=== PATIENT | male | born 1960 | race Caucasian/White ===

== ENCOUNTER → 2021-11-23 08:07 | Outpatient (CLI) | payer OTHER, SELFPAY ==
--- NOTE | ~2021-11-23 | CT_ITS ---
EXAMINATION: CTA chest DATE: 11/23/2021 08:51 INDICATION: A 70 aorta dilatation TECHNIQUE: Computed tomographic angiography (CTA) of the chest was performed without and with 100 mL Omnipque-350 intravenous contrast. Maximum intensity projection 3D-reconstructions of the aorta and o ther arteries were constructed by the technologist on a separate workstation. The dose-length product (DLP) was 915.96 mGy-cm. Automated exposure control and iterative reconstruction technique were empl oyed. COMPARISON: None FINDINGS: There is a fusiform aneurysm of the ascending aorta which measures 4.5 cm at the level of t he main pulmonary artery. There is no dissection. There are bilateral pulmonary nodules which measure up to 5 mm in the right lower lobe. Subsegmental atelectasis is seen in the lower lobes. The lungs a re free of focal airspace opacities. There is no pleural effusion or pneumothorax. No pathologically enlarged thoracic lymph nodes are identified. The heart size is normal. A dual-lead pacemaker of the left chest wall ends with its leads in expected positions. Cholelithiasis is noted. There is moderate thoracic spondylosis. IMPRESSION: 1. 4.5 cm fusiform aneurysm of the ascending aorta without dissection. Reviewed, dictated and finalized at location B.
[2021-11-23 08:31] LABS: Estimated Glomerular Filt Rate > 60
== END ==
DX: I71.2 Thoracic aortic aneurysm, without rupture (principal); Z95.0 Presence of cardiac pacemaker; R55 Syncope and collapse; R53.83 Other fatigue; G47.33 Obstructive sleep apnea (adult) (pediatric); E11.9 Type 2 diabetes mellitus without complications; E78.5 Hyperlipidemia, unspecified; I10 Essential (primary) hypertension; Z13.9 Encounter for screening, unspecified; M47.814 Spondylosis without myelopathy or radiculopathy, thoracic region
CPT/HCPCS: 71275; Q9967

== ENCOUNTER 2023-06-16 09:54 | Emergency (ER) | payer BC, SELFPAY ==
--- NOTE | ~2023-06-16 | XR_ITS ---
EXAMINATION: XR chest 2V DATE: 06/16/2023 10:25 INDICATION: Cough. Congestion. TECHNIQUE: Frontal and lateral views of the chest were obtained on 3 radiographs. COMPARISON: Chest single view 03/17/2019, chest CT 11/23/2021 FINDINGS: There is mild atelectasis in the lower lung zones. No pleural effusion or pneumothorax. The heart size is normal. There is a left chest wall pacer with leads in the right atrium and right vent ricle. IMPRESSION: 1. Mild atelectasis in the lower lung zones. Reviewed, dictated and finalized at location A.
[2023-06-16 10:05] VITALS: BP 150/69; PULSE 86; RESP 20; TEMP 36.6; O2SAT 98
--- NOTE | 2023-06-16 10:12 | ED.URI ---
HPI - URI/Sore Throat General Chief Complaint: Upper Respiratory Infection Stated Complaint: Chest Congestion/Cough Time Seen by Provider: 06/16/23 10:12 Source: patient Mode of arrival: ambulatory Limitations: no limitations History of Present Illness HPI Narrative: 62-year-old male presents with complaint sinus congestion, nasal congestion, pressure for the past 2-3 weeks. Reports that he has a lot of drainage. Over the past week he has developed a cough, chest congestion. Patient reports some pain with coughing to right lung. Reports some shortness. Patient is concerned he has pneumonia. Patient also reports history of nodules seen on a CT scan and has not follow-up imaging since. Patient requesting chest x-ray. Afebrile. Alert and well appearing. All Systems reviewed and negative except as noted above. Related Data Home Medications Medication Instructions Recorded Confirmed amlodipine 10 mg tablet mg 06/16/23 atorvastatin 80 mg tablet mg 06/16/23 empagliflozin 25 mg tablet mg 06/16/23 (Jardiance) fluticasone propionate 50 intranasal 06/16/23 mcg/actuation nasal spray,suspension hydrochlorothiazide 25 mg tablet mg 06/16/23 insulin NPH isoph U-100 human 100 unit subcut 06/16/23 unit/mL subcutaneous suspension (Novolin N NPH U-100 Insulin isophane) insulin regular human 100 unit/mL 06/16/23 injection solution (Novolin R Regular U-100 Insulin) losartan 100 mg tablet mg 06/16/23 metoprolol tartrate 50 mg tablet mg 06/16/23 omeprazole 20 mg capsule,delayed mg 06/16/23 release sertraline 50 mg tablet mg 06/16/23 tamsulosin 0.4 mg capsule mg PO 06/16/23 Allergies Allergy/AdvReac Type Severity Reaction Status Date / Time niacin AdvReac Unknown Other Verified 06/16/23 10:14 Review of Systems Review of Systems: CONSTITUTIONAL: Denies fever, chills, or sweats. EYES: Denies visual changes, redness, or discharge. ENT: reports rhinorrhea, congestion, sinus pressure. Denies sore throat, or otalgia. CARDIOVASCULAR: Denies chest pain, palpitations, or edema. RESPIRATORY: report cough and dyspnea with exertion. GASTROINTESTINAL: Denies abdominal pain, nausea, vomiting, or diarrhea. GENITOURINARY: Denies dysuria or hematuria. SKIN: Denies rash or itching. MUSCULOSKELETAL: Denies back pain, joint pain, or myalgia. NEUROLOGIC: Denies headache, numbness, or weakness. PSYCHIATRIC: Denies anxiety or depression. All other systems reviewed are negative, except as documented in HPI. PMFSH Comments At time of signature, agree with nursing past medical, surgical, social and family history. There is no relevant family history pertinent to the presenting complaint. Exam Narrative: GENERAL: This is a well-nourished, well-developed patient, in no apparent distress. HEAD: normocephalic, atraumatic. EYES: PERRL. Sclera clear/white. Vision is grossly intact. EARS: External ears normal, auditory canals clear and without drainage, Fluid bilateral TMs, slightly bulging without perforation or erythema. Hearing grossly intact. NOSE: External nose normal with Nasal drainage, erythema and swelling to bilateral nares. Frontal sinus tenderness bilaterally. THROAT: Mucous membranes moist, Postnasal drainage. NECK: Neck supple, non-tender without lymphadenopathy, masses or thyromegaly. CARDIOVASCULAR: Regular rate and rhythm without murmurs, gallops, or rubs. RESPIRATORY: decreased lung sounds to lower lung salvador bilaterally, otherwise normal. No wheezes, rales, or rhonchi. SKIN: warm, Dry, intact with no suspicious lesions or rash, good texture and turgor. NEURO: awake, alert, and oriented to person, place and time. There were no obvious focal neurologic abnormalities. EXTREMITIES: No joint tenderness, effusion, or edema noted. Course Course Level of Care: Express Care Visit Vital Signs Vital signs: Vital Signs Temperature 36.6 C 06/16/23 10:05 Pulse Rate 86 1
== END 2023-06-16 10:50 | disposition home or self-care (01) ==
PROVIDERS: Emergency Provider Nurse Practitioner Family
DX: J01.90 Acute sinusitis, unspecified (principal)
CPT/HCPCS: 71046; 99213; G0463

== ENCOUNTER 2023-11-21 10:35 | Emergency (ER) | payer BC, SELFPAY ==
[2023-11-21 10:41] VITALS: BP 145/73; PULSE 63; RESP 16; TEMP 36.8; O2SAT 97
--- NOTE | 2023-11-21 11:16 | ED.URI ---
HPI - URI/Sore Throat General Chief Complaint: Upper Respiratory Infection Stated Complaint: Congestion/Headache Time Seen by Provider: 11/21/23 11:20 Source: patient and RN notes reviewed Mode of arrival: ambulatory Limitations: no limitations History of Present Illness HPI Narrative: 63-year-old male presents concern for 4 day history of nasal congestion, drainage. Reports cough is starting. Reports he always gets this and ?settles an up my chest?. He reports sweats at night. Denies fever. Denies known sick contacts MD elicited complaint: cough and nasal congestion Related Data Home Medications Medication Instructions Recorded Confirmed amlodipine 10 mg tablet 10 mg PO DAILY 06/16/23 11/21/23 atorvastatin 80 mg tablet 80 mg PO DAILY 06/16/23 11/21/23 empagliflozin 25 mg tablet 25 mg PO DAILY 06/16/23 11/21/23 (Jardiance) hydrochlorothiazide 25 mg tablet 25 mg PO DAILY 06/16/23 11/21/23 losartan 100 mg tablet 100 mg PO DAILY 06/16/23 11/21/23 omeprazole 20 mg capsule,delayed 20 mg PO DAILY 06/16/23 11/21/23 release sertraline 50 mg tablet 50 mg PO DAILY 06/16/23 11/21/23 tamsulosin 0.4 mg capsule 0.4 mg PO DAILY 06/16/23 11/21/23 fenofibrate 160 mg tablet 160 mg PO DAILY 11/21/23 11/21/23 metformin 1,000 mg tablet 1,000 mg PO BID 11/21/23 11/21/23 rosuvastatin 20 mg tablet 20 mg PO DAILY 11/21/23 11/21/23 temazepam 30 mg capsule 30 mg PO DAILY 11/21/23 11/21/23 Allergies Allergy/AdvReac Type Severity Reaction Status Date / Time niacin AdvReac Unknown Rash Verified 11/21/23 11:04 Review of Systems Review of Systems: CONSTITUTIONAL: Denies malaise, chills, or fever. Reports sweats EYES: Denies visual changes, redness, or discharge. ENT: Reports rhinorrhea, congestion. Denies sinus pain, otalgia and sore throat. CARDIOVASCULAR: Denies chest pain, palpitations, or edema. RESPIRATORY: Reports cough. Denies dyspnea. GASTROINTESTINAL: Denies abdominal pain, nausea, vomiting, diarrhea SKIN: Denies rash or itching. MUSCULOSKELETAL: Denies myalgia. NEUROLOGIC: Denies headache. All systems reviewed & are unremarkable except as noted in HPI and below PMFSH Comments At time of signature, agree with nursing past medical, surgical, social and family history. There is no relevant family history pertinent to the presenting complaint Exam Narrative: GENERAL: Well-appearing, well-nourished, and in no acute distress. HEAD: Normocephalic EYES: PERRLA, conjunctivae clear ENT: Nares clear, turbinates edematous and erythematous, clear discharge. Mucous membranes moist. TM pearly cotton with dull light reflex bilaterally; no tragal tenderness. Oropharynx not erythematous without lesions. Tonsils not enlarged and without exudate, no drooling, no hoarseness, no trismus, uvula midline. NECK: Supple. No lymphadenopathy CHEST: Clear to auscultation, breath sounds equal. No wheezing, rhonchi, rales, or stridor. No respiratory distress, speaks in full sentences. HEART: Regular rate and rhythm. No murmur heard. SKIN: Warm, dry, no rash. NEURO: Alert and oriented x3. PSYCH: Normal mood and affect Course Course Emergency Course: Patient is aware of diagnosis, understands and agrees to treatment plan. Anticipatory guidance given. Patient agrees to follow-up as directed and is aware of reasons to seek care at the emergency department. Portions of this record may have been created with voice recognition software Level of Care: Express Care Visit Vital Signs Vital signs: Vital Signs Temperature 98.2 F 11/21/23 10:41 Pulse Rate 63 11/21/23 10:41 Respiratory Rate 16 11/21/23 10:41 Blood Pressure 145/73 H 11/21/23 10:41 Pulse Oximetry 97 11/21/23 10:41 Oxygen Delivery Room Air 11/21/23 10:41 Temperature 98.2 F 11/21/23 10:41 Pulse Rate 63 11/21/23 10:41 Respiratory Rate 16 11/21/23 10:41 Blood Pressure 145/73 H 11/21/23 10:41 Pulse Oximetry 97 11/21/23 10:41 Oxygen Delivery Room Air 03
== END 2023-11-21 11:32 | disposition home or self-care (01) ==
PROVIDERS: Emergency Provider Nurse Practitioner
DX: J06.9 Acute upper respiratory infection, unspecified (principal); E78.00 Pure hypercholesterolemia, unspecified; I10 Essential (primary) hypertension; E11.9 Type 2 diabetes mellitus without complications; Z95.0 Presence of cardiac pacemaker
CPT/HCPCS: 87426; 87804; 99213; G0463

== ENCOUNTER 2024-07-03 10:36 | Emergency (ER) | payer OTHER, SELFPAY ==
[2024-07-03 10:57] VITALS: BP 107/56; PULSE 64; RESP 16; TEMP 36.8; O2SAT 98
--- NOTE | 2024-07-03 10:59 | ED_ITS ---
HPI - General Adult General Chief complaint: Wound/Laceration Stated complaint: Left Hand Finger Pain Time Seen by Provider: 07/03/24 10:59 Source: patient, RN notes reviewed and old records reviewed Mode of arrival: ambulatory Limitations: no limitations History of Present Illness HPI narrative: 63-year-old male presents to the [facility] with laceration to the left middle finger dorsal aspect at the PIP joint. With bending the finger the wound gapes. wound approximately 1.5 cm Patient with full range of motion. Sensation intact. Bleeding is controlled Occurred 1-1/2 hours prior to arrival Patient reports tetanus 5-6 years ago Per medical record last Tdap 02/2018 Related Data Home Medications Medication Instructions Recorded Confirmed amlodipine 10 mg tablet 10 mg PO DAILY 06/16/23 11/21/23 atorvastatin 80 mg tablet 80 mg PO DAILY 06/16/23 11/21/23 empagliflozin 25 mg tablet 25 mg PO DAILY 06/16/23 11/21/23 (Jardiance) hydrochlorothiazide 25 mg tablet 25 mg PO DAILY 06/16/23 11/21/23 losartan 100 mg tablet 100 mg PO DAILY 06/16/23 11/21/23 omeprazole 20 mg capsule,delayed 20 mg PO DAILY 06/16/23 11/21/23 release sertraline 50 mg tablet 50 mg PO DAILY 06/16/23 11/21/23 tamsulosin 0.4 mg capsule 0.4 mg PO DAILY 06/16/23 11/21/23 fenofibrate 160 mg tablet 160 mg PO DAILY 11/21/23 11/21/23 metformin 1,000 mg tablet 1,000 mg PO BID 11/21/23 11/21/23 rosuvastatin 20 mg tablet 20 mg PO DAILY 11/21/23 11/21/23 temazepam 30 mg capsule 30 mg PO DAILY 11/21/23 11/21/23 Allergies Allergy/AdvReac Type Severity Reaction Status Date / Time niacin AdvReac Unknown Rash Verified 07/03/24 10:55 Review of Systems Review of Systems: All systems reviewed & are unremarkable except as noted in HPI and below Constitutional: Constitutional: Reports no additional constitutional complaints ENT: Reports system reviewed and no additional complaints, except as documented Cardiovascular: Cardiovascular: Reports no additional cardiovascular complaints, Denies chest pain and Denies dyspnea Respiratory: Respiratory: Reports no additional respiratory complaints, Denies chest congestion, Denies cough and Denies dyspnea Gastrointestinal: Gastrointestinal: Reports no additional gastrointestinal complaints, Denies abdominal pain, Denies nausea and Denies vomiting Musculoskeletal: Musculoskeletal: Reports no additional musculoskeletal complaints Integumentary/Breasts: Skin/Breast: Reports as per HPI and Reports wounds PMFSH Past Medical History Medical History (Updated 07/03/24 @ 19:02 by Mavis Selby APRN) H/O gastroesophageal reflux (GERD) History of high blood pressure History of high cholesterol Comments At the time of my signature, I reviewed and agree with the nursing past medical, surgical, social, and family history. There is no relevant family history pertinent to the patient complaint. Exam Const: General: cooperative, healthy appearing, comfortable, no acute distress, well developed, alert and well nourished Nutritional Appearance: well nourished Orientation/consciousness: patient oriented x3 Limitations: no limitations HENMT: Head: normal to inspection Ears: hearing grossly normal bilaterally and external ears normal Face/Nose/Sinus: Normal external nose present, normal facial exam and face symmetric Face and sinus: normal facial exam and face symmetric Eyes: General: appearance normal, both eyes and all related structures Alignment and Position: alignment normal Periorbital: periorbital findings normal Neck: Neck: normal visual inspection, full ROM, no lymphadenopathy and no meningeal signs Chest: Chest palpation & inspection: normal inspection of the chest Resp: Effort & Inspection: normal respiratory effort and able to speak in complete sentences Cardio: Rate: regular rate Skin: General skin exam: normal color and no rashes or lesions noted Lesions: no lesions Rashes: no rashes Other: 1.5 cm left 3rg FInger PIP dorsal Neuro: General: patient oriented x3, gait normal, tone normal, moves all extremities and no meningeal signs Cognition (Neuro): normal cognition S peech: normal speech Gait exam (Neuro): Normal gait present Extrem: General: normal to inspection, full ROM, capillary refill normal and normal gait Psych: Appearance: grossly normal and well kempt Mental Status: mental status grossly normal Speech and movement: Normal speech and movement present and Clear speech present Affect: normal affect Attitude: cooperative Course Course Level of Care: Express Care Visit Vital Signs Vital signs: Vital Signs Temperature 98.2 F 07/03/24 10:57 Pulse Rate 64 07/03/24 10:57 Respiratory Rate 16 07/03/24 10:57 Blood Pressure 107/56 L 07/03/24 10:57 Pulse Oximetry 98 07/03/24 10:57 Oxygen Delivery Room Air 07/03/24 10:57 Temperature 98.2 F 07/03/24 10:57 Pulse Rate 64 07/03/24 10:57 Respiratory Rate 16 07/03/24 10:57 Blood Pressure 107/56 L 07/03/24 10:57 Pulse Oximetry 98 07/03/24 10:57 Oxygen Delivery Room Air 07/03/24 10:57 Reviewed Procedures Laceration Laceration 1: Date: 07/03/24 Time: 11:20 Site: hand (3rd finger) Side (If applicable): left Size (cm): 1.5 Description: linear Depth: simple, single layer Local Anesthetic: lidocaine 1% Amount of anesthesia used (mL): 3.5 (Digital block) Pre-repair: wound explored and irrigated (200) ====== Skin Level ====== Skin layer closed with: nylon Size (cm): 5-0 Number of sutures: 2 Technique: simple, interrupted ====== Subcutaneous Layer ====== ====== Muscle Layer ====== ====== Tendon Layer ====== Medical Decision Making MDM Narrative Medical decision making narrative: Patient sitting comfortably in exam room. Nontoxic, vitals stable. Patient in no acute distress Patient presents for a laceration to the finger. No neuro deficits Two sutures placed. Patient tolerated well Updated tetanus Patient appropriate for outpatient treatment and follow-up Discharge instructions reviewed with patient, as well as provided in writing per nursing staff. The instructions also include specific and strict return/GO TO THE ER as well as f/u information. All questions have been answered, and the patient deny any further questions with discharge and discharge plan. Some parts of this dictation were generated by voice recognition software and may contain typographical and/or grammatical inaccuracies. Differential Diagnosis Differential Diagnosis: Finger laceration Medical Records Medical records reviewed: Yes I reviewed the external patient's medical records. Vital Signs Vital Signs: Vital Signs Temperature 98.2 F 07/03/24 10:57 Pulse Rate 64 07/03/24 10:57 Respiratory Rate 16 07/03/24 10:57 Blood Pressure 107/56 L 07/03/24 10:57 Pulse Oximetry 98 07/03/24 10:57 Oxygen Delivery Room Air 07/03/24 10:57 Temperature 98.2 F 07/03/24 10:57 Pulse Rate 64 07/03/24 10:57 Respiratory Rate 16 07/03/24 10:57 Blood Pressure 107/56 L 07/03/24 10:57 Pulse Oximetry 98 07/03/24 10:57 Oxygen Delivery Room Air 07/03/24 10:57 Reviewed Lab Data Lab results reviewed: Yes I reviewed the patient's lab results. Labs: Reviewed Critical Care Time Critical Care Time Critical Care Time: No Discharge Plan Discharge Clinical Impression: Finger laceration, Vaccine for [id number], combined Patient Disposition: Home, Self-Care Condition: Stable Instructions: Antibiotic Form, Finger Laceration (ED) Additional Instructions: Wash area twice a day with warm soapy water, pat dry Wear the finger splint for minimum of 3 days to reduce the chances of bending the area. Follow-up with your primary care provider in 10 days to have your stitches removed New or worsening symptoms go directly to the emergency room Patient Language: Croatian Prescriptions: No Action atorvastatin 80 mg tablet 80 mg PO DAILY tamsulosin 0.4 mg capsule 0.4 mg PO DAILY amlodipine 10 mg tablet 10 mg PO DAILY omeprazole 20 mg capsule,delayed release(DR/EC) 20 mg PO DAILY hydrochlorothiazide 25 mg tablet 25 mg PO DAILY losartan 100 mg tablet 100 mg PO DAILY sertraline 50 mg tablet 50 mg PO DAILY Jardiance 25 mg tablet 25 mg PO DAILY metformin 1,000 mg tablet 1,000 mg PO BID temazepam 30 mg capsule 30 mg PO DAILY rosuvastatin 20 mg tablet 20 mg PO DAILY fenofibrate 160 mg tablet 160 mg PO DAILY methylprednisolone [Medrol (Pablo)] 4 mg tablets,dose pack See Rx Instructions .ROUTE .COMPLEX Qty: 21 0RF Rx Instructions: orally per package directions Follow-up/Referrals: PHYSICIAN,BODY LINER [Primary Care Provider] - Stand Alone Forms: Work/School Release IP Time of Disposition: 11:32
[2024-07-03] MEDS: LIDOCAINE HCL 1% LOCAL INJ 2 ML AMPUL 4 ML INFILTRATE (11:16)
[2024-07-03] MEDS: TETANUS,DIPHTHERIA,AC PERTUSSIS ADULT (0.5 ML) BOOSTRIX IM (11:16)
== END 2024-07-03 11:45 | disposition home or self-care (01) ==
PROVIDERS: Emergency Provider Nurse Practitioner
DX: S61.213A Laceration without foreign body of left middle finger without damage to nail, initial encounter (principal); X58.XXXA Exposure to other specified factors, initial encounter; Z23 Encounter for immunization; K21.9 Gastro-esophageal reflux disease without esophagitis; I10 Essential (primary) hypertension; E78.00 Pure hypercholesterolemia, unspecified
CPT/HCPCS: 12001; 90471; 90715; 99212; G0463; J2003

== ENCOUNTER 2024-07-14 10:30 | Emergency (ER) | payer OTHER, SELFPAY ==
[2024-07-14 10:42] VITALS: BP 121/85; PULSE 68; RESP 18; TEMP 37; O2SAT 97
--- NOTE | 2024-07-14 11:00 | ED.SKABFB ---
HPI - Skin/Abscess/Foreign Bdy General Chief complaint: Skin/Abscess/Foreign Body Stated complaint: suture removal Time Seen by Provider: 07/14/24 10:53 Source: patient and RN notes reviewed Mode of arrival: ambulatory Limitations: no limitations History of Present Illness HPI narrative: Patient presents today for suture removal from his left 3rd finger. He had 2 sutures placed on 07/03/2024. Denies any issues with them. Related Data Home Medications Medication Instructions Recorded Confirmed amlodipine 10 mg tablet 10 mg PO DAILY 06/16/23 11/21/23 atorvastatin 80 mg tablet 80 mg PO DAILY 06/16/23 11/21/23 empagliflozin 25 mg tablet 25 mg PO DAILY 06/16/23 11/21/23 (Jardiance) hydrochlorothiazide 25 mg tablet 25 mg PO DAILY 06/16/23 11/21/23 losartan 100 mg tablet 100 mg PO DAILY 06/16/23 11/21/23 omeprazole 20 mg capsule,delayed 20 mg PO DAILY 06/16/23 11/21/23 release sertraline 50 mg tablet 50 mg PO DAILY 06/16/23 11/21/23 tamsulosin 0.4 mg capsule 0.4 mg PO DAILY 06/16/23 11/21/23 fenofibrate 160 mg tablet 160 mg PO DAILY 11/21/23 11/21/23 metformin 1,000 mg tablet 1,000 mg PO BID 11/21/23 11/21/23 rosuvastatin 20 mg tablet 20 mg PO DAILY 11/21/23 11/21/23 temazepam 30 mg capsule 30 mg PO DAILY 11/21/23 11/21/23 Allergies Allergy/AdvReac Type Severity Reaction Status Date / Time niacin AdvReac Unknown Rash Verified 07/14/24 11:00 Review of Systems Review of Systems: CONSTITUTIONAL: Denies body aches, fever, chills, or sweats. EYES: Denies visual changes, redness, or discharge. ENT: Denies rhinorrhea, congestion, sore throat, or otalgia. CARDIOVASCULAR: Denies chest pain, palpitations, or edema. RESPIRATORY: Denies cough or dyspnea. GASTROINTESTINAL: Denies abdominal pain, nausea, vomiting, or diarrhea. GENITOURINARY: Denies dysuria or hematuria. SKIN: + sutures MUSCULOSKELETAL: Denies back pain, joint pain, or myalgia. NEUROLOGIC: Denies headache, numbness, tingling, or weakness. PSYCH: Denies depression or anxiety. [facility] Past Medical History Medical History H/O gastroesophageal reflux (GERD) History of high blood pressure History of high cholesterol Comments At time of signature, I have reviewed and agree with nursing past medical, surgical, social and family history unless otherwise noted. Please see nursing chart for further information. There is no relevant family history pertinent to the presenting complaint Exam Narrative: GENERAL: Well-appearing, well-nourished, and in no acute distress. HEAD: Normocephalic, atraumatic. EYES: EOMI. No redness or drainage. Conjunctivae normal. ENT: Mucous membranes pink and moist. NECK: Normal AROM. CHEST: No respiratory distress. EXTREMITIES: Normal range of motion. No edema. SKIN: Warm, dry, no rash. Capillary refill normal. Normal skin turgor. 2 intact sutures to the left 3rd finger. No erythema, edema, drainage. NEURO: No focal deficits. Alert and oriented x3. Gait steady. PSYCH: Normal affect. No signs of depression or anxiety. Course Course Emergency Course: 6 2 sutures are removed. Patient tolerated procedure well. Dressed with Band-Aid. Level of Care: Express Care Visit Vital Signs Vital signs: Vital Signs Temperature 98.6 F 07/14/24 10:42 Pulse Rate 68 07/14/24 10:42 Respiratory Rate 18 07/14/24 10:42 Blood Pressure 121/85 07/14/24 10:42 Pulse Oximetry 97 07/14/24 10:42 Oxygen Delivery Room Air 07/14/24 10:42 Temperature 98.6 F 07/14/24 10:42 Pulse Rate 68 07/14/24 10:42 Respiratory Rate 18 07/14/24 10:42 Blood Pressure 121/85 07/14/24 10:42 Pulse Oximetry 97 07/14/24 10:42 Oxygen Delivery Room Air 07/14/24 10:42 Reviewed MDM - Skin/Abscess/Foreign Bdy MDM Narrative Medical decision making narrative: Wound healing appropriately. Sutures removed without difficulty. Anticipatory guidance given. Differential Diagnosis Differential diagnosis: Likely abscess of skin or subcutaneous tissue, cellulitis and other (Suture removal) Critical Care Time Critical Care Time Critical Care Time: No Discharge Plan Discharge Clinical Impression: Visit for suture removal Patient Disposition: Home, Self-Care Condition: Stable Instructions: Stitches Removal (ED) Additional Instructions: Both of your sutures have been removed without issue. Follow-up with your PCP with any additional concerns. Your blood pressure was elevated above 120/80 today at Urgent Care. This puts you above the threshold for follow up. Please schedule a followup visit with your personal physician as soon as possible, for further evaluation and treatment. Even blood pressure exceeding 120/80 may indicate pre-hypertension. Prescriptions: No Action atorvastatin 80 mg tablet 80 mg PO DAILY tamsulosin 0.4 mg capsule 0.4 mg PO DAILY amlodipine 10 mg tablet 10 mg PO DAILY omeprazole 20 mg capsule,delayed release(DR/EC) 20 mg PO DAILY hydrochlorothiazide 25 mg tablet 25 mg PO DAILY losartan 100 mg tablet 100 mg PO DAILY sertraline 50 mg tablet 50 mg PO DAILY Jardiance 25 mg tablet 25 mg PO DAILY metformin 1,000 mg tablet 1,000 mg PO BID temazepam 30 mg capsule 30 mg PO DAILY rosuvastatin 20 mg tablet 20 mg PO DAILY fenofibrate 160 mg tablet 160 mg PO DAILY methylprednisolone [Medrol (Pablo)] 4 mg tablets,dose pack See Rx Instructions .ROUTE .COMPLEX Qty: 21 0RF Rx Instructions: orally per package directions Follow-up/Referrals: PHYSICIAN,IN TUBE CONVERSION TECHNICIAN [Primary Care Provider] - Time of Disposition: 11:03
== END 2024-07-14 11:05 | disposition home or self-care (01) ==
PROVIDERS: Emergency Provider Nurse Practitioner
DX: S61.213D Laceration without foreign body of left middle finger without damage to nail, subsequent encounter (principal); X58.XXXD Exposure to other specified factors, subsequent encounter; K21.9 Gastro-esophageal reflux disease without esophagitis; I10 Essential (primary) hypertension; E78.00 Pure hypercholesterolemia, unspecified
CPT/HCPCS: 99211; G0463

== ENCOUNTER 2025-07-24 06:51 | Emergency (ER) | payer OTHER, SELFPAY ==
[2025-07-24 06:57] VITALS: BP 160/83; PULSE 74; RESP 14; TEMP 36.8; O2SAT 96
[2025-07-24 07:04] VITALS: BP 160/83; PULSE 74; RESP 14; TEMP 36.8
--- OUTSIDE RECORDS SUMMARY | 2025-07-24 07:33 | XMS_ITS | Encounter Summary ---
Author Organization [facility] Address [address] [place] [address] Phone Care Team Providers Care Flute Grinder Name Role Phone Troy Batres MD Unavailable Kourtney Resendez APRN, CARDIOVASCULAR OPERATING ROOM NURSE Primary Care P rovider Royal Salinas MD Unavailable [phone] Nicholas Mishra MD Unavailable Jany De La Torre APRN, [facility] Unavailable + [phone] Tayler Garrett APRN, CARDIOVASCULAR OPERATING ROOM NURSE Unavailable Reason for Visit * Reason Comments Medication Refill Encounter Details Date Type Department Care Team (Late st Contact Info) Description 04/20/2021 [facility] [place] [address] [place] [address] Kourtney Resendez APRN, CARDIOVASCULAR OPERATING ROOM NURSE [address] [place] [address] Medication Refill Social History Tobacco Use Types Packs/Day Years Used Date Smoking Tobacco: Never Smokeless Tobacco: Never Alcohol Use Standard Drinks/Week Comments Yes 2 (1 standard drink = 0.6 oz pur e alcohol) PHQ-2 Answer Date Recorded PHQ-2 Score 1 10/02/2019 Sexually Active Control Partners Comments Yes None Female Sex and Gender Information Value Date Recorded Sex Assigned at Male 04/16/2023 5:20 PM CDT Legal Sex Male 10:26 PM CDT Gender Identity Male 04/16/2023 5:20 PM CDT Sexual Orientation Not on file documented as of this encounter Miscellaneous Notes * Telephone Encounter - Dona Comer RN - 04/20/2021 2:42 PM CDT temazepam (RESTORIL) 30 MG Capsule 90 Capsule 0 03/23/2021 Refill too soon documented in this encounter Plan of Treatment Upcoming Encounters Date Type Department Care Team (Late st Contact Info) Description 08/05/2025 11:00 AM SENIOR MATERIALS ANALYST Office Visit [facility] #2 [place] [address] Nicholas Mishra MD #[address] [address] 10/20/2025 3:30 PM SENIOR MATERIALS ANALYST Office Visit [facility] - Primary Care - [place] [address] [place] [address] Kourtney Resendez APRN, CARDIOVASCULAR OPERATING ROOM NURSE [address] [place] [address] documented as of this encounter Visit Diagnoses Diagnosis Insomnia, unspecified type documented in this encounter Additional Health Concerns Infection Onset Date Last Indicated Resolved Time COVID - 19 09/05/2022 09/05/2022 09/15/2022 12:1 6 AM SENIOR MATERIALS ANALYST Respiratory Rule-Out 09/05/2022 09/05/2022 023 12:00 PM SENIOR MATERIALS ANALYST COVID - 19 Confirmed 09/30/2022 09/30/2022 023 12:17 AM SENIOR MATERIALS ANALYST COVID - 19 09/30/2022 09/30/2022 10/10/2022 12:1 6 AM SENIOR MATERIALS ANALYST COVID - 19 04/19/2023 04/19/2023 04/29/2023 12:1 8 AM CDT Assessment Noted Time PHQ-9 Depression Total Score: 1 10/02/19 20 3:00 PM SENIOR MATERIALS ANALYST documented as of this encounter Care Teams Flute Grinder Relationship Specialty Start Date End Date Kourtney Resendez APRN, CARDIOVASCULAR OPERATING ROOM NURSE [address] [place] [address] PCP - General Advanced Practice Nurse 10/19/17 Troy Batres MD [address] [place] [phone] Consulting Physician Pulmonary Disease 04/03/17 Royal Salinas MD #[address] [phone] Consulting Physician General Surgery 02/06/23 Nicholas Mishra MD #[address] [phone] Consulting Physician Urological Surgery 02/14/23 Jany De La Torre APRN, FLEET DISPATCH MANAGER #[address] [place] [address] Nurse Practitioner Advanced Practice Nurse 05/23/22 Tayler Garrett APRN, CARDIOVASCULAR OPERATING ROOM NURSE [address] [place] [address] Nurse Practitioner Advanced Practice Nurse 12/13/22 documented as of this encounter
--- OUTSIDE RECORDS SUMMARY | 2025-07-24 07:33 | XMS_ITS | Encounter Summary ---
Author Organization [facility] Address [address] [place] [address] Phone Care Team Providers Care Public Affairs Manager Name Role Phone Troy Batres MD Unavailable Kourtney Resendez APRN, SECOND OPERATOR Primary Care P rovider Royal Salinas MD Unavailable [phone] Nicholas Mishra MD Unavailable Jany De La Torre APRN, [facility] Unavailable [phone] Tayler Garrett APRN, SECOND OPERATOR Unavailable Encounter Details Date Type Department Care Team (Late st Contact Info) Description 11/09/2021 Transcribe Orders [facility] Central Scheduling [address] [place] [address] John Salazar [address] [place] [id number] Social History Tobacco Use Types Packs/Day Years Used Date Smoking Tobacco: Never Smokeless Tobacco: Never Alcohol Use Standard Drinks/Week Comments Yes 2 (1 standard drink = 0.6 oz pur e alcohol) PHQ-2 Answer Date Recorded Total Score - Questions 1-9 0 08/2 11/2020 Sexually Active Control Partners Comments Yes None Female Sex and Gender Information Value Date Recorded Sex Assigned at Male 04/16/2023 5:20 PM CDT Legal Sex Male 10:26 PM CDT Gender Identity Male 04/16/2023 5:20 PM CDT Sexual Orientation Not on file COVID-19 Exposure Response Date Recorded In the last month, have you been in contact with someone who was confirmed or suspected to have Coronavirus / COVID-19? No / Unsure 11/09/2021 7:32 AM MEDICAL DETAILIST documented as of this encounter Functional Status documented as of this encounter Mental Status * Question Answer Entry Date Author BP 122/60 11/09/2021 7:57 AM MEDICAL DETAILIST Mary Jorgensen, CHEMICAL MIXER Temp 97.8 11/09/2021 7:57 AM MEDICAL DETAILIST Mary Jorgensen, CHEMICAL MIXER Pulse 66 11/09/2021 7:57 AM MEDICAL DETAILIST Mary Jorgensen, CHEMICAL MIXER SpO2 95 11/09/2021 7:57 AM MEDICAL DETAILIST Mary Jorgensen, CHEMICAL MIXER Weight 3968 11/09/2021 7:57 AM MEDICAL DETAILIST Mary Jorgensen, CHEMICAL MIXER documented in this encounter Plan of Treatment Upcoming Encounters Date Type Department Care Team (Late st Contact Info) Description 08/05/2025 11:00 AM MEDICAL DETAILIST Office Visit [facility] #[address] [place] [phone] Nicholas Mishra MD #[address] [phone] 10/20/2025 3:30 PM MEDICAL DETAILIST Office Visit [facility] - Primary Care - [place] [address] [place] [address] Kourtney Resendez APRN, SECOND OPERATOR [address] [place] [address] documented as of this encounter Visit Diagnoses Not on filedocumented in this encounter Additional Health Concerns Infection Onset Date Last Indicated Resolved Time COVID - 19 09/05/2022 09/05/2022 09/15/2022 12:1 6 AM MEDICAL DETAILIST Respiratory Rule-Out 09/05/2022 09/05/2022 023 12:00 PM MEDICAL DETAILIST COVID - 19 Confirmed 09/30/2022 09/30/2022 023 12:17 AM MEDICAL DETAILIST COVID - 19 09/30/2022 09/30/2022 10/10/2022 12:1 6 AM MEDICAL DETAILIST COVID - 19 04/19/2023 04/19/2023 04/29/2023 12:1 8 AM CDT Assessment Noted Time PHQ-9 Depression Total Score: 0 04/25/20 21 3:00 PM CDT documented as of this encounter Care Teams Public Affairs Manager Relationship Specialty Start Date End Date Kourtney Resendez APRN, SECOND OPERATOR [address] [place] [address] PCP - General Advanced Practice Nurse 10/19/17 Troy Batres MD [address] [place] [address] Consulting Physician Pulmonary Disease 04/03/17 Royal Salinas MD #2 [facility] [address] [place] [address] Consulting Physician General Surgery 02/06/23 Nicholas Mishra MD #2 [facility] [address] [place] [address] Consulting Physician Urological Surgery 02/14/23 Jany De La Torre APRN, FIRE INSPECTOR [address] [place] [address] Nurse Practitioner Advanced Practice Nurse 05/23/22 Tayler Garrett APRN, SECOND OPERATOR [address] [place] [address] Nurse Practitioner Advanced Practice Nurse 12/13/22 documented as of this encounter
--- OUTSIDE RECORDS SUMMARY | 2025-07-24 07:33 | XMS_ITS | Encounter Summary ---
Author Organization [facility] Address [address] [place] [address] Care Team Providers Care Registered Medical Assistant Name Role Phone Donell Maza MD Primary Care Provider [phone] Encounter Details Date Type Department Care Team (Late st Contact Info) Description 03/19/2020 Lab Requisition [facility] [address] [place] [address] Shelton Wiley MD Social History Tobacco Use Types Packs/Day Years Used Date Smoking Tobacco: Never Smokeless Tobacco: Never Alcohol Use Standard Drinks/Week Comments Yes 1.7 (1 standard drink = 0.6 oz p ure alcohol) Sex and Gender Information Value Date Recorded Sex Assigned at Not on file Legal Sex Male 7:09 PM WALL CLEANER Gender Identity Not on file Sexual Orientation Not on file documented as of this encounter Plan of Treatment Not on file documented as of this encounter Procedures Procedure Name Priority Date/Time Associated Diagnosis Comments SARS-COV-2 (COVID-19) IN HOUSE Routine 03/18/2020 4:05 AM CDT documented in this encounter Results * (ABNORMAL) SARS-COV-2 (COVID-19) IN HOUSE (03/18/2020 4:05 AM CDT) COVID-19 PCR Detected( AA) Not detected, Invalid 03/20/2020 12:41 AM CDT [facility] Microbiology SPECIMEN FROM NASOPHARYNGEAL STRUCTURE / Unknown Collection / Unknown 03/18/2020 4:05 AM CDT 03/19/2020 10:25 AM CDT Narrative [facility] - 03/20/2020 12:41 AM CDT This Real Time RT-PCR assay was developed and its performance characteristics determined by [facility]. This test has been authorized by the Food and Drug administration (FDA)under an Emergency Use Authorization (EUA). This test has been validated in accordance with the FDA's guidance document Policy for Diagnostic Testing in Laboratories Certified to perform High Complexity Testing under CLIA prior to Emergency Use Authorization for Coronavirus Disease-2019 during the Public Health Emergency issued on November 01, 2019. FDA independent review of this validation is pending. This test is only authorized for the duration of time the declaration that circumstances exist justifying the authorization of emergency use of in vitro diagnostic tests for detection of SARS-CoV-2 virus and/or diagnosis of COVID-19 infection under section 564(b)(1) of the Act, 21 U.S.C 360bbb-3 (b)(1), unless the authorization is terminated or revoked sooner. Shelton Wiley MD LAB - MICROBIOLOGY ORDERABL ES Final Result [facility] [address] [place], [place] [address], [facility] [phone] documented in this encounter Visit Diagnoses Not on filedocumented in this encounter Additional Health Concerns Infection Onset Date Last Indicated Resolved Time COVID-19 Confirmed 03/18/2020 03/18/2020 0 4:34 AM CDT COVID-19 Under Investigation 03/19/2020 03/18/2020 03/20/2020 12:41 AM CDT documented as of this encounter Care Teams Registered Medical Assistant Relationship Specialty Start Date End Date Donell Maza MD PCP - General 05/22/11 documented as of this encounter
--- OUTSIDE RECORDS SUMMARY | 2025-07-24 07:33 | XMS_ITS | Encounter Summary ---
Author Organization [facility] Address [address] [place] [address] Phone Care Team Providers Care Farm Reporter Name Role Phone Troy Batres MD Unavailable Kourtney Resendez APRN, INTERNET SALES ASSOCIATE Primary Care P rovider Royal Salinas MD Unavailable [phone] Nicholas Mishra MD Unavailable Jany De La Torre APRN, [facility] Unavailable + [phone] Tayler Garrett APRN, INTERNET SALES ASSOCIATE Unavailable Reason for Visit * Reason Comments Medication Refill Encounter Details Date Type Department Care Team (Late st Contact Info) Description 01/15/2022 Refill [facility] - Primary Care - [place] [address] [place] [address] Kourtney Resendez APRN, INTERNET SALES ASSOCIATE [address] [place] [address] Medication Refill Social History Tobacco Use Types Packs/Day Years Used Date Smoking Tobacco: Never Smokeless Tobacco: Never Alcohol Use Standard Drinks/Week Comments Yes 2 (1 standard drink = 0.6 oz pur e alcohol) PHQ-2 Answer Date Recorded Total Score - Questions 1-9 0 04/04 Sexually Active Control Partners Comments Yes None Female Sex and Gender Information Value Date Recorded Sex Assigned at Male 04/16/2023 5:20 PM CDT Legal Sex Male 10:26 PM CDT Gender Identity Male 04/16/2023 5:20 PM CDT Sexual Orientation Not on file COVID-19 Exposure Response Date Recorded In the last 10 days, have yo u been in contact with someone who was confirmed or suspected to have Coronavirus/COVID-19? No / Unsure 01/18/2022 8:44 AM CDT documented as of this encounter Functional Status documented as of this encounter Mental Status * Question Answer Entry Date Author BP 120/70 01/18/2022 8:56 AM CDT Mamadou Wheat, RMA Temp 97.5 01/18/2022 8:56 AM CDT Mamadou Wheat, RMA Pulse 81 01/18/2022 8:56 AM CDT Mamadou Wheat, RMA SpO2 96 01/18/2022 8:56 AM CDT Mamadou Wheat, RMA Weight 3968 01/18/2022 8:56 AM CDT Mamadou Wheat, RMA documented in this encounter Plan of Treatment Upcoming Encounters Date Type Department Care Team (Late st Contact Info) Description 08/05/2025 11:00 AM PARALEGAL INSTRUCTOR Office Visit [facility] [address] [place] [phone] Nicholas Mishra MD #2 [facility], [address] [address] 10/20/2025 3:30 PM PARALEGAL INSTRUCTOR Office Visit [facility] - Primary Care - [place] [address] [place] [phone] Kourtney Resendez APRN, INTERNET SALES ASSOCIATE [address] [place] [address] documented as of this encounter Visit Diagnoses Diagnosis Mixed hyperlipidemia documented in this encounter Additional Health Concerns Infection Onset Date Last Indicated Resolved Time COVID - 19 09/05/2022 09/05/2022 09/15/2022 12:1 6 AM PARALEGAL INSTRUCTOR Respiratory Rule-Out 09/05/2022 09/05/2022 023 12:00 PM PARALEGAL INSTRUCTOR COVID - 19 Confirmed 09/30/2022 09/30/2022 023 12:17 AM PARALEGAL INSTRUCTOR COVID - 19 09/30/2022 09/30/2022 10/10/2022 12:1 6 AM PARALEGAL INSTRUCTOR COVID - 19 04/19/2023 04/19/2023 04/29/2023 12:1 8 AM CDT Assessment Noted Time PHQ-9 Depression Total Score: 0 04/25/20 21 3:00 PM CDT documented as of this encounter Care Teams Farm Reporter Relationship Specialty Start Date End Date Kourtney Resendez APRN, INTERNET SALES ASSOCIATE [address] [place] [address] PCP - General Advanced Practice Nurse 10/19/17 Troy Batres MD [address] [place] [address] Consulting Physician Pulmonary Disease 04/03/17 Royal Salinas MD #2 [facility] [address] [place] [address] Consulting Physician General Surgery 02/06/23 Nicholas Mishra MD #2 [facility] [address] [place] [address] Consulting Physician Urological Surgery 02/14/23 Jany De La Torre APRN, SALES AND MARKETING DIRECTOR #[address] [place] [address] Nurse Practitioner Advanced Practice Nurse 05/23/22 Tayler Garrett APRN, INTERNET SALES ASSOCIATE #[address] [place] [address] Nurse Practitioner Advanced Practice Nurse 12/13/22 documented as of this encounter
--- OUTSIDE RECORDS SUMMARY | 2025-07-24 07:33 | XMS_ITS | Clinical Summary ---
Author Organization [facility] Address [address] [place] [address] Care Team Providers Care Hog Room Supervisor Name Role Phone Donell Maza MD Primary Care Provider [phone] Source Comments [facility],non-owned Affiliates and Associated Physician Practices is amultiple site organization consisting of ambulatory clinics and hospital sitesin [place], [place], [place] and [place]. This disclosure is being madepursuant to the Care Everywhere program and may not contain all information available regarding this patient. Last updated 18.[facility], [place] Family History Medical History Relation Name Comments Cancer Father Tuberculosis Father Cancer Maternal Grandmother Lung Disease Maternal Grandmother Cancer Mother Diabetes Mother Lung Disease Mother Cancer Sister Relation Name Status Comments Father Maternal Grandmother Mother Sister Social History Tobacco Use Types Packs/Day Years Used Date Smoking Tobacco: Never Smokeless Tobacco: Never Alcohol Use Standard Drinks/Week Comments Yes 1.7 (1 standard drink = 0.6 oz p ure alcohol) Sex and Gender Information Value Date Recorded Sex Assigned at Not on file Legal Sex Male 7:09 PM LEAD GENERATION REPRESENTATIVE Gender Identity Not on file Sexual Orientation Not on file Plan of Treatment Health Maintenance Due Date Last Done Comments COLOGUARD (AGES 45-75) - COLON CA SCREENING 1960 COLON MONITORING 1960 COLONOSCOPY - COLON CA SCREENING 1960 CT COLONOGRAPHY - COLON CA SCREENING 1960 Colorectal Cancer Screening 1960 FIT - COLON CA SCREENING 1960 FLEX SIG - COLON CA SCREENING 1960 LIPID TESTING 1960 HIV SCREENING 1975 HEPATITIS C SCREENING 07/24/1978 DTAP/TDAP/TD VACCINES (1 - Tdap) 1979 PNEUMOCOCCAL VACCINE 50+ (1 of 1 - PCV) 2010 ZOSTER VACCINE (1 of 2) 2010 DEPRESSION SCREENING 09/03/2024 COVID-19 VACCINE (4 - 2024- season) 2025 03/19/2022, 11/23/2020, 11/02/2020 INFLUENZA VACCINE (#1) 2025 , 11/09/2021, 06/28/2020, Additional history exists Respiratory Syncytial Virus (RSV) Vaccine Pt: or over 60 yrs (1 - 1-dose 75+ series) 2035 HEPATITIS B VACCINE Aged Out No longe r eligible based on patient's age to complete this topic HIB VACCINE Aged Out No longer eligi ble based on patient's age to complete this topic HPV VACCINE Aged Out No longer eligi ble based on patient's age to complete this topic MENINGOCOCCAL (Group B) VACCINE SHARED DECISION-MAKING Aged Out No longer eligible based on patient's age to complete this topic MENINGOCOCCAL GROUPS A/C/Y/W VACCINE Aged Out No longer eligible based on patient's age to complete this topic Insurance [facility] Care Teams Hog Room Supervisor Relationship Specialty Start Date End Date Donell Maza MD PCP - General 05/22/11
--- OUTSIDE RECORDS SUMMARY | 2025-07-24 07:33 | XMS_ITS | Encounter Summary ---
Author Organization [facility] Address [address] [place] [address] Phone Care Team Providers Care Software Design Manager Name Role Phone Troy Batres MD Unavailable Kourtney Resendez APRN, ASSISTANT PRESS OPERATOR OFFSET Primary Care P rovider Royal Salinas MD Unavailable Nicholas Mishra MD Unavailable Jany De La Torre APRN, [facility] Unavailable [phone] Tayler Garrett APRN, ASSISTANT PRESS OPERATOR OFFSET Unavailable Encounter Details Date Type Department Care Team (Late st Contact Info) Description 11/09/2021 Transcribe Orders [facility] Central Scheduling [address] [place] [address] John Salazar [address] [place] [id number] Social History Tobacco Use Types Packs/Day Years [...] COVID-19? No / Unsure 11/09/2021 7:32 AM TURNING SANDER TENDER documented as of this encounter Functional Status documented as of this encounter Mental Status * Question Answer Entry Date Author BP 122/60 11/09/2021 7:57 AM TURNING SANDER TENDER Mary Jorgensen, MOVEMENT THERAPIST Temp 97.8 11/09/2021 7:57 AM TURNING SANDER TENDER Mary Jorgnesen, MOVEMENT THERAPIST Pulse 66 11/09/2021 7:57 AM TURNING SANDER TENDER Mary Jorgensen, MOVEMENT THERAPIST SpO2 95 11/09/2021 7:57 AM TURNING SANDER TENDER Mary Jorgensen, MOVEMENT THERAPIST Weight 3968 11/09/2021 7:57 AM TURNING SANDER TENDER Mary Jorgensen, MOVEMENT THERAPIST documented in this encounter Plan of Treatment Upcoming Encounters Date Type Department Care Team (Late st Contact Info) Description 08/05/2025 11:00 AM TURNING SANDER TENDER Office Visit [facility] #2 [place] [address] Nicholas Mishra MD #[address] [phone] 10/20/2025 3:30 PM TURNING SANDER TENDER Office Visit [facility] - Primary Care - [place] [address] [place] [address] Kourtney Resendez APRN, ASSISTANT PRESS OPERATOR OFFSET [address] [place] [address] documented as of this encounter Visit Diagnoses Not on filedocumented in this encounter Additional Health Concerns Infection Onset Date Last Indicated Resolved Time COVID - 19 09/05/2022 09/05/2022 09/15/2022 12:1 6 AM TURNING SANDER TENDER Respiratory Rule-Out 09/05/2022 09/05/2022 023 12:00 PM TURNING SANDER TENDER COVID - 19 Confirmed 09/30/2022 09/30/2022 023 12:17 AM TURNING SANDER TENDER COVID - 19 09/30/2022 09/30/2022 10/10/2022 12:1 6 AM TURNING SANDER TENDER COVID - 19 04/19/2023 04/19/2023 04/29/2023 12:1 8 AM CDT Assessment Noted Time PHQ-9 Depression Total Score: 0 04/25/20 21 3:00 PM CDT documented as of this encounter Care Teams Software Design Manager Relationship Specialty Start Date End Date Kourtney Resendez APRN, ASSISTANT PRESS OPERATOR OFFSET [address] [place] [address] PCP - General Advanced Practice Nurse 10/19/17 Troy Batres MD #2 [place] [address] Consulting Physician Pulmonary Disease 04/03/17 Royal Salinas MD #2 [facility] [address] [place] [address] Consulting Physician General Surgery 02/06/23 Nicholas Mishra MD #2 [facility] [address] [place] [address] Consulting Physician Urological Surgery 02/14/23 Jany De La Torre APRN, ICT DEVELOPER #[address] [place] [address] Nurse Practitioner Advanced Practice Nurse 05/23/22 Tayler Garrett APRN, ASSISTANT PRESS OPERATOR OFFSET #[address] [place] [address] Nurse Practitioner Advanced Practice Nurse 12/13/22 documented as of this encounter
--- OUTSIDE RECORDS SUMMARY | 2025-07-24 07:34 | XMS_ITS | Encounter Summary ---
Author Organization [facility] Address [address] [place] [address] Phone Care Team Providers Care Bill Sorter Name Role Phone Kourtney Resendez APRN, [employer] Primary Care P rovider Royal Salinas MD Unavailable [phone] Nicholas Mishra MD Unavailable Jany De La Torre APRN, [facility] Unavailable [phone] Tayler Garrett APRN, [employer] Unavailable Encounter Details Date Type Department Care Team (Late st Contact Info) Description 12/11/2024 Transcribe Orders [facility] Central Scheduling [address] [place] [address] John Salazar [address] [place] [address] Social History Tobacco Use Types Packs/Day Years Used Date Smoking Tobacco: Never Smokeless Tobacco: Never Alcohol Use Standard Drinks/Week Comments Yes 0 (1 standard drink = 0.6 oz pur e alcohol) Occasionally 2 drinks [facility] Utilities Answer Date Recorded In the past 12 months has [employer], oil, or water [employer] threatened to shut off services in your home? Patient declined 11/20/2024 Social Connection and Isolation Panel Answer Date Recorded In a typical week, how many times do you talk on the phone with family, friends, or neighbors? Patient declined 11/20/2024 How often do you get togethe r with friends or relatives? Patient declined 11/20/2024 How often do you attend roman catholic or moravian serv ices? Patient declined 11/20/2024 Do you belong to any clubs o r organizations such as roman catholic groups, unions, fraternal or athletic groups, or school groups? Patient declined 11/20/2024 How often do you attend meet ings of the clubs or organizations you belong to? Patient declined 11/20/2024 Are you , , di vorced, , never , or living with a partner? Patient declined 11/20/2024 AUDIT-C Answer Date Recorded Q1: How often do you have a drink containing alc ohol? Patient declined 11/20/2024 Q2: How many drinks containi ng alcohol do you have on a typical day when you are drinking? Patient declined 11/20/2024 Q3: How often do you have si x or more drinks on one occasion? Patient declined 11/20/2024 Overall Financial Resource Strain (CARDIA) Answe r Date Recorded How hard is it for you to pa y for the very basics like food, housing, medical care, and heating? Patient declined 11/20/2024 PHQ-2 Answer Date Recorded Total Score - Questions 1-9 0 11/02 [facility] - Occupational Stress Questionnaire Answer Date Recorded Do you feel stress - tense, restless, nervous, or anxious, or unable to sleep at night because your mind is troubled all the time - these days? Patient declined 11/20/2024 Exercise Vital Sign Answer Date Recorde d On average, how many days pe r week do you engage in moderate to strenuous exercise (like a brisk walk)? Patient declined On average, how many minutes do you engage in exercise at this level? Patient declined 11/20/2024 Hunger Vital Sign Answer Date Recorded Within the past 12 months, y ou worried that your food would run out before you got the money to buy more. Patient declined Within the past 12 months, t he food you bought just didn't last and you didn't have money to get more. Patient declined PRAPARE - Transportation Answer Date Re corded In the past 12 months, has l ack of transportation kept you from medical appointments or from getting medications? Patient declined 11/20/2024 In the past 12 months, has l ack of transportation kept you from meetings, work, or from getting things needed for daily living? Patient declined 11/20/2024 Housing Stability Vital Sign Answer Meliton e Recorded In the last 12 months, was t here a time when you were not able to pay the mortgage or rent on time? Patient declined 11/21/19 25 Number of Times Moved in the Last Year Not on fi le 11/20/2024 At any time in the past 12 m onths, were you homeless or living in a [facility] (including now)? Patient declined 11/20/2024 Education Answer Date Recorded What is the highest level of school you have completed or the highest degree you have received? 12th grade 05/31/2022 Sexually Active Control Partners Comments Yes None Female Sex and Gender Information Value Date Recorded Sex Assigned at Male 04/16/2023 5:20 PM CDT Legal Sex Male 10:26 PM CDT Gender Identity Male 04/16/2023 5:20 PM CDT Sexual Orientation Not on file documented as of this encounter Plan of Treatment Upcoming Encounters Date Type Department Care Team (Late st Contact Info) Description 08/05/2025 11:00 AM BUSINESS PRACTICES SUPERVISOR Office Visit [facility] [address] [place] [phone] Nicholas Mishra MD [address], [facility] [[email or web address] [address] [place] [address] 10/20/2025 3:30 PM BUSINESS PRACTICES SUPERVISOR Office Visit [facility] - Primary Care - [place] [address] [place] [phone] Kourtney Resendez, GUT SNATCHER, [employer]CH[employer] ENG[employer] [address] [place] [address] documented as of this encounter Goals Goal Patient Goal Type Associated Problems Recent Progress Patient-Stated? Author Help patient manage hypertension Care Plan [facility] HYPERTENSION CONCERN (PATIENT ON HIGH BLOOD PRESSURE MEDICATIONS) No Kourtney Pineda APRN, MAGAN Help patient manage nicotine dependency Care Plan [facility] NICOTINE DEPENDENCY CONCERN No Kourtney Pineda APRN, CNP documented as of this encounter Visit Diagnoses Not on filedocumented in this encounter Additional Health Concerns Active Problems Noted Date Diagnosed Date [facility] HYPERTENSION CONCERN (P ATIENT ON HIGH BLOOD PRESSURE MEDICATIONS) 12/15/2022 [facility] NICOTINE DEPENDENCY CONCERN 12/15/2022 Assessment Noted Time PHQ-9 Depression Total Score: 0 11/21/19 25 11:28 AM CDT documented as of this encounter Care Teams Bill Sorter Relationship Specialty Start Date End Date Kourtney Resendez APRN, MAGAN [address] [place] [address] PCP - General Advanced Practice Nurse 10/19/17 Royal Salinas MD [address] [phone] Consulting Physician General Surgery 02/06/23 Nicholas Mishra MD [address] [phone] Consulting Physician Urological Surgery 02/14/23 Jany De La Torre APRN, FARROWING WORKER [address] [place] [address] Nurse Practitioner Advanced Practice Nurse 05/23/22 Tayler Garrett APRN, [employer]CH[employer]ICAL ENGINEER [address] [place] [address] Nurse Practitioner Advanced Practice Nurse 12/13/22 documented as of this encounter
--- OUTSIDE RECORDS SUMMARY | 2025-07-24 07:34 | XMS_ITS | Clinical Summary ---
Author Organization [address] Address [address] [place] [id number] Care Team Providers Care Transmission Specialist Name Role Phone Kourtney Resendez NP Primary Care Provide r Allergies Active Allergy Reactions Criticality Noted Date Comments Atorvastatin Other (See comments),Unknown Low 06/11/2023 Niacin Hives,Itching Medium 07/31/2011 Other reaction(s): itchiness, flushing Djhinjz-Oqj-Ggq Reductase Inhibitors Muscle pain Medium 12/24/2024 Medications fluticasone propionate (FLONASE) 50 mcg/actuation nasal spray USE 2 SPRAYS IN EACH NOSTRIL DAILY DIRECTED. 017 Active temazepam (RESTORIL) 30 mg capsule TAKE 1 CAPSULE BY MOUTH NIGHTLY NEEDED FOR INSOMNIA 018 Active hydroCHLOROthiazi de (HYDRODIURIL) 25 mg tablet TK 1 T PO D Active losartan (COZAAR) 100 mg tablet TK 1 T PO D Active sertraline (ZOLOFT) 50 mg tablet Active hydrALAZINE (APRESOLINE) 50 mg tabletIndications :hypertension Take 1 tablet (50 mg total) by mouth 3 (three) times a day Active ascorbic acid (VITAMIN C) 500 mg tablet,chewable Take 1 tablet/chew tab (500 mg total) by mouth early childhood assistant before breakfast Active aspirin-calcium carbonate 81 mg-300 mg calcium(777 mg) tablet Take 81 mg by mouth early childhood assistant before breakfast Active cholecalciferol (VITAMIN D-3) 400 unit capsule Take 1 tablet/capsule (400 Units total) by mouth early childhood assistant before breakfast Active tadalafiL (CIALIS) 20 mg tabletIndications :Type 2 diabetes mellitus with hypoglycemia without coma, with long-term current use of insulin ([facility]) Take 0.5 tablets (10 mg total) by mouth as needed 016 Active metoprolol tartrate (LOPRESSOR) 50 mg immediate release tablet 022 Active amLODIPine (NORVASC) 10 mg tablet Take 1 tablet (10 mg total) by mouth daily 022 Active tamsulosin (FLOMAX) 0.4 mg extended release capsule Take 1 capsule (0.4 mg total) by mouth daily 022 Active fenofibrate (TRIGLIDE) 160 mg tablet Take 1 tablet (160 mg total) by mouth daily 023 Active ondansetron ODT (ZOFRAN-ODT) 4 mg disintegrating tablet DISSOLVE ONE TABLET BY MOUTH EVERY 8 HOURS NEEDED FOR NAUSEA 023 Active rosuvastatin (CRESTOR) 20 mg tablet Take 1 tablet (20 mg total) by mouth daily 023 Active dicyclomine (BENTYL) 20 mg tablet Take 1 tablet (20 mg total) by mouth every 6 (six) hours as needed 023 Active blood glucose diagnostic (OneTouch Verio test strips) stripIndications: Type 2 diabetes mellitus with hyperglycemia, with long-term current use of insulin ([facility]) USE TO TEST BLOOD SUGAR 3 TIMES DAILY 300 strip 3 024 Active Kerendia 10 mg tablet Take 1 tablet by mouth daily Active omeprazole (PriLOSEC) 20 mg capsule 024 Active insulin NPH (HumuLIN N, NovoLIN N) 100 unit/mL vial for injectionIndicati ons:Type 2 diabetes mellitus without complication, with long-term current use of insulin ([facility]) Inject 45 Units under the skin 2 (two) times a day after breakfast and dinner Use novolin insulin as per insurance formulary. E11.65 90 mL 4 025 Active HYDROcodone-aceta minophen (NORCO) 5-325 mg per tablet TAKE 1 TABLET BY MOUTH EVERY 8 HOURS NEEDED FOR SEVERE PAIN. Active empagliflozin (Jardiance) 25 mg tabletIndications :Type 2 diabetes mellitus with hyperglycemia, with long-term current use of insulin ([facility]) TAKE 1 TABLET EARLY IN THE MORNING BEFORE BREAKFAST 90 tablet 3 Active insulin syringe-needle U-100 (CareTouch Insulin Syringe) 1 mL 31 gauge x 5/16 syringeIndication s:Type 2 diabetes mellitus without complication, with long-term current use of insulin ([facility]) Use 1ml insulin syringe to deliver insulin 4x daily. e11.65 400 each 3 Active metFORMIN (GLUCOPHAGE) 1,000 mg tabletIndications :Type 2 diabetes mellitus with hyperglycemia, with long-term current use of insulin ([facility]) Take 1 tablet (1,000 mg total) by mouth 2 (two) times a day with meals E11.65 180 tablet 3 Active tirzepatide (Mounjaro) 10 mg/0.5 mL pen injector injectionIndicati ons:type 2 diabetes mellitus Inject 0.5 mL (10 mg total) under the skin every 7 days E11.65 6 mL 4 Active blood-glucose sensor (Pieceablecom G7 Sensor) deviceIndications :Type 2 diabetes mellitus with hyperglycemia, with long-term current use of insulin ([facility]) Use to continuously monitor glucose, change every 10 days. E11.65 3 each Active cyclobenzaprine (FLEXERIL) 10 mg tablet Active furosemide (LASIX) 20 mg tablet Active valACYclovir (VALTREX) 1 gram tablet Active meloxicam (MOBIC) 7.5 mg tablet Active insulin regular (HumuLIN R, NovoLIN R) 100 unit/mL vial for injectionIndicati ons:Type 2 diabetes mellitus with hyperglycemia, with long-term current use of insulin ([facility]) Inject 45 Units under the skin 2 (two) times a day before breakfast and lunch . . 1:50 Correctional Scale 0-150=0uts, 151-199=1uts, 200-249=2uts, 250-299=3uts, 300-349=4uts 350- 399=5uts, 400-449=6uts, 450-499 =7uts, >500= take 8 units TDD: 115 units 90 mL 4 025 Active meloxicam (MOBIC) 15 mg tablet Take 1 tablet (15 mg total) by mouth daily 017 2024 Discontinued(A lternate therapy) empagliflozin (Jardiance) 25 mg tabletIndications :Type 2 diabetes mellitus with hyperglycemia, with long-term current use of insulin ([facility]) TAKE 1 TABLET EARLY IN THE MORNING BEFORE BREAKFAST 90 tablet 3 024 2024 Discontinued(R eorder) metFORMIN (GLUCOPHAGE) 1,000 mg tabletIndications :Type 2 diabetes mellitus with hyperglycemia, with long-term current use of insulin ([facility]) Take 1 tablet (1,000 mg total) by mouth 2 (two) times a day with meals E11.65 180 tablet 3 024 2024 Discontinued(R eorder) insulin regular (HumuLIN R, NovoLIN R) 100 unit/mL vial for injectionIndicati ons:Type 2 diabetes mellitus without complication, with long-term current use of insulin ([facility]) Inject 45 Units under the skin 2 (two) times a day before breakfast and lunch . Use novolin insulin as per insurance formulary. E11.65 90 mL 4 025 2024 Discontinued(R eorder) insulin syringe-needle U-100 (CareTouch Insulin Syringe) 1 mL 31 gauge x 5/16 syringeIndication s:Type 2 diabetes mellitus without complication, with long-term current use of insulin ([facility]) Use 1ml insulin syringe to deliver insulin 4x daily. e11.65 400 each 3 025 2024 Discontinued(R eorder) Dexcom G7 Sensor deviceIndications :Type 2 diabetes mellitus without complication, with long-term current use of insulin ([facility]) 1 Device continuously . Change every 10 days. E11.65 10 each 3 025 2024 Discontinued(R eorder) tirzepatide (Mounjaro) 7.5 mg/0.5 mL pen injector injectionIndicati ons:type 2 diabetes mellitus Inject 0.5 mL (7.5 mg total) under the skin every 7 days E11.65 6 mL 3 05/21/ 025 2024 Discontinued(T herapy completed) tirzepatide (Mounjaro) 10 mg/0.5 mL pen injector injectionIndicati ons:type 2 diabetes mellitus Inject 0.5 mL (10 mg total) under the skin every 7 days E11.65 6 mL 4 025 2024 Discontinued(R eorder) insulin regular (HumuLIN R, NovoLIN R) 100 unit/mL vial for injectionIndicati ons:Type 2 diabetes mellitus with hyperglycemia, with long-term current use of insulin ([facility]) Inject 45 Units under the skin 2 (two) times a day before breakfast and lunch . Use novolin insulin as per insurance formulary. 1:50 Correctional Scale 0-150=0uts, 151-199=1uts, 200-249=2uts, 250-299=3uts, 300-349=4uts 350- 399=5uts, 400-449=6uts, 450-499 =7uts, >500= take 8 units Call the office the next morning for dose changes. 90 mL 4 025 2024 Discontinued(R eorder) Dexcom G7 Sensor deviceIndications :Type 2 diabetes mellitus with hyperglycemia, with long-term current use of insulin ([facility]) 1 Device continuously . Change every 10 days. E11.65 10 each 3 025 2024 Discontinued(R eorder) Dexcom G7 Sensor deviceIndications :Type 2 diabetes mellitus with hyperglycemia, with long-term current use of insulin ([facility]) 1 Device continuously . Change every 10 days. E11.65 10 each 3 025 2024 Discontinued insulin regular (HumuLIN R, NovoLIN R) 100 unit/mL vial for injectionIndicati ons:Type 2 diabetes mellitus with hyperglycemia, with long-term current use of insulin ([facility]) Inject 45 Units under the skin 2 (two) times a day before breakfast and lunch . Use novolin insulin as per insurance formulary. 1:50 Correctional Scale 0-150=0uts, 151-199=1uts, 200-249=2uts, 250-299=3uts, 300-349=4uts 350- 399=5uts, 400-449=6uts, 450-499 =7uts, >500= take 8 units Call the office the next morning for dose changes. 90 mL 4 025 2024 Discontinued(R eorder) tirzepatide (Mounjaro) 10 mg/0.5 mL pen injector injectionIndicati ons:type 2 diabetes mellitus Inject 0.5 mL (10 mg total) under the skin every 7 days E11.65 6 mL 4 025 2024 Discontinued(R eorder) blood-glucose sensor (Dexcom G7 Sensor) deviceIndications :Type 2 diabetes mellitus with hyperglycemia, with long-term current use of insulin ([facility]CC) Use to continuously monitor glucose, change every 10 days. E11.65 9 each 3 025 2024 Discontinued(R eorder) insulin regular (HumuLIN R, NovoLIN R) 100 unit/mL vial for injectionIndicati ons:Type 2 diabetes mellitus with hyperglycemia, with long-term current use of insulin ([facility]CC) Inject 45 Units under the skin 2 (two) times a day before breakfast and lunch . Use novolin insulin as per insurance formulary. 1:50 Correctional Scale 0-150=0uts, 151-199=1uts, 200-249=2uts, 250-299=3uts, 300-349=4uts 350- 399=5uts, 400-449=6uts, 450-499 =7uts, >500= take 8 units Call the office the next morning for dose changes. 90 mL 4 025 2024 Discontinued(R eorder) insulin regular (HumuLIN R, NovoLIN R) 100 unit/mL vial for injectionIndicati ons:Type 2 diabetes mellitus with hyperglycemia, with long-term current use of insulin ([facility]) Inject 45 Units under the skin 2 (two) times a day before breakfast and lunch . Use novolin insulin as per insurance formulary. 1:50 Correctional Scale 0-150=0uts, 151-199=1uts, 200-249=2uts, 250-299=3uts, 300-349=4uts 350- 399=5uts, 400-449=6uts, 450-499 =7uts, >500= take 8 units Call the office the next morning for dose changes. TDD: 115 units 90 mL 4 025 2024 Discontinued(R kassandra) Hospital, Clinic, or Other Facility Administered Medication Ordered Dose Route Frequency Start Date End Date Status triamcinolone (KENALOG) 40 mg/mL injection 20 mgIndications:Pain 20 mg OTHER Once 07/21/2025 07/22/2025 Ended BUPivacaine HCl (MARCAINE) 0.5 % (5 mg/mL) injection 2.5 mgIndications:Pain 2.5 mg Periph Nerve Once 07/21/2025 07/22/2025 Ende d Active Problems Problem Noted Date Diagnosed Date Coronary atherosclerosis 12/08/2024 Dexcom 7 continuous glucose monitoring device Assessment & Plan (06/25/2025 6:19 PM CDT): Continuous glucose monitor (cgm) applied from 06/12/2025 to 06/25/2025 This device was placed for monitor and treatment of blood sugar. Interpretation of data- average glucose 273. 4% time in range. 0 hypoglycemia. 96% hyperglycemia. Assessment & Plan (03/25/2025 4:42 PM CDT): Continuous glucose monitor (cgm) applied from 03/12/2025 to 03/25/2025 This device was placed for monitor and treatment of blood sugar. Interpretation of data- average glucose 252. 19% time in range. 0 hypoglycemia. 89% hyperglycemia. Assessment & Plan (12/24/2024 2:27 PM CDT): Continuous glucose monitor (cgm) applied from 12/11/2024 to 12/24/2024 This device was placed for monitor and treatment of blood sugar. Interpretation of data- average glucose 250. 21% time in range. 0 hypoglycemia. 79% hyperglycemia. Assessment & Plan (09/18/2024 3:54 PM GLASSWARE DEFECT REPAIRER): Continuous glucose monitor (cgm) applied from 09/05/2024 to 09/18/2024 This device was placed for monitor and treatment of blood sugar. Interpretation of data- average glucose 176. 56% time in range. 0 hypoglycemia. 44% hyperglycemia. Class 1 obesity due to exces s calories with serious comorbidity and body mass index (BMI) of 30.0 to 30.9 in adult 09/25/2023 Assessment & Plan (09/18/2024 3:50 PM GLASSWARE DEFECT REPAIRER): This is a chronic condition which continues 4 lbs. Weight loss since last office visit Stopped Ozempic Encouraged healthy eating which includes a low carb diet. Avoiding processed foods, sweets and fried foods. Encouraged 30 minutes of walking at least 5 days per week Discussed that exercise can be broken down into small sessions- for example 2- 15 minutes sessions or 3- 10 minutes sessions. Assessment & Plan (04/10/2024 4:19 PM CDT): This is a chronic condition which continues 2 lbs. Weight gain since last office visit Encouraged healthy eating which includes a low carb diet. Avoiding processed foods, sweets and fried foods. Encouraged 30 minutes of walking at least 5 days per week Discussed that exercise can be broken down into small sessions- for example 2- 15 minutes sessions or 3- 10 minutes sessions. Assessment & Plan (12/26/2023 3:39 PM CDT): This is a chronic condition which continues Seven lbs. Weight lost since last office visit Encouraged healthy eating which includes a low carb diet. Avoiding processed foods, sweets and fried foods. Encouraged 30 minutes of walking at least 5 days per week Discussed that exercise can be broken down into small sessions- for example 2- 15 minutes sessions or 3- 10 minutes sessions. Assessment & Plan (09/25/2023 5:21 PM GLASSWARE DEFECT REPAIRER): This is a chronic condition which is improving 9 lb weight loss since last office visit Encourage continue healthy eating and exercise Ascending aorta dilatation 11/07/2021 Diabetes mellitus, type 2 09/12/2021 Dyspnea on exertion 09/12/2021 Obstructive sleep apnea (adult) (pediatric) 09/03 Syncope 09/12/2021 Pacemaker 07/14/2020 Valvular heart disease 04/16/2020 Overview (04/16/2020): Mild MR/TR on echo 10 December 2019. Normal LVEF. Assessment & Plan (04/16/2020 1:13 PM CDT): On the small chance that he could have COVID -19 cardiomyopathy, I will get an echocardiogram now. Sick sinus syndrome 12/05/2019 Overview (12/05/2019): Status post Biotronik Eluna 8 DRT in August 2019. Assessment & Plan (04/16/2020 1:13 PM CDT): We discussed today's pacemaker rep check. All numbers good. Had a brief episode of nonsustained V-tach lasting about 6 seconds last month. Had another brief episode of atrial fibrillation lasting about 16 seconds last month. I am concerned about COVID-19 cardiomyopathy so I will get an echocardiogram now. We discussed full-dose oral anticoagulation with Garrick Vasc score 2. Will wait and check the pacemaker again at Dr. Tripp's visit in a few weeks. BMP okay recently. Assessment & Plan (12/05/2019 8:52 AM CDT): Pacemaker rep check today showed excellent numbers with no evidence of lead perforation. No cardiac dysrhythmia. Site looks fine. He should have rep. check yearly with remote followups every 3 months. Angina pectoris 12/05/2019 Overview (12/05/2019): Normal coronaries by cardiac catheterization August 2019 at [facility] by Dr. Tripp. Assessment & Plan (04/16/2020 1:11 PM CDT): Having some chest pressure with exertion with some shortness of breath. He just tested positive for COVID-19 about a month ago. I recommended that he sees his primary care doctor as soon as possible for repeat chest x-ray or a CT scan the chest. Assessment & Plan (12/05/2019 8:54 AM CDT): I wonder if exertional symptom could be pulmonary in etiology as he does have mild emphysema and some asthma. He has also gained some weight and he has not been exercising. I advised him to follow up with nurse practitioner and perhaps he needs an office visit with a aerospace stress engineer. He will also tell us what type of metoprolol he is taking. No changes in medications at this time. Anxiety and depression 10/02/2019 Transient complete heart block 08/21/2019 Cervical disc disorder with radiculopathy of mid-cervical region 04/17/2019 Cervical spondylosis with radiculopathy 03/21/20 19 Insomnia 12/23/2016 Hyperlipidemia associated with type 2 diabetes daniel radha 05/16/2011 Overview (12/05/2019): LDL of 44 mg/dL on 11 September 2019. Triglyceride of 564 mg/dL on 02 December 2019. No direct LDL done. Assessment & Plan (09/18/2024 3:50 PM GLASSWARE DEFECT REPAIRER): This is a chronic condition which is at goal . Goal is LDL less than 70 Continue fenofibrate, rosuvastatin. Continued elevation of triglycerides Encouraged to eat healthy, include fresh fruits and vegetables daily and avoid eating fried foods more than once per week. Assessment & Plan (04/10/2024 4:18 PM CDT): This is a chronic condition which is at goal . Goal is LDL less than 70 Continue rosuvastatin, fenofibrate Encouraged to eat healthy, include fresh fruits and vegetables daily and avoid eating fried foods more than once per week. Encouraged to take medications as prescribed. Assessment & Plan (12/26/2023 3:38 PM CDT): This is a chronic condition which is at goal . Goal is LDL less than 70 Continue rosuvastatin, fenofibrate. Triglycerides decrease to 300 improving Encouraged to eat healthy, include fresh fruits and vegetables daily and avoid eating fried foods more than once per week. Encouraged to take medications as prescribed. Assessment & Plan (09/25/2023 5:20 PM GLASSWARE DEFECT REPAIRER): This is a chronic condition which is not at goal of LDL less than 70. Triglycerides remain elevated Continue rosuvastatin, fenofibrate Encouraged to eat healthy, include fresh fruits and vegetables daily and avoid eating fried foods more than once per week. Encouraged to take medications as prescribed. Assessment & Plan (05/15/2023 2:40 PM CDT): This is a chronic condition which is not at goal of LDL less than 70 Continue atorvastatin, fenofibrate. Encouraged to eat healthy, include fresh fruits and vegetables daily and avoid eating fried foods more than once per week. Encouraged to take medications as prescribed. Latest Reference Range & Units 01/25/23 00:00 SCRIBED Cholesterol, Total 0 - 200 142 (E) SCRIBED HDL 0 - 40 22.4 (E) SCRIBED LDL 0 - 0 N/A (E) SCRIBED Triglycerides 0 - 150 686 ! (E) !: Data is abnormal (E): External lab result Assessment & Plan (02/12/2023 5:17 PM CDT): This is a chronic condition which is at goal of LDL less than 70 Continue atorvastatin and fenofibrate Encouraged to eat healthy, include fresh fruits and vegetables daily and avoid eating fried foods more than once per week. Encouraged to take medications as prescribed. Triglycerides remain elevated at 686 Assessment & Plan (11/01/2022 4:59 PM GLASSWARE DEFECT REPAIRER): This is a chronic condition which is Unknown for LDL, Triglycerides-597. Personally reviewed lipid panel from care everywhere. Encouraged to eat healthy, include fresh fruits and vegetables daily and avoid eating fried foods more than once per week. Please take medications as prescribed. Continue atorvastatin Assessment & Plan (08/01/2022 4:19 PM GLASSWARE DEFECT REPAIRER): This is a chronic condition which is Unknown for LDL, Triglycerides-597. Personally reviewed lipid panel from care everywhere. Encouraged to eat healthy, include fresh fruits and vegetables daily and avoid eating fried foods more than once per week. Please take medications as prescribed. Continue atorvastatin Assessment & Plan (04/27/2022 4:05 PM CDT): This is a chronic condition which is at goal for LDL, but not triglycerides. LDL Goal is less than 70. Personally reviewed lipid panel. Cholesterol-171, HDL-23, LDL-na, trigs-662 per care everywhere. Triglycerides will improve with improved blood sugars. Encouraged to eat healthy, include fresh fruits and vegetables daily and avoid eating fried foods more than once per week. Please take medications as prescribed. Assessment & Plan (01/18/2022 4:25 PM CDT): This is a chronic condition which is at goal for LDL, but not triglycerides. LDL Goal is less than 70. Personally reviewed lipid panel. Cholesterol-171, HDL-23, LDL-na, trigs-662 per care everywhere. Triglycerides will improve with improved blood sugars. Encouraged to eat healthy, include fresh fruits and vegetables daily and avoid eating fried foods more than once per week. Please take medications as prescribed. Assessment & Plan (10/18/2021 7:23 PM GLASSWARE DEFECT REPAIRER): This is a chronic condition which is at goal for LDL, but not triglycerides. LDL Goal is less than 70. Personally reviewed lipid panel. Cholesterol-171, HDL-23, LDL-na, trigs-662 per care everywhere. Triglycerides will improve with improved blood sugars. Encouraged to eat healthy, include fresh fruits and vegetables daily and avoid eating fried foods more than once per week. Please take medications as prescribed. Assessment & Plan (07/18/2021 3:58 PM GLASSWARE DEFECT REPAIRER): This is a chronic condition which is at goal for LDL, but not triglycerides. LDL Goal is less than 70. Personally reviewed lipid panel. Cholesterol-171, HDL-23, LDL-na, trigs-662 per care everywhere. Triglycerides will improve with improved blood sugars. Encouraged to eat healthy, include fresh fruits and vegetables daily and avoid eating fried foods more than once per week. Please take medications as prescribed. Assessment & Plan (04/14/2021 12:25 PM CDT): This is a chronic condition which is uncontrolled not at goal. Goal is less than 70. Personally reviewed lipid panel. (10/30/20) Cholesterol-155, HDL-27, LDL-na, trigs-579 per poc testing. Encouraged to get lipid panel at outpt. Lab. Encouraged to eat healthy, include fresh fruits and vegetables daily and avoid eating fried foods more than once per week. Please take medications as prescribed. Assessment & Plan (01/11/2021 3:19 PM CDT): This is a chronic condition which is uncontrolled not at goal. Goal is less than 70. Personally reviewed lipid panel. (10/30/20) Cholesterol-155, HDL-27, LDL-na, trigs-579 per poc testing. Encouraged to get lipid panel at outpt. Lab. Encouraged to eat healthy, include fresh fruits and vegetables daily and avoid eating fried foods more than once per week. Please take medications as prescribed. Assessment & Plan (10/13/2020 5:44 PM GLASSWARE DEFECT REPAIRER): This is a chronic condition which is uncontrolled not at goal. Goal is less than 70. Personally reviewed lipid panel. Cholesterol-184, HDL-na, LDL-na, trigs-680 per poc testing. Repeat lipid panel at outpt. Lab. Encouraged to eat healthy, include fresh fruits and vegetables daily and avoid eating fried foods more than once per week. Please take medications as prescribed. Discuss potential referral to lipid specialist depending lipid panel results. Assessment & Plan (12/05/2019 8:53 AM CDT): No problems with low-dose Lipitor and Lopid. Follow-up with nurse practitioner on this issue. Hypertension associated with type 2 diabetes pramod litus 05/16/2011 Assessment & Plan (09/18/2024 3:50 PM GLASSWARE DEFECT REPAIRER): This is a chronic condition which is at goal. Goal is less than 140/90 Continue amlodipine, hydralazine, hydrochlorothiazide, losartan Encouraged to monitor weight and B/P at home. Assessment & Plan (04/10/2024 4:18 PM CDT): This is a chronic condition which is at goal. Goal is less than 140/90 Personally reviewed labs. Continue losartan, amlodipine, metoprolol, hydralazine, hydrochlorothiazide Encouraged to monitor weight and B/P at home. Encouraged to void caffeine and excessive alcohol consumption as this will elevate B/P Encouraged to take medications as prescribed. Assessment & Plan (12/26/2023 3:37 PM CDT): This is a chronic condition which is at goal. Goal is less than 140/90 Personally reviewed labs. Continue amlodipine, hydralazine, HCTZ, losartan, metoprolol Encouraged to monitor weight and B/P at home Encouraged to take medications as prescribed. Assessment & Plan (09/25/2023 5:20 PM GLASSWARE DEFECT REPAIRER): This is a chronic condition which is at goal of less than 140/90 Personally reviewed labs. Continue losartan, amlodipine, hydralazine Encouraged to monitor weight and B/P at home Encouraged to take medications as prescribed. Assessment & Plan (05/15/2023 2:41 PM CDT): This is a chronic condition which is at goal of less than 140/90 Personally reviewed labs. Continue amlodipine, hydralazine, HCTZ, losartan, metoprolol Encouraged to monitor weight and B/P at home Encouraged to take medications as prescribed. Assessment & Plan (11/01/2022 5:02 PM GLASSWARE DEFECT REPAIRER): This is a chronic condition which is at goal of less than 140/90. Personally reviewed labs. Continue B/P today- at goal of less than 140/90 Continue losartan, hydralazine, Hctz, metoprolol and amlodipine. Encouraged to void caffeine and excessive alcohol consumption as this will elevate B/P Encouraged to monitor weight and B/P at home Explained correct way to take blood pressure. - After 5 minutes of sitting calmly with arm supported. Encouraged to take medications as prescribed. Assessment & Plan (08/01/2022 4:27 PM GLASSWARE DEFECT REPAIRER): This is a chronic condition which is at goal of less than 140/90 after 5 minutes of rest Personally reviewed labs. Continue B/P today- at goal of less than 140/90 after 5 minutes of rest. Continue losartan, hydralazine, Hctz, metoprolol. Encouraged to void caffeine and excessive alcohol consumption as this will elevate B/P Encouraged to monitor weight and B/P at home Explained correct way to take blood pressure. - After 5 minutes of sitting calmly with arm supported. Encouraged to take medications as prescribed. GERD (gastroesophageal reflux disease) 1 Overview (04/17/2019): Hx of stenosis and dilated 10 years ago Hx of stenosis and dilated 10 years ago Family hx of colon cancer 05/16/2011 Overview (04/17/2019): Colonoscopy normal 2012, repeat Jan, 2018. Dr. Lipscomb Colonoscopy normal 2012, repeat Jan, 2018. Dr. Lipscomb Type 2 diabetes mellitus wit h hyperglycemia, with long-term current use of insulin 05/16/2011 Assessment & Plan (09/18/2024 3:48 PM GLASSWARE DEFECT REPAIRER): This is a chronic condition which is at goal with weight loss . Goal is less than 7%. Personally reviewed most recent A1c - Lab Results Component Value Date HGBA1C 6.4 09/18/2024 Personally reviewed POC blood sugar- at goal of 80-180 Lab Results Component Value Date POCGLU 114 09/18/2024 Medication- continue Novolin N Relion 45units 2 times daily, Novolin R Relion 45 units twice a day. He states he take his insulin based on his blood sugar. Correctional factor 1:10. >140 up to 200 units/day. Metformin 1000mg twice a day. continue Jardiance 25 mg daily. Monitor blood sugar continuously with dexcom cgm. Encouraged annual eye exam. Monofilament foot exam completed. Protective senses - intact eGFR- 54 Kidney function-normal Urine microalbumin/creatinine ratio - elevated, not at goal. Goal is <30 Continue amlodipine, hydralazine, hydrochlorothiazide, losartan Assessment & Plan (04/10/2024 4:17 PM CDT): This is a chronic condition which is improving but not at goal . Goal is less than 7%. Personally reviewed most recent A1c - Lab Results Component Value Date HGBA1C 7.7 04/10/2024 Personally reviewed POC blood sugar- at goal of 80-180 Lab Results Component Value Date POCGLU 160 04/10/2024 Medication- continue Novolin N Relion 45units 2 times daily, Novolin R Relion 45 units twice a day Correctional factor 1:10. >140 up to 200 units/day. Metformin 1000mg twice a day. continue Jardiance 25 mg daily. Increase ozempic 1mg weekly. Monitor blood sugar continuously with cgm. Encouraged annual eye exam. Monofilament foot exam completed. Protective senses intact Personally reviewed CMP eGFR- 54 Kidney function-abnormal Urine microalbumin/creatinine ratio - not at goal . Goal is <30. Continue losartan, metoprolol propanolol, amlodipine, hydralazine, HCTZ Assessment & Plan (12/26/2023 3:37 PM CDT): This is a chronic condition which is worsening, not at goal . Goal is less than 7%. Personally reviewed most recent A1c - Lab Results Component Value Date HGBA1C 8.4 12/26/2023 Personally reviewed POC blood sugar- at goal of 80-180 Lab Results Component Value Date POCGLU 160 12/26/2023 Medication- continue Novolin N Relion 45units 2 times daily, Novolin R Relion 45 units twice a day Correctional factor 1:10. >140 up to 200 units/day. Metformin 1000mg twice a day. Increase Jardiance 25 mg daily. Has history of pancreatitis approx. 2012. Monitor blood sugar 3 times a day. Has not been wearing his CGM but feels his blood sugars are better when he is on it. Will return to monitoring blood Continuously with cgm. Encouraged annual eye exam. last dilated eye exam was Dr. Kelley Monofilament foot exam completed. Protective senses intact Personally reviewed CMP eGFR- decrease to 49 Kidney function-abnormal Urine microalbumin/creatinine ratio - abnormal. Goal is <30 Continue amlodipine, hydralazine, HCTZ, losartan, metoprolol Assessment & Plan (09/25/2023 5:18 PM GLASSWARE DEFECT REPAIRER): This is a chronic condition which is inadequately controlled, not at goal of less than 7%. Personally reviewed most recent A1c - Lab Results Component Value Date HGBA1C 8.1 09/25/2023 Personally reviewed POC blood sugar- at goal 80-180 Lab Results Component Value Date POCGLU 165 09/25/2023 Medication- continue Novolin N Relion 45units 2 times daily, Novolin R Relion 45 units twice a day Correctional factor 1:10. >140 up to 200 units/day. Metformin 1000mg twice a day. Increase Jardiance 25 mg daily. Has history of pancreatitis approx. 2012. Monitor blood sugar 4times a day. Continuously with sensor. Encouraged annual eye exam. last dilated eye exam was [facility] Monofilament foot exam completed. protective senses intact Personally reviewed CMP eGFR- 59 Kidney function- abnormal Urine microalbumin/creatinine ratio - not at goal <30 not treated with losartan, amlodipine, hydralazine B/P today- at goal of <140/90. continue losartan, amlodipine, hydralazine Personally reviewed lipid panel. Not at Goal of less than 70. Continue fenofibrate, rosuvastatin Assessment & Plan (05/15/2023 4:13 PM CDT): This is a chronic condition which is improving but not at goal of less than 7% with 11lb weight gain. Personally reviewed most recent A1c - Lab Results Component Value Date HGBA1C 8.0 05/15/2023 Personally reviewed POC blood sugar- not at goal 80-180 Lab Results Component Value Date POCGLU 230 05/15/2023 Medication- Continue Novolin N Relion 45units 2 times daily, Novolin R Relion 45 units twice a day Correctional factor 1:10. >140 up to 200 units/day. Metformin 1000mg twice a day. Continue Jardiance 25 mg daily. Has history of pancreatitis approx. 2012. Monitor blood sugar continously with freestyle lisa 3. Encouraged annual eye exam. Monofilament foot exam completed. protective senses intact. Personally reviewed CMP eGFR- >60 Kidney function- normal Urine microalbumin/creatinine ratio - at goal <30 treated with amlodipine, hydralazine, hydrochlorothiazide, losartan, metoprolol B/P today- at goal of <140/90. continue amlodipine, hydralazine, hydrochlorothiazide, losartan, metoprolol Personally reviewed lipid panel. Not at Goal of less than 70. Continue atorvastatin, fenofibrate Assessment & Plan (02/12/2023 5:16 PM CDT): This is a chronic condition which is poorly controlled, worsening not at goal of less than 7%. Personally reviewed most recent A1c - Lab Results Component Value Date HGBA1C 9.2 02/12/2023 Personally reviewed POC blood sugar- at goal 80-180 Lab Results Component Value Date POCGLU 180 02/12/2023 Medication- Continue increase Novolin N Relion 45units 2 times daily, Novolin R Relion 45 units twice a day Correctional factor 1:10. >140 up to 200 units/day. Metformin 1000mg twice a day. Increase Jardiance 25 mg daily. Has history of pancreatitis approx. 2012. discussed his History of pancreatitis- not a candidate for GLP-1 Monitor blood sugar 2x times a day. Encouraged annual eye exam. last dilated eye exam was at [facility] Monofilament foot exam completed. protective senses intact Personally reviewed CMP eGFR- >60 Kidney function- normal Urine microalbumin/creatinine ratio - at goal <30 not treated with amlodipine, hydralazine, HCTZ, losartan, metoprolol B/P today-at goal of <140/90. continue amlodipine, hydralazine, HCTZ, losartan, metoprolol Personally reviewed lipid panel. Not at Goal of less than 70. Continue atorvastatin and fenofibrate Assessment & Plan (11/01/2022 5:02 PM GLASSWARE DEFECT REPAIRER): This is a chronic condition which is at goal of less than 7%. Personally reviewed A1c today-decreased to 6.9% Medication- continue Novolin N Relion 42units 2 times daily, Novolin R Relion 45 units twice a day Correctional factor 1:10. >140 up to 200 units/day. Continue Metformin 1000mg twice a day and Jardiance 25 mg daily. discussed his History of pancreatitis- not a candidate for GLP-1 Monitor blood sugar 2x times a day. He is ready to try the [employer] Lisa 3 sensor. Wants to wait until he has met his deductible for the year. Encouraged annual eye exam. dilated eye exam- appt at [facility] Monofilament foot exam completed, protective senses intact Urine microalbumin/creatinine ratio -at goal of <30 continue losartan. Personally reviewed labs: CMP, GFR- >60 Kidney function- normal B/P today- at goal of less than 140/90 after 5 minutes of rest. Continue losartan, hydralazine, Hctz, metoprolol and amlodipine. Triglycerides-597, LDL unknown Personally reviewed lipid panel from care everywhere. Continue atorvastatin Triglycerides remain elevated will improve with the decrease in blood sugars. Encouraged low fat diet. history of macrovascular disease - pacemaker placement Assessment & Plan (08/01/2022 4:26 PM GLASSWARE DEFECT REPAIRER): This is a chronic condition which is improving but not at goal of less than 7%. Personally reviewed A1c today-decreased to 8% Medication- continue Novolin N Relion 42units 2 times daily, Novolin R Relion 45 units twice a day Correctional factor 1:10. >140 up to 200 units/day. Continue Metformin 1000mg twice a day and Jardiance 25 mg daily. History of pancreatitis- not a candidate for GLP-1 Monitor blood sugar 2x times a day. He is ready to try the [employer] Lisa 3 sensor. Ordered Encouraged annual eye exam. dilated eye exam- appt at [facility] Monofilament foot exam completed, protective senses intact Urine microalbumin/creatinine ratio -at goal of <30 continue losartan. Personally reviewed labs: CMP, GFR- >60 Kidney function- normal B/P today- at goal of less than 140/90 after 5 minutes of rest. Continue losartan, hydralazine, Hctz, metoprolol. Triglycerides-597, LDL unknown Personally reviewed lipid panel from care everywhere. Continue atorvastatin Triglycerides remain elevated will improve with the decrease in blood sugars. Encouraged low fat diet. history of macrovascular disease - pacemaker placement Assessment & Plan (04/27/2022 4:04 PM CDT): This is a chronic condition which is not at goal. Personally reviewed A1c today-increased to 8.6% Not at goal less than 7% Medication- continue Novolin N Relion 42units 2 times daily, Novolin R Relion 45 units twice a day Correctional factor 1:10. >140 up to 200 units/day. Continue Metformin 1000mg twice a day and Jardiance 25 mg daily. History of pancreatitis- not a candidate for GLP-1 Monitor blood sugar 2x times a day. Call blood sugar for insulin adjustment in 10 days. Discusses getting a cgm- Reviewed dexcom,. Lisa 2 and possibly the [employer] InPen and guardian sensor. He feels he can not wear a pump as the pumping would cause a problem at work. Encouraged annual eye exam. dilated eye exam- appt at [facility] Monofilament foot exam completed, protective senses intact Urine microalbumin/creatinine ratio - <30 normal currently losartan, Not at goal <30 Personally reviewed labs: BUN, creatinine, GFR- >60 Kidney function- normal B/P today- 144/70 , currently on losartan, hydralazine, Hctz, losartan. At Goal blood pressure is <140/90 and as close to 120/80 as possible. Personally reviewed per care everywhere LDL - not calculated due to high trigs- 662, chol-171, HDL-23 currently on atorvastatin 10 mg daily and gemfibrozil. LDL at goal of less than 70. Triglycerides remain elevated will improve with the decrease in blood sugars. Encouraged low fat diet. history of macrovascular disease - pacemaker placement Assessment & Plan (01/18/2022 4:24 PM CDT): This is a chronic condition which is at goal. Personally reviewed A1c today-increased to 7.2% Not at goal less than 7% Medication- continue Novolin N Relion 42units 2 times daily, Novolin R Relion 45 units twice a day Correctional factor 1:10. >140 up to 200 units/day. Metformin 1000mg twice a day. Increase Jardiance 25 mg daily. Discussed mixing insulin and delivering one shot. He was not aware. History of pancreatitis- not a candidate for GLP-1 Monitor blood sugar 2x times a day. Call blood sugar for insulin adjustment in 10 days. Encouraged annual eye exam. dilated eye exam- appt at [facility] Monofilament foot exam completed, protective senses intact Urine microalbumin/creatinine ratio - <30 normal currently losartan, Not at goal <30 Personally reviewed labs: BUN- 20, creatinine- 1.07 GFR- >60 Kidney function- normal B/P today- 140/72 , currently on losartan, hydralazine, Hctz, losartan. At Goal blood pressure is <140/90 and as close to 120/80 as possible. Personally reviewed per care everywhere LDL - not calculated due to high trigs- 662, chol-171, HDL-23 currently on atorvastatin 10 mg daily and gemfibrozil. LDL at goal of less than 70. Triglycerides remain elevated will improve with the decrease in blood sugars. Encouraged low fat diet. history of macrovascular disease - pacemaker placement Assessment & Plan (10/18/2021 7:23 PM GLASSWARE DEFECT REPAIRER): This is a chronic condition which is at goal. Personally reviewed A1c today- decreased to 6.8% Not at goal less than 7% Medication- decrease Novolin N Relion 40 units twice daily. Novolin R Relion 40 units twice daily at breakfast and dinner. Correctional factor 1:10. >140 up to 200 units/day. continue Jardiance 10mg po daily. and Metformin 1000mg twice a day. History of pancreatitis- not a candidate for GLP-1 Monitor blood sugar 2x times a day. Call blood sugar for insulin adjustment in 10 days. Encouraged annual eye exam. dilated eye exam- appt at [facility] Monofilament foot exam completed, protective senses intact Urine microalbumin/creatinine ratio - 30-300, abnormal currently losartan, Not at goal <30 Personally reviewed labs: BUN- 20, creatinine- 1.07 GFR- >60 Kidney function- normal B/P today- 146/60 , currently on losartan, hydralazine, Hctz, losartan. At Goal blood pressure is <140/90 and as close to 120/80 as possible. Personally reviewed per care everywhere LDL - not calculated due to high trigs- 662, chol-171, HDL-23 currently on atorvastatin 10 mg daily and gemfibrozil. LDL at goal of less than 70. Triglycerides remain elevated will improve with the decrease in blood sugars. Encouraged low fat diet. history of macrovascular disease - pacemaker placement Assessment & Plan (07/18/2021 3:56 PM GLASSWARE DEFECT REPAIRER): This is a chronic condition which is at goal. Personally reviewed A1c today- decreased to 6.6% Not at goal less than 7% Medication- decrease Novolin N Relion 40 units twice daily. Novolin R Relion 40 units twice daily at breakfast and dinner. Correctional factor 1:10. >140 up to 200 units/day. continue Jardiance 10mg po daily. and Metformin 1000mg twice a day. History of pancreatitis- not a candidate for GLP-1 Monitor blood sugar 2x times a day. Call blood sugar for insulin adjustment in 10 days. Encouraged annual eye exam. dilated eye exam- appt at [facility] Monofilament foot exam completed, protective senses intact Urine microalbumin/creatinine ratio - 30-300, abnormal currently losartan, Not at goal <30 Personally reviewed labs: BUN- 20, creatinine- 1.07 GFR- >60 Kidney function- normal B/P today- 146/60 , currently on losartan, hydralazine, Hctz, losartan. At Goal blood pressure is <140/90 and as close to 120/80 as possible. Personally reviewed per care everywhere LDL - not calculated due to high trigs- 662, chol-171, HDL-23 currently on atorvastatin 10 mg daily and gemfibrozil. LDL at goal of less than 70. Triglycerides remain elevated will improve with the decrease in blood sugars. Encouraged low fat diet. history of macrovascular disease - pacemaker placement Assessment & Plan (04/14/2021 3:52 PM CDT): This is a chronic condition which is at goal. Personally reviewed A1c today- decreased to 6.7% Not at goal less than 7% Medication- decrease Novolin N Relion 38 units 2 times daily Novolin R Relion 40 units for breakfast and dinner. Correctional factor 1:10. >140 up to 200 units/day. Added Jardiance 10mg po daily. Continue Metformin 1000mg twice a day. History of pancreatitis- not a candidate for GLP-1 Monitor blood sugar 2x times a day. Call blood sugar for insulin adjustment in 10 days. Encouraged annual eye exam. dilated eye exam- appt at [facility] Monofilament foot exam completed, protective senses intact Urine microalbumin/creatinine ratio - 30-300, abnormal currently losartan, Not at goal <30 Personally reviewed labs: BUN- 20, creatinine- 1.07 GFR- >60 Kidney function- normal B/P today- 140/72 , currently on losartan, hydralazine, Hctz, losartan. At Goal blood pressure is <140/90 and as close to 132/80 as possible. Personally reviewed (10/30/20) LDL - not calculated due to high trigs-579, chol- 155, HDL-27 currently on atorvastatin 10 mg daily and gemfibrozil. Not at goal of less than 70. Improved from previous levels. Encouraged low fat diet. history of macrovascular disease - pacemaker placement Assessment & Plan (01/11/2021 3:18 PM CDT): This is a chronic condition which is uncontrolled hyperglycemia worsening and reported hypoglycemia about every 2 hours. not at goal. Hypoglycemia related to peaks in insulin of NPH and Regular insulin while at work. Personally reviewed A1c today- 8.1 Not at goal less than 7% Medication- increase Novolin N Relion 45 units 2 times daily Novolin R Relion 45 units for breakfast and 45 units at dinner. Correctional factor 1:10. >140 up to 200 units/day. Reports missing lunch doses sometimes when at work. History of pancreatitis- not a candidate for GLP-1 Continue Metformin 1000mg twice a day. Discussed changing insulin to long acting and fast acting insulin, he wants to use up what he has first. Discussed the peaks of the insulin he is using. Discussed insulin pump therapy- is interested but not at this time. He is concerned about being dirty and sweaty at work. Discussed adding a continuous glucose monitor, He is interested but not at this time. He is concerned about being dirty and sweaty at work. Monitor blood sugar 2x times a day. Call last 3 days of blood sugar for insulin adjustment. Encouraged annual eye exam. dilated eye exam- appt at [facility] Monofilament foot exam completed, protective senses intact Urine microalbumin/creatinine ratio - 30-300, abnormal currently losartan, Not at goal <30 Personally reviewed labs: BUN- 20, creatinine- 0.82 GFR- >60 Kidney function- normal B/P today- 134/66 , currently on losartan, hydralazine, Hctz, losartan. At Goal blood pressure is <140/90 and as close to 132/80 as possible. Personally reviewed (10/30/20) LDL - not calculated due to high trigs-579, chol- 155, HDL-27 currently on atorvastatin 10 mg daily and gemfibrozil. Not at goal of less than 70. Improved from previous levels. Encouraged low fat diet. history of macrovascular disease - pacemaker placement Reports eating [employer] frequently Discussed healthier options of fruit and cheese Assessment & Plan (10/13/2020 5:47 PM GLASSWARE DEFECT REPAIRER): This is a chronic condition which is uncontrolled hyperglycemia, and reported hypoglycemia not at goal. Personally reviewed A1c today- 7.9 Not at goal less than 7% Personally reviewed blood sugar 213, Not at goal, goal 80-180. Post pranial hyperglycemia Medication- Continue Novolin N Relion 42 units 2 times daily Novolin R Relion 45 units for breakfast, 30 units at lunch, 45 units at dinner. Correctional factor 1:10. >140 up to 200 units/day. Reports missing lunch doses sometimes when at work. History of pancreatitis- not a candidate for GLP-1 Metformin 1000mg twice a day. Monitor blood sugar 4x times a day. Call last 3 days of blood sugar for insulin adjustment. Encouraged annual eye exam. dilated eye exam- appt at [facility] Monofilament foot exam completed, protective senses intact Urine microalbumin/creatinine ratio - 30-300, abnormal currently losartan, Not at goal <30 Personally reviewed labs: BUN- 20, creatinine- 0.82 GFR- >60 Kidney function- normal B/P today- 134/66 , currently on losartan, hydralazine, Hctz, losartan. At Goal blood pressure is <140/90 and as close to 120/80 as possible. Personally reviewed LDL - not calculated due to high trigs-680, currently on atorvastatin 10 mg daily and gemfibrozil. Not at goal of less than 70 history of macrovascular disease - pacemaker placement Encounters Date Type Department Care Team Description 07/22/2025 Telephone [facility] Diabetes Endocrine Care at [address] [phone] Alejandra Vásquez NP 07/21/2025 10:00 AM GLASSWARE DEFECT REPAIRER Office Visit [facility] Medicine Surgery [facility] 6th [place] [address] [place] [id number] Agueda Goodman MD PhD Pain (Primary Dx); Trigger middle finger of left hand 07/21/2025 9:54 AM GLASSWARE DEFECT REPAIRER - 07/21/2025 11:59 PM GLASSWARE DEFECT REPAIRER Hospital Encounter [facility] [address] [place] [id number] Agueda Goodman MD PhD Pain Discharge Disposition: Discharge to home or self care 07/13/2025 Telephone [facility] Diabetes Endocrine Care at [address] [place] [phone] Alejandra Vásquez NP 07/08/2025 Telephone [facility] Surgery [facility] [address]th [place] [address] [place] [phone] Tomeka Johnson 06/25/2025 2:30 PM CDT Office Visit [facility] Diabetes Endocrine Care at [address] [place] [phone] Alejandra Vásquez, PORTABLE GRINDING MACHINE OPERATOR Type 2 diabetes mellitus with hyperglycemia, with long-term current use of insulin (HCC) (Primary Dx); Hypertension associated with type 2 diabetes mellitus (HCC); Hyperlipidemia associated with type 2 diabetes mellitus (HCC); Dexcom 7 continuous glucose monitoring device; Class 1 obesity due to excess calories with serious comorbidity and body mass index (BMI) of 30.0 to 30.9 in adult from Last 3 Months Immunizations Immunization Administration Dates Next Due Influenza, Quadrivalent, Marii l Culture-based MDCK, Preservative Free, Antibiotic Free, Intramuscular 06/05/2019,06/04/2019 Influenza, Quadrivalent, Spl it, Preservative Free, Intramuscular 06/21/2023,05/30/2022,11/09/2021,06/28 Influenza, Trivalent, IM (MDV) 9,05/04/2018,07/18/2017,05/04,06/03/2015,05/23/2014,07/04/2013 ,07/08/2012,07/04/2011 Influenza, Trivalent, Preser vative Free, Intramuscular 07/03/2024,05/04/2018 Pneumococcal Conjugate, Unspecified 07/08/2007 Pneumococcal, Unspecified 07/08/2007 Tdap 07/03/2024,02/08/2018,06/26/2016 Surgical History Surgery Date Site/Laterality Comments TONSILLECTOMY ROTATOR CUFF REPAIR Medical History Medical History Date Comments Hypertension Diabetes mellitus Gastric reflux Hiatal hernia Fatigue Blurred vision HTN (hypertension) Diabetes Weakness Chronic pain disorder Neck pain Sleep apnea Family History Medical History Relation Name Comments Cancer Other Diabetes Other Heart disease Other Hypertension Other lung problems Other Relation Name Status Comments Other Social History Tobacco Use Types Packs/Day Years Used Date Smoking Tobacco: Never Smokeless Tobacco: Never Tobacco Cessation:Counseling Given: Not Answered Alcohol Use Standard Drinks/Week Comments Yes 0 (1 standard drink = 0.6 oz pur e alcohol) occasionally PHQ-2 Answer Date Recorded PHQ-2 Total Score (If total score is 3 or more points, staff should administer the PHQ-9) 0 10/13/2020 Sex and Gender Information Value Date Recorded Sex Assigned at Not on file Legal Sex Male 4:37 PM GLASSWARE DEFECT REPAIRER Gender Identity Not on file Sexual Orientation Not on file Last Filed Vital Signs Vital Sign Reading Time Taken Comments Blood Pressure 122/60 06/25/2025 2:16 PM CDT Pulse 60 07/14/2020 1:36 PM GLASSWARE DEFECT REPAIRER Temperature 36.5 C (97.7 F) 07/14/2020 1:36 PM GLASSWARE DEFECT REPAIRER Respiratory Rate 18 07/14/2020 1:36 PM GLASSWARE DEFECT REPAIRER Oxygen Saturation 97% 04/21/2019 11: 28 AM CDT Inhaled Oxygen Concentration - - Weight 109.5 kg (241 lb 6.4 oz) 06/25/2025 2:16 PM CDT Height 188 cm (6' 2) 06/25/2025 2:16 PM CDT Body Mass Index 30.99 06/25/2025 2:16 PM CDT Plan of Treatment Health Maintenance Due Date Last Done Comments Colon Cancer Screening-Colonoscopy 1960 Hepatitis C Screening 1960 Prostate Cancer Screening-PSA 1960 Hepatitis B Screening 1978 Regular Well Visit/Exam 18-64 1978 Pneumococcal vaccine <65 (2 of 2 - PPSV23, PCV20, or PCV21) 09/02/2007 07/08/2007, 07/08/2007 Zoster Vaccine (1 of 2) 2010 Depression Screening 10/13/2021 10/13/2020 Dilated Eye Exam 10/17/2024 10/17/2023, , 02/06/2023, Additional history exists Covid-19 Vaccine (3 - 2024-2 6 season) 2025 11/23/2020, 11/02/2020 Influenza Vaccine (#1) 2025 , 06/21/2023, 05/30/2022, Additional history exists Foot Exam 09/18/2025 09/18/2024, 08/0 04/2024, 12/26/2023, Additional history exists Hemoglobin A1C 12/24/2025 06/25/2025, 072 11/2024, 12/24/2024, Additional history exists Albumin Creatinine Ratio, Urine 12/31/2025 12/31/2024, 12/31/2024, 04/02/2024, Additional history exists eGFR 12/31/2025 12/31/2024, 12/04, 12/31/2024, Additional history exists Lipid Panel 07/16/2026 07/16/2025, 12/04, 12/31/2024, Additional history exists DTaP/Tdap/Td Vaccine (4 - Td or Tdap) 07/03/2034 07/03/2024, 02/08/2018, 06/26/2016 Goals Goal Patient Goal Type Associated Problems Recent Progress Patient-Stated? Author CCM Chronic Pain Care Plan Chronic Care Management Alejandra Case, RN Note: Problem: Chronic Pain Goals: 1. Minimize further functional decline 2. Maximize quality of life 3. Control pain Strategies: - Activity/exercise program recommendation - Conservative stepwise pain medicine strategy with multi-disciplinary approach - Recommend healthy lifestyle strategies and compensatory methods as needed Reduce the likelihood of falling Lifestyle Briana Blair RN Note: Below are four things you can do to prevent falls: 1. Begin an exercise program to improve your leg strength & balance 2. Ask your doctor or pharmacist to review your medicines 3. Get annual eye check-ups & update your eyeglasses 4. Make your home safer by: Removing clutter & tripping hazards Putting railings on all stairs & adding grab bars in the bathroom Having good lighting, especially on stairs Contact your local community or senior center for information on exercise, fall prevention programs, or options for improving home safety. Procedures Procedure Name Priority Date/Time Associated Diagnosis Comments XR HAND BILATERAL 3 OR MORE VIEWS OF EACH Schedule Routine, Read Routine (OP Routine) 07/21/2025 10:17 AM GLASSWARE DEFECT REPAIRER Pain POCT HEMOGLOBIN A1C Routine 06/25/2025 2 :19 PM CDT Type 2 diabetes mellitus with hyperglycemia, with long-term current use of insulin (HCC) POCT GLUCOSE Routine 06/25/2025 2:17 PM CDT Type 2 diabetes mellitus with hyperglycemia, with long-term current use of insulin (HCC) COMPREHENSIVE METABOLIC PANEL Routine 12/31/2024 LIPID PANEL Routine 12/31/2024 ALBUMIN CREATININE RATIO, URINE Routine 12/31/2024 DIABETIC EYE EXAM Routine 10/17/2023 from Last 3 Months or Most Recently Relevant to Health Maintenance Results * XR Hand Bilateral 3 or More Views of Each (07/21/2025 10:17 AM GLASSWARE DEFECT REPAIRER) Anatomical Region Laterality Modality Upper Extremities, Hand Computed Radiography 07/21/2025 11:5 9 AM GLASSWARE DEFECT REPAIRER Impressions 07/21/2025 1:03 PM GLASSWARE DEFECT REPAIRER IMPRESSION: 1. Mild bilateral base of thumb osteoarthritis. 2. Mild soft tissue prominence of the left thenar eminence. Dictated by: Bruno Sandoval M.D. The radiology attending physician has personally reviewed this study, and had reviewed and/or edited this written report and agrees with it. Electronically signed by: Rbuen Mathis MD Narrative 07/21/2025 1:03 PM GLASSWARE DEFECT REPAIRER EXAMINATION: XR HAND BILATERAL 3 OR MORE VIEWS OF EACH HISTORY: Pain COMPARISON: None. FINDINGS: There are 4 views of both hands are submitted for interpretation. Mild soft tissue swelling in the left thenar eminence. There is no acute fracture or dislocation. Mild bilateral base of thumb osteoarthritis. No radiopaque foreign bodies. No subcutaneous gas. Bilateral wrist vascular calcifications. Procedure Note Ruben Mathis MD - 07/21/2025 EXAMINATION: XR HAND BILATERAL 3 OR MORE VIEWS OF EACH HISTORY: Pain COMPARISON: None. FINDINGS: There are 4 views of both hands are submitted for interpretation. Mild soft tissue swelling in the left thenar eminence. There is no acute fracture or dislocation. Mild bilateral base of thumb osteoarthritis. No radiopaque foreign bodies. No subcutaneous gas. Bilateral wrist vascular calcifications. IMPRESSION: IMPRESSION: 1. Mild bilateral base of thumb osteoarthritis. 2. Mild soft tissue prominence of the left thenar eminence. Dictated by: Bruno Sandoval M.D. The radiology attending physician has personally reviewed this study, and had reviewed and/or edited this written report and agrees with it. Electronically signed by: Ruben Mathis MD Agueda Goodman MD PhD IMG XR PROCEDURES Final Result * (ABNORMAL) POCT hemoglobin A1c (06/25/2025 2:19 PM CDT) [facility] Hemoglobin A1C, POC 7.4(A) 4.0 - 5.6 % Blood 06/25/2025 2:19 PM CDT Alejandra Vásquez NP POINT OF CARE TEST ORDERABLES F inal Result * POCT glucose (06/25/2025 2:17 PM CDT) [facility] Glucose Blood, POC 222 Normal Fasting 70 - 100, Random <200 mg/dL Blood 06/25/2025 2:17 PM CDT Alejandra Vásquez NP POINT OF CARE TEST ORDERABLES F inal Result * Albumin Creatinine Ratio, Urine (12/31/2024) Pathologist [facility] SCRIBED Creatinine, Urine 97.7 - - - EXTERNAL LAB SCRIBED Microalbumin 41.18 - - - EXTERNAL LAB SCRIBED Microalb/Creat Ratio 421 EXTERNAL LAB Urine 12/31/2024 Historical Provider MD LAB URINE ORDERABLES Dayan l Result EXTERNAL LAB * (ABNORMAL) Lipid panel (12/31/2024) SCRIBED Cholesterol, Total 98 30 - 199 mg/dL EXTERNAL LAB SCRIBED Triglycerides 149 <=149 mg/dL EXTERNAL LAB SCRIBED HDL 25(A) >=40 mg/dL EXTERNAL LAB SCRIBED LDL 43 <=129 mg/dL EXTERNAL LAB Scribed Non-HDL Cholesterol 73 NONE mg/dL EXTERNAL LAB SCRIBED Total Cholesterol/HDL Ratio 0 NONE EXTERNAL LAB Blood 12/31/2024 Historical Provider LAB BLOOD ORDERABLES Dayan l Result EXTERNAL LAB * Comprehensive metabolic panel (12/31/2024) Pathologist [facility] SCRIBED Sodium 135 - - - mmol/L EXTERNAL LAB SCRIBED Potassium 4.3 - - - mmol/L EXTERNAL LAB SCRIBED Chloride 106 - - - mmol/L EXTERNAL LAB SCRIBED Carbon Dioxide 24 - - - mmol/L EXTERNAL LAB SCRIBED Anion Gap 9.3 - - - mmol/L EXTERNAL LAB SCRIBED Urea Nitrogen (BUN) 11 - - - mg/dl EXTERNAL LAB SCRIBED Creatinine 0.87 - - - mg/dl EXTERNAL LAB SCRIBED Glucose 240 - - - mg/dl EXTERNAL LAB SCRIBED Calcium 8.7 - - - mg/dl EXTERNAL LAB SCRIBED Bilirubin 1.4 - - - mg/dl EXTERNAL LAB SCRIBED Plasma Protein 6.9 - - - g/dl EXTERNAL LAB SCRIBED Albumin 4.2 - - - g/dl EXTERNAL LAB SCRIBED Alkaline Phosphatase 48 - - - Units/L EXTERNAL LAB SCRIBED Alanine Transaminase (ALT) 22 - - - Units/L EXTERNAL LAB SCRIBED Aspartate Transaminase (AST) 26 - - - Units/L EXTERNAL LAB SCRIBED eGFR >60 - - - EXTERNAL LAB SCRIBED eGFR >60 - - - EXTERNAL LAB Blood 12/31/2024 Historical Provider LAB BLOOD ORDERABLES Dayan l Result EXTERNAL LAB * (ABNORMAL) Diabetic Eye Exam (10/17/2023) us Historical Provider HEALTH MAINTENANCE Final Result from Last 3 Months or Most Recently Relevant to Health Maintenance Insurance [facility]/PPO Address: [place] [address] [facility]/[place]O [place] [address] Care Teams Transmission Specialist Relationship Specialty Start Date End Date Kourtney Resendez NP [address] [place] [address] PCP - General Emergency Medicine 03/17/19
--- OUTSIDE RECORDS SUMMARY | 2025-07-24 07:34 | XMS_ITS | Encounter Summary ---
Author Organization [facility] Address [address] [place] [address] Phone Care Team Providers Care Soubrette Name Role Phone Kourtney Resendez APRN, PROJECT CONTROL OFFICER Primary Care P rojoyder Royal Salinas MD Unavailable [phone] Nicholas Mishra MD Unavailable Jany De La Torre APRN, INSTALL TECHNICIAN Unavailable [phone] Tayler Garrett APRN, PROJECT CONTROL OFFICER Unavailable Encounter Details Date Type Department Care Team (Late st Contact Info) Description 07/16/2025 Results Follow-Up [facility] - Primary Care - Faby [address] [place] [address] Kourtney Resendez APRN, PROJECT CONTROL OFFICER [address] [place] [address] CMP (COMPREHENSIVE METABOLIC PANEL), LIPID PANEL, UR MICROALBUMIN/CREATIN INE RATIO RANDOM Social History Tobacco Use Types Packs/Day Years Used Date Smoking Tobacco: Never Smokeless Tobacco: Never Alcohol Use Standard Drinks/Week Comments Yes 0 (1 standard drink = 0.6 oz pur e alcohol) Occasionally 2 drinks [facility] Utilities Answer Date Recorded In the past 12 months has e electric, gas, oil, or water company threatened to shut off services in your home? Patient declined 11/20/2024 Social Connection and Isolation Panel Answer Date Recorded In a typical week, how many times do you talk on the phone with family, friends, or neighbors? Patient declined 11/20/2024 How often do you get togethe r with friends or relatives? Patient declined 11/20/2024 How often do you attend worship or tenriism serv ices? Patient declined 11/20/2024 Do you belong to any clubs o r organizations such as worship groups, unions, fraternal or athletic groups, or [...] Date Recorded Total Score - Questions 1-9 3 04/03 [facility] - Occupational [...] or rent on time? Patient declined 11/21/19 Number of Times Moved in the Last Year Not on fi le 11/20/2024 At any time in the past 12 m [facility], were you homeless or living in a [...] on file documented as of this encounter Functional Status * Question Answer Date of Assessment Author Best Eye Response 4-->(E4) spontaneous 5 10:41 AM Lynne Mena RN Best Verbal Response 5-->(V5) oriented 5 10:41 AM Lynne Mena RN Best Motor Response 6-->(M6) obeys commands 07/04 10:41 AM Lynne Mena RN Rudy Coma Scale Score 15 07/19/2025 10:41 AM Lynne Mena RN * Pain Description Answer Date of Assessment Author constant 07/19/2025 11:28 AM Yunior Alberto RN * Question Answer Date of Assessment Author Pain Management Interventions care clustered 07/19/2025 1:02 PM Yunior Alberto, MARIAM * Dumont Fall Risk Question Answer Date of Assessment Author History of Falling, Immediat e or Within 3 Months 0 07/19/2025 9:47 AM Batsheva Walls RN Secondary Diagnosis 0 07/19/2025 9:47 AM CS T Batsheva Glass, site foreman Aid 0 07/19/2025 9:47 AM Batsheva Watkins RN Intravenous Therapy/Heparin Lock 20 07/19/20 25 9:47 AM Batsheva Walls RN Gait/Transferring 0 07/19/2025 9:47 AM Batsheva Walls RN Mental Status 0 07/19/2025 9:47 AM Batsheva Magdaleno RN Morse Fall Risk Score 20 07/19/2025 9:47 AM Batsheva Walls RN * Question Answer Date of Assessment Author SpO2 96 07/19/2025 1:00 PM Yunior Coffey RN O2 Device None (Room air) 07/19/2025 1:00 PM CUP MACHINE OPERATOR Yunior Amador RN * Question Answer Date of Assessment Author Height 74 07/19/2025 9:46 AM Batsheva Abebe RN Weight 3760 07/19/2025 9:46 AM Batsheva Abebe RN * Question Answer Date of Assessment Author BP 150/70 07/19/2025 1:00 PM Yunior Coffey RN Pulse 77 07/19/2025 1:00 PM Yunior Coffey RN Resp 18 07/19/2025 1:00 PM Yunior Coffey RN * Safety Factors Answer Date of Assessment Author bed in low position;call light in reach 07/19/20 9:47 AM Batsheva Walls RN * Question Answer Date of Assessment Author Temp 96.7 07/19/2025 9:46 AM Batsheva Abebe RN * Pain Description Answer Date of Assessment Author constant 07/19/2025 11:28 AM Yunior Alberto RN documented as of this encounter Mental Status * Question Answer Entry Date Author Best Eye Response 4-->(E4) spontaneous 10:41 AM CUP MACHINE OPERATOR Lynne Israel RN Best Verbal Response 5-->(V5) oriented 10:41 AM Lynne Mena RN Best Motor Response 6-->(M6) obeys commands 07/04 10:41 AM Lynne Mena RN [place] Coma Scale Score 15 07/19/2025 10:41 AM CUP MACHINE OPERATOR Lynne Israel, RN * Pain Description Answer Entry Date Author constant 07/19/2025 11:28 AM CUP MACHINE OPERATOR Yunior Villatoro, RN * Question Answer Entry Date Author Pain Management Interventions care clustered 1:02 PM Yunior Alberto, MARIAM * Question Answer Entry Date Author SpO2 96 07/19/2025 1:00 PM Yunior Coffey RN O2 Device None (Room air) 07/19/2025 1:00 PM CUP MACHINE OPERATOR Yunior Amador, RN * Question Answer Entry Date Author Weight 3760 07/19/2025 9:46 AM CUP MACHINE OPERATOR Batsheva Burgess RN * Question Answer Entry Date Author BP 150/70 07/19/2025 1:00 PM Yunior Coffey RN Pulse 77 07/19/2025 1:00 PM Yunior Coffey, RN * Safety Factors Answer Entry Date Author bed in low position;call light in reach 07/19/20 25 9:47 AM Batsheva Walls, RN * Question Answer Entry Date Author Temp 96.7 07/19/2025 9:46 AM Batsheva Abebe RN documented in this encounter Plan of Treatment Upcoming Encounters Date Type Department Care Team (Late st Contact Info) Description 08/05/2025 11:00 AM CUP MACHINE OPERATOR Office Visit [facility] [address] [place] [address] Nicholas Mishra MD [address] [place] [address] 10/20/2025 3:30 PM CUP MACHINE OPERATOR Office Visit [facility] - Primary Care - Faby [address] [place] [id number] Kourtney Resendez APRN, PROJECT CONTROL OFFICER [address] [place] [address] documented as of this encounter Goals Goal Patient Goal Type Associated Problems Recent Progress Patient-Stated? Author Help patient manage hypertension Care Plan [facility] HYPERTENSION CONCERN (PATIENT ON HIGH BLOOD PRESSURE MEDICATIONS) No Kourtney Pineda APRN, MAGAN Help patient manage nicotine dependency Care Plan [facility] NICOTINE DEPENDENCY CONCERN No Kourtney Pineda APRN, PROJECT CONTROL OFFICER documented as of this encounter Visit Diagnoses Not on filedocumented in this encounter Additional Health Concerns Active Problems Noted Date Diagnosed Date [facility]P HYPERTENSION CONCERN (P ATIENT ON HIGH BLOOD PRESSURE MEDICATIONS) 12/15/2022 [facility]P NICOTINE DEPENDENCY CONCERN 12/15/2022 Assessment Noted Time PHQ-9 Depression Total Score: 3 04/21/20 25 3:13 PM CDT documented as of this encounter Care Teams Soubrette Relationship Specialty Start Date End Date Kourtney Resendez APRN, PROJECT CONTROL OFFICER [address] [place] [address] PCP - General Advanced Practice Nurse 10/19/17 Royal Salinas MD [address] [facility] [address] [place] [address] Consulting Physician General Surgery 02/06/23 Nicholas Mishra MD [address] [facility] [address] [place] [address] Consulting Physician Urological Surgery 02/14/23 Jany De La Torre APRN, INSTALL TECHNICIAN [address] [place] [address] Nurse Practitioner Advanced Practice Nurse 9/20/22 Tayler Garrett APRN, PROJECT CONTROL OFFICER [address] [place] [address] Nurse Practitioner Advanced Practice Nurse 12/13/22 documented as of this encounter
--- OUTSIDE RECORDS SUMMARY | 2025-07-24 07:34 | XMS_ITS | Encounter Summary ---
Author Organization [facility] Address [address] [place] [address] Phone Care Team Providers Care Lens Gauger Name Role Phone Troy Batres MD Unavailable Kourtney Resendez APRN, VACUUM CLOSING MACHINE OPERATOR Primary Care P rovider Royal Salinas MD Unavailable [phone] Nicholas Mishra MD Unavailable Jany De La Torre APRN, [facility] Unavailable + [phone] Tayler Garrett APRN, VACUUM CLOSING MACHINE OPERATOR Unavailable Reason for Visit * Reason Comments Medication Refill Encounter Details Date Type Department Care Team (Late st Contact Info) Description 08/29/2023 Refill [facility] - Primary Care - Faby [address] [place] [address] Kourtney Resendez APRN, VACUUM CLOSING MACHINE OPERATOR [address] [place] [address] Medication Refill Social History Tobacco Use Types Packs/Day Years Used Date Smoking Tobacco: Never Smokeless Tobacco: Never Alcohol Use Standard Drinks/Week Comments Yes 0 (1 standard drink = 0.6 oz pur e alcohol) Occasionally 2 drinks PHQ-2 Answer Date Recorded Total Score - Questions 1-9 0 04/04 Education Answer Date Recorded What is the [...] encounter Miscellaneous Notes * Telephone Encounter - Pilo Flowers RN - 08/30/2023 8:19 AM CST Duplicate Request L ROLLER documented in this encounter Plan of Treatment Upcoming Encounters Date Type Department Care Team (Late st Contact Info) Description 08/05/2025 11:00 AM OFFAL ROLLER Office Visit [facility] [address] [place] [address] Nicholas Mishra MD #[address] [address] 10/20/2025 3:30 PM OFFAL ROLLER Office Visit [facility] - Primary Care - Faby [address] [place] [address] Kourtney Resendez APRN, VACUUM CLOSING MACHINE OPERATOR [address] [place] [address] documented as of this encounter Goals Goal Patient Goal Type Associated Problems Recent Progress Patient-Stated? Author Help patient manage hypertension Care Plan [facility]P HYPERTENSION CONCERN (PATIENT ON HIGH BLOOD PRESSURE MEDICATIONS) No Kourtney Pineda APRN, VACUUM CLOSING MACHINE OPERATOR Help patient manage nicotine dependency Care Plan [facility]P NICOTINE DEPENDENCY CONCERN No Kourtney Pineda APRN, VACUUM CLOSING MACHINE OPERATOR documented as of this encounter Visit Diagnoses Diagnosis Anxiety and depression Dysthymic disorder documented in this encounter Additional Health Concerns Active Problems Noted Date Diagnosed Date [facility]P HYPERTENSION CONCERN (P ATIENT ON HIGH BLOOD PRESSURE MEDICATIONS) 12/15/2022 [facility]P NICOTINE DEPENDENCY CONCERN 12/15/2022 Assessment Noted Time PHQ-9 Depression Total Score: 0 04/25/20 21 3:00 PM CDT documented as of this encounter Care Teams Lens Gauger Relationship Specialty Start Date End Date Kourtney Resendez APRN, VACUUM CLOSING MACHINE OPERATOR [address] [place] [address] PCP - General Advanced Practice Nurse 10/19/17 Troy Batres MD [address] [place] [id number] Consulting Physician Pulmonary Disease 04/03/17 Royal Salinas MD [address] [address] Consulting Physician General Surgery 02/06/23 Nicholas Mishra MD #[address] [address] Consulting Physician Urological Surgery 02/14/23 Jany De La Torre APRN, CENTRAL OFFICE MAINTAINER [address] [place] [address] Nurse Practitioner Advanced Practice Nurse 05/23/22 Tayler Garrett APRN, VACUUM CLOSING MACHINE OPERATOR [address] [place] [address] Nurse Practitioner Advanced Practice Nurse 12/13/22 documented as of this encounter
--- OUTSIDE RECORDS SUMMARY | 2025-07-24 07:34 | XMS_ITS | Clinical Summary ---
Author Organization [facility] e Address [address] [place] [address] Care Team Providers Care Stage Set Up Worker Name Role Phone Troy Batres MD Primary Care Provider [phone] Allergies Active Allergy Reactions Criticality Noted Date Comments Niafarhan Muro High 07/31/2011 Medications aspirin (ALIREZA) 81 mg Oral Tab Take 81 mg by mouth daily. Active ascorbic acid (VITAMIN C) 500 mg tabletIndicatio ns:Unspecified sleep apnea Take 500 mg by mouth daily. Active Cholecalciferol , Vitamin D3, (VITAMIN D3) 400 unit capsuleIndicati ons:Unspecified sleep apnea Take 400 Units by mouth daily. Active tadalafil (CIALIS/ADCIRCA ) 20 mg tablet Take 0.5 Tablet (10 mg) by mouth 1 time daily as needed for Erectile Dysfunction. 3 Tablet 0 03/20/20 16 Active VENTOLIN HFA 90 mcg/actuation inhaler USE 2 INHALATIONS EVERY 6 HOURS NEEDED FOR SHORTNESS OF BREATH 54 Gram 11 09/11/19 17 Active HYDROcodone-judi taminophen (NORCO) 7.5-325 mg Tablet Take 1 Tablet by mouth every 4 hours as needed for Pain, Moderate. Max Daily Amount: 6 Tablet 60 Tablet 10/16/19 17 Active blood sugar diagnostic Strip 1 Strip 3 times daily before meals. 300 Each 04/02/20 17 Active Insulin Syringe-Needle U-100 1 mL 31 gauge x 5/16 Syringe USE DIRECTED TWICE DAILY WITH LANTUS. 100 Syringe 04/02/20 17 Active metoprolol tartrate (LOPRESSOR) 25 mg tablet Take 1 Tablet (25 mg) by mouth 1 time daily as needed (palpitations). 30 Tablet 04/02/20 17 Active linagliptin-met formin 2.5-1,000 mg tablet, IR & ER, biphasic 24hr Take 2 Tablets by mouth daily. 180 Each 3 04/30/20 17 Active fluticasone (FLONASE) 50 mcg/spray [place], Suspension USE TWO SPRAYS IN EACH NOSTRIL ONCE DAILY. 48 Gram 3 06/15/20 17 Active meloxicam (MOBIC) 15 mg tablet Take 1 Tablet (15 mg) by mouth daily. 90 Tablet 1 06/15/20 17 Active gemfibrozil (LOPID) 600 mg tablet Take 1 Tablet (600 mg) by mouth 2 times daily. 180 Tablet 1 06/15/20 17 Active Insulin Syringe-Needle U-100 (BD INSULIN SYRINGE ULT-FINE II) 1 mL 31 gauge x 5/16 Syringe USE DIRECTED TWICE DAILY. 180 Each 3 06/15/20 17 Active LEVEMIR U-100 INSULIN 100 unit/mL vial INJECT SUBCUTANEOUSLY 70 UNITS TWO TIMES A DAY 120 mL 4 12/27/19 18 Active temazepam (RESTORIL) 30 mg capsuleIndicati ons:Insomnia, unspecified type TAKE 1 CAPSULE BY MOUTH NIGHTLY NEEDED FOR INSOMNIA 90 Capsule 02/09/20 18 Active atorvastatin (LIPITOR) 10 mg tablet Take 1 Tablet by mouth daily. 04/05/20 20 Active hydrALAZINE (APRESOLINE) 50 mg tablet Take 50 mg by mouth 3 times daily. Active hydroCHLOROthia zide 25 mg tablet Take 25 mg by mouth daily. Active losartan (COZAAR) 100 mg tablet Take 100 mg by mouth daily. Active sertraline (ZOLOFT) 50 mg tablet Take 50 mg by mouth daily. Active insulin lispro (HumaLOG KwikPen Insulin) 100 unit/mL pen syringe 34 units before each meal. Correctional factor insulin of 1:10 if > 140 mg/dL. Up to 150 units per day 06/10/20 19 Active Active Problems Patient Care Coordination No te Formatting of this note migh t be different from the original. Dr. Ace - Account Manager Employee Benefits () Problem Noted Date Diagnosed Date Dyspnea 05/11/2020 Dizziness 05/11/2020 Insomnia 12/23/2016 Adhesive capsulitis of right shoulder 07/04/2016 Labral tear of shoulder 07/04/2016 Strain of right rotator cuff capsule 05/31/2016 Hip arthritis 09/22/2014 Reactive airway disease 06/30/2011 DM type 2 (diabetes mellitus, type 2) 05/16/2011 HTN (hypertension) 05/16/2011 Hyperlipidemia 05/16/2011 Overview (09/22/2014): (09/22/2014) TG > 1000, resume Lopid and add Lovaza which is PA'd through 07/18. GINETTE (obstructive sleep apnea) 05/16/2011 Overview (09/22/2014): Has CPAP, intolerant of it. To see pulmonary gain for new equipment. (09/22/14) Perennial allergic rhinitis 05/16/2011 Family hx of colon cancer 05/16/2011 Overview (09/22/2014): Colonoscopy normal 2012, repeat Jan, 2018. Dr. Lipscomb GERD (gastroesophageal reflux disease) 1 Overview (05/16/2011): Hx of stenosis and dilated 10 years ago BPH associated with nocturia 05/16/2011 Immunizations Immunization Administration Dates Next Due (ADACEL/BOOSTRIX)(10 YR UP) TDAP VACCINE, 0.5ML, IM 06/26/2016 Influenza Seasonal Unspecifi ed Formulation IM 05/04/2016,06/03/2015,05/23/2014,2012,07/04/2011 Influenza Vaccine Split 3+ Yrs IM 07/08/2012 Pneumococcal conjugate, unsp ecified formulation 07/08/2007 Family History Medical History Relation Name Comments Colon Cancer Father colon cancer Lung Cancer Maternal Grandfather Cancer Mother cancer blood sy stem - CLL? Diabetes Mother Emphysema Mother Heart Disease Mother Respiratory Disease Mother COPD Cancer Sister lymphoma Asthma Neg Hx Bronchitis Neg Hx Relation Name Status Comments Daughter 1 Alive Daughter 2 Alive Father (Age 59) colon cacn er Maternal Grandfather Maternal Grandmother Mother (Age 72) [place] Other Alive Paternal Grandfather Paternal Grandmother Sister Alive Son Alive Social History Tobacco Use Types Packs/Day Years Used Date Smoking Tobacco: Never Smokeless Tobacco: Never Tobacco Cessation:Counseling Given: Yes Alcohol Use Standard Drinks/Week Comments Yes 0 (1 standard drink = 0.6 oz pur e alcohol) occassional, 3/week Sex and Gender Information Value Date Recorded Sex Assigned at Not on file 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 Gender Identity Not on file Sexual Orientation Not on file Occupation Industry Job Start Date Job End Date Not on file Not on file Not on file Not on file Last Filed Vital Signs Vital Sign Reading Time Taken Comments Blood Pressure 140/66 05/11/2020 12:42 PM CDT Pulse 63 05/11/2020 12:42 PM CDT Temperature 36.7 C (98 F) 05/11/2020 12:42 PM CDT Respiratory Rate 16 03/27/2018 8:16 AM CDT Oxygen Saturation 96% 05/11/2020 12: 42 PM CDT Inhaled Oxygen Concentration - - Weight 114.2 kg (251 lb 12.8 oz) 2019 12:42 PM CDT Height 188 cm (6' 2) 05/11/2020 12:42 PM CDT Body Mass Index 32.33 05/11/2020 12:42 PM CDT Plan of Treatment Health Maintenance Due Date Last Done Comments FIT-DNA Q 3 years 2005 FIT/FOBT Q 1 year 2005 Flex Sig/CT Colonography Q 5 years 2005 RSV VACCINE (60+ or ) (1 - Risk 50-74 years 1-dose series) 2010 ZOSTER VACCINE (1 of 2) 2010 DIABETES MICROALBUMIN ANNUAL SCREEN 12/01/2016 12/02/2015, 09/29/2013, 10/11/2012, Additional history exists LDL CHOLESTEROL ANNUAL 12/29/2017 7, 11/13/2016, 12/24/2015, Additional history exists DIABETES ANNUAL FOOT EXAM 03/08/20182016, 03/08/2017, 11/27/2016, Additional history exists DIABETES ANNUAL RETINAL EXAM 11/27/2018 11/27/2017, 03/09/2017 DIABETES HBA1C Q 6 MONTHS 10/23/20202019, 07/05/2018, 12/29/2016, Additional history exists COLORECTAL SCREENING 01/03/2023 01/03/2013, 01/04/20 13 Colorectal Cancer Screening 01/03/2023 INFLUENZA VACCINE (#1) 2025 9, 05/04/2018, 07/18/2017, Additional history exists DTAP/TDAP/TD VACCINES (3 - T d or Tdap) 02/09/2028 02/08/2018, 06/26/2016 Procedures Procedure Name Priority Date/Time Associated Diagnosis Comments DIABETES EYE EXAM Routine 11/27/2017 LIPID PANEL Routine 12/29/2016 2:58 AM CDT Type 2 diabetes mellitus with hyperglycemia, with long-term current use of insulin ([facility]) Essential hypertension Hyperlipidemia, unspecified hyperlipidemia type HEMOGLOBIN A1C Routine 12/29/2016 2:58 AM CDT Type 2 diabetes mellitus with hyperglycemia, with long-term current use of insulin ([facility]) MICROALBUMIN/CREATI NINE RATIO, RANDOM UR Routine 12/02/2015 7:04 AM CDT Type 2 diabetes mellitus without complication ([facility]) from Last 3 Months or Most Recently Relevant to Health Maintenance Results * DIABETES EYE EXAM (11/27/2017) us Abstract Provider HEALTH MAINTENANCE Edited Resu lt - Final [facility] * (ABNORMAL) HEMOGLOBIN A1C (12/29/2016 2:58 AM CDT) HEMOGLOBIN A1C 7.4(H) <5.7 % of total Hgb [facility] Comment: For someone without known diabetes, a hemoglobin A1c value of 6.5% or greater indicates that they may have diabetes and this should be confirmed with a follow-up test. For someone with known diabetes, a value <7% indicates that their diabetes is well controlled and a value greater than or equal to 7% indicates suboptimal control. A1c targets should be individualized based on duration of diabetes, age, comorbid conditions, and other considerations. Currently, no consensus exists regarding use of hemoglobin A1c for diagnosis of diabetes for children. REPORT COMMENT: FASTING:YES Test Performed at: [facility] [address] [place] [address] BECKA QUARLES DO,MPH Blood 12/29/2016 2:58 AM CDT Donell Maza MD CHEMISTRY ORDERABLES Edited Result - Final Performing Organization Address [facility] Co de Phone Number [facility] [address] [place] [address] * (ABNORMAL) LIPID PANEL (12/29/2016 2:58 AM CDT) CHOLESTEROL 148 125 - 200 mg/dL [facility] HDL 24(L) > OR = 40 mg/dL [facility] TRIGLYCERIDE 312(H) <150 mg/dL [facility] LDL CALCULATED 62 <130 mg/dL (calc) [facility] Comment: Desirable range <100 mg/dL for patients with CHD or diabetes and <70 mg/dL for diabetic patients with known heart disease. CHOL/HDL RATIO 6.2(H) < OR = 5.0 (calc) [facility] TOTAL NON-HDL CHOL(LDL+VLDL) 124 mg/dL (calc) [facility] Comment: Target for non-HDL cholesterol is 30 mg/dL higher than LDL cholesterol target. Test Performed at: [facility] [id number] BECKA QUARLES DO,MPH Blood 12/29/2016 2:58 AM CDT Donell Maza MD CHEMISTRY ORDERABLES Final R esult Performing Organization Address [facility] Co de Phone Number [facility] [address] [place] [address] * MICROALBUMIN/CREATININE RATIO, RANDOM UR (12/02/2015 7:04 AM CDT) Creatinine, Urine 207 20 - 370 mg/dL [facility] Comment: Test Performed at: [facility] [place] [address] BECKA QUARLES DO,MPH MICROALBUMIN, URINE 4.4 mg/dL [facility] Comment: Reference Range Not established Test Performed at: [facility] [address] BECKA QUARLES DO,MPH MICROALBUMIN/CREAT RATIO, UR 21 <30 mcg/mg creat [facility] Comment: The ADA defines abnormalities in albumin excretion as follows: Category Result (mcg/mg creatinine) Normal <30 Microalbuminuria 30-299 Clinical albuminuria > OR = 300 The ADA recommends that at least two of three specimens collected within a 3-6 month period be abnormal before considering a patient to be within a diagnostic category. REPORT COMMENT: FASTING:YES Urine specimen (specimen) 12/02/2015 7:04 AM CDT us Donell Maza MD URINE ORDERABLES Final Resul t [facility] [address] [place] [address] from Last 3 Months or Most Recently Relevant to Health Maintenance Insurance [employer] ACCESS CHOICE Advance Directives For more information, please contact: [phone] * Full Code (Latest Code Status on File) Date Activated Date Inactivated Comments 01/03/2013 9:13 AM 01/03/2013 1:28 PM Care Teams Stage Set Up Worker Relationship Specialty Start Date End Date Troy Batres MD [address] [place] [phone] PCP - General Pulmonology 04/23/20
--- OUTSIDE RECORDS SUMMARY | 2025-07-24 07:34 | XMS_ITS | Encounter Summary ---
Author Organization [facility] Address [address] [place] [address] Phone Care Team Providers Care Hot Oiler Name Role Phone Kourtney Resendez APRN, BORING MACHINE OPERATOR Primary Care P rovider Royal Salinas MD Unavailable [phone] Nicholas Mishra MD Unavailable Jany De La Torre APRN, [facility] Unavailable [phone] Tayler Garrett APRN, BORING MACHINE OPERATOR Unavailable Encounter Details Date Type Department Care Team (Late st Contact Info) Description 12/11/2024 Transcribe Orders [facility] Central Scheduling [address] [place] [address] John Salazar [address] [place] [address] Social History Tobacco Use Types Packs/Day Years Used Date Smoking Tobacco: Never Smokeless Tobacco: Never Alcohol Use Standard Drinks/Week Comments Yes 0 (1 standard drink = 0.6 oz pur e alcohol) Occasionally 2 drinks [facility] Utilities Answer Date Recorded In the past 12 months has [employer], oil, or water [employer] threatened to shut off services in your home? Patient declined 11/20/2024 Social Connection and Isolation Panel Answer Date Recorded In a typical week, how many times do you talk on the phone with family, friends, or neighbors? Patient declined 11/20/2024 How often do you get togethe r with friends or relatives? Patient declined 11/20/2024 How often do you attend evangelical or hindu serv ices? Patient declined 11/20/2024 Do you belong to any clubs o r organizations such as evangelical groups, unions, fraternal or athletic groups, or [...] Total Score - Questions 1-9 0 11/02 [facility] - Occupational [...] were you homeless or living in a skilled nursing (including now)? 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 Office Visit [facility] [address] [place] [phone] Nicholas Mishra MD [address] [place] [address] 10/20/2025 3:30 PM CALENDER WORKER HELPER Office Visit [facility] - Primary Care - [place] [address] [place] [phone] Kourtney Resendez, FUR REPAIRER, BORING MACHINE OPERATOR [address] [place] [address] documented as of this encounter Goals Goal [...] documented as of this encounter Care Teams Hot Oiler Relationship Specialty Start Date End Date Kourtney Resendez APRN, [facility] [address] [place] [address] PCP - General Advanced Practice Nurse 10/19/17 Royal Salinas MD [address] [phone] Consulting Physician General Surgery 02/06/23 Nicholas Mishra MD [address] [phone] Consulting Physician Urological Surgery 02/14/23 Jany De La Torre APRN, FOLDER OPERATOR [address] [place] [address] Nurse Practitioner Advanced Practice Nurse 05/23/22 Tayler Garrett APRN, BORING MACHINE OPERATOR [address] [place] [address] Nurse Practitioner Advanced Practice Nurse 12/13/22 documented as of this encounter
--- OUTSIDE RECORDS SUMMARY | 2025-07-24 07:34 | XMS_ITS | Clinical Summary ---
Author Organization [facility] Address [address] [facility], [place] [address] Phone Care Team Providers Care Wearing Apparel Shaker Name Role Phone Kourtney Resendez APRN, SPLUNK DEVELOPER Primary Care P rovider Royal Salinas MD Unavailable Nicholas Mishra MD Unavailable Jany De La Torre APRN, [facility] Unavailable [phone] Tayler Garrett APRN, [facility] Unavailable Allergies Active Allergy Reactions Criticality Noted Date Comments Atorvastatin Unknown Low 06/11/2023 Niacin Hives Medium 10/19/2017 Medications ascorbic acid (ASCORBIC ACID) 500 MG Tablet Take 500 mg by mouth every morning. Active Aspirin 81 MG Tablet Take 81 mg by mouth every morning. Active Cholecalciferol (VITAMIN D3) 400 units Capsule Take 1 Cap by mouth every morning. Active tadalafil (Cialis) 20 MG Tablet Take 10 mg by mouth as needed. 03/20/20 16 Active hydrALAZINE 50 MG Tablet Take 50 mg by mouth every morning. 03/24/20 20 Active Insulin Pen Needle (Pen [place]) 32G X 4 MM Misc 3 times a day 300 Each 3 06/18/20 Active Glucose Blood (ONE TOUCH ULTRA TEST) StripIndications:T ype 2 diabetes mellitus with diabetic nephropathy, with long-term current use of insulin Four times a day 400 Each 3 06/18/20 Active Insulin Regular Human (NovoLIN R FlexPen ReliOn) 100 UNIT/ML Solution Pen-injector 45 units at breakfast, 30 units at lunch, and 45 units at dinner. ISF of 1:10 if >140 mg/dL. Up to 200 units/day 60 mL 3 10/19/19 Active insulin NPH (NovoLIN N FlexPen ReliOn) 100 UNIT/ML Suspension Pen-injector 42 Units by Subcutaneous route 2 times daily. 30 mL 3 10/19/19 21 Active Insulin Syringe-Needle U-100 (BD Insulin Syringe U/F) 31G X 01/16 1 ML Misc USE DIRECTED TWICE DAILY. DX E11.9 200 Syringe 3 12/30/19 21 Active amLODIPine (NORVASC) 10 MG Tablet Take 10 mg by mouth daily. 10/10/19 22 Active empagliflozin (JARDIANCE) 25 MG Tablet TAKE 1 TABLET EARLY IN THE MORNING BEFORE BREAKFAST 08/30/20 23 Active Magnesium 400 MG CapsuleIndications :Hypomagnesemia Take 1 Capsule by mouth daily. 90 Capsule 2 01/11/20 24 Active Continuous Glucose Sensor (Dexcom G7 Sensor) Misc 1 Device by Other route. 09/18/19 25 Active dexamethasone (DECADRON) 4 MG Tablet Take 1 Tablet by mouth 2 times daily. 10 Tablet 11/19/19 25 Active HYDROcodone-acetam inophen (NORCO) 5-325 MG TabletIndications: Right flank pain Take 1 Tablet by mouth every 8 hours as needed for Severe pain. 14 Tablet 11/18/19 25 Active Mounjaro 7.5 MG/0.5ML Solution Auto-injector 7.5 mg by Subcutaneous route once a week. 03/25/20 25 Active sertraline (ZOLOFT) 50 MG TabletIndications: Anxiety and depression Take 1 Tablet by mouth daily. 90 Tablet 07/10/20 25 Active dicyclomine (BENTYL) 20 MG TabletIndications: Pain of upper abdomen Take 1 Tablet by mouth every 6 hours as needed for Other. 120 Tablet 07/10/20 25 Active tamsulosin (FLOMAX) 0.4 MG CapsuleIndications :BPH associated with nocturia Take 1 Capsule by mouth daily. 90 Capsule 3 07/10/20 25 Active metoprolol tartrate (LOPRESSOR) 50 MG Tablet Take 1 Tablet by mouth 2 times daily. 180 Tablet 1 07/10/20 25 Active fenofibrate 160 MG TabletIndications: Hypertriglyceridem ia Take 1 Tablet by mouth daily. 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 90 Tablet 1 07/10/20 25 Active furosemide (LASIX) 20 MG TabletIndications: Hypertension associated with type 2 diabetes mellitus Take 1 Tablet by mouth daily. 90 Tablet 1 07/10/20 25 Active temazepam (RESTORIL) 30 MG CapsuleIndications :Insomnia, unspecified type Take 1 Capsule by mouth nightly as needed for Sleep. 90 Capsule 1 07/10/20 25 Active metFORMIN (GLUCOPHAGE) 1000 MG TabletIndications: Type 2 diabetes mellitus with diabetic nephropathy, with long-term current use of insulin TAKE 1 TABLET TWICE A DAY WITH MEALS 180 Tablet 1 07/10/20 25 Active losartan (COZAAR) 100 MG Tablet Take 1 Tablet by mouth daily. 90 Tablet 1 07/10/20 25 Active omeprazole (PriLOSEC) 20 MG CAPSULE DELAYED RELEASE Take 1 Capsule by mouth daily. 90 Capsule 1 07/10/20 25 Active fluticasone (FLONASE) 50 MCG/ACT Suspension 2 Sprays by Nasal route daily. Use in each nostril as directed. 48 g 1 07/10/20 25 Active rosuvastatin (CRESTOR) 20 MG TabletIndications: Mixed hyperlipidemia Take 1 Tablet by mouth daily. 90 Tablet 1 07/10/20 25 Active meloxicam (MOBIC) 7.5 MG Tablet Take 1 Tablet by mouth daily. 90 Tablet 1 07/10/20 25 Active cyclobenzaprine (FLEXERIL) 10 MG Tablet Take 0.5 Tablets by mouth 3 times daily as needed (back pain). 15 Tablet 07/19/20 25 Active valACYclovir (VALTREX) 1 GM Tablet Take 1 Tablet by mouth 3 times daily for 7 days. 21 Tablet 07/20/20 25 025 Active metoprolol tartrate (LOPRESSOR) 50 MG Tablet Take 1 Tablet by mouth 2 times daily. 180 Tablet 3 02/13/20 23 025 Discontin ued(Reord er) dicyclomine (BENTYL) 20 MG TabletIndications: Pain of upper abdomen Take 1 Tablet by mouth every 6 hours as needed for Other. 120 Tablet 07/16/20 23 025 Discontin ued(Reord er) fenofibrate 160 MG TabletIndications: Hypertriglyceridem ia Take 1 Tablet by mouth daily. 90 Tablet 1 03/28/20 24 025 Discontin ued(Reord er) Finerenone 10 MG TabletIndications: Type 2 diabetes mellitus with stage 3a chronic kidney disease, with long-term current use of insulin Take 10 mg by mouth daily. 30 Tablet 06/16/20 24 025 Discontin ued(Reord er) furosemide (LASIX) 20 MG TabletIndications: Hypertension associated with type 2 diabetes mellitus Take 1 Tablet by mouth daily. 90 Tablet 1 07/03/20 24 025 Discontin ued(Reord er) temazepam (RESTORIL) 30 MG CapsuleIndications :Insomnia, unspecified type Take 1 Capsule by mouth nightly as needed for Sleep. 90 Capsule 1 01/09/20 25 025 Discontin ued(Reord er) metFORMIN (GLUCOPHAGE) 1000 MG TabletIndications: Type 2 diabetes mellitus with diabetic nephropathy, with long-term current use of insulin TAKE 1 TABLET TWICE A DAY WITH MEALS 180 Tablet 3 01/14/20 25 025 Discontin ued(Reord er) losartan (COZAAR) 100 MG Tablet TAKE 1 TABLET DAILY 90 Tablet 3 04/14/20 25 025 Discontin ued(Reord er) tamsulosin (FLOMAX) 0.4 MG CapsuleIndications :BPH associated with nocturia Take 1 Capsule by mouth daily. 90 Capsule 3 04/15/20 25 025 Discontin ued(Reord er) omeprazole (PriLOSEC) 20 MG CAPSULE DELAYED RELEASE Take 1 Capsule by mouth daily. 90 Capsule 04/15/20 25 025 Discontin ued(Reord er) fluticasone (FLONASE) 50 MCG/ACT Suspension 2 Sprays by Nasal route daily. Use in each nostril as directed. 48 g 1 04/15/20 25 025 Discontin ued(Reord er) sertraline (ZOLOFT) 50 MG TabletIndications: Anxiety and depression Take 1 Tablet by mouth daily. 90 Tablet 04/15/20 25 025 Discontin ued(Reord er) rosuvastatin (CRESTOR) 20 MG TabletIndications: Mixed hyperlipidemia Take 1 Tablet by mouth daily. 90 Tablet 1 06/16/20 25 025 Discontin ued(Reord er) meloxicam (MOBIC) 7.5 MG Tablet Take 1 Tablet by mouth daily. 90 Tablet 06/16/20 25 025 Discontin ued(Reord er) valACYclovir (VALTREX) 1 GM Tablet Take 1 Tablet by mouth 3 times daily for 7 days. 21 Tablet 07/20/20 025 Discontin ued(Dupli nolberto Order) Active Problems Problem Noted Date Diagnosed Date Ascending aorta dilatation 11/07/2021 Valvular heart disease 04/16/2020 Overview (04/28/2020): Mild MR/TR on echo 10 December 2019. Normal LVEF. Last Assessment & Plan: On the small chance that he could have COVID -19 cardiomyopathy, I will get an echocardiogram now. Sick sinus syndrome 12/05/2019 Overview (04/28/2020): Status post Biotronik Eluna 8 DRT in August 2019. Last Assessment & Plan: We discussed today's pacemaker rep check. All [...] in a few weeks. BMP okay recently. Angina pectoris 12/05/2019 Overview (04/28/2020): Normal coronaries by cardiac catheterization August 2019 at [facility] by Dr. Tripp. Last Assessment & Plan: Having some chest pressure with exertion with some shortness of breath. He just tested positive for COVID-19 about a month ago. I recommended that he sees his primary care doctor as soon as possible for repeat chest x-ray or a CT scan the chest. Anxiety and depression 10/02/2019 Transient complete heart block 08/21/2019 Cervical spondylosis with radiculopathy 03/21/20 19 Obesity (BMI 30-39.9) 01/10/2019 Insomnia 12/23/2016 Reactive airway disease 06/30/2011 DM (diabetes mellitus), type 2 with renal compli cations 05/16/2011 Overview (02/08/2023): Pt is followed by ENDO BPH associated with nocturia 05/16/2011 Family hx of colon cancer 05/16/2011 Overview (08/23/2018): Overview: Colonoscopy normal 2012, repeat Jan, 2018. Dr. Lipscomb GERD (gastroesophageal reflux disease) 1 Overview (08/15/2019): Overview: Hx of stenosis and dilated 10 years ago Hx of stenosis and dilated 10 years ago Hx of stenosis and dilated 10 years ago GINETTE (obstructive sleep apnea) 05/16/2011 Overview (08/23/2018): Overview: Has CPAP, intolerant of it. To see pulmonary gain for new equipment. (09/22/14) Perennial allergic rhinitis 05/16/2011 Type 2 diabetes mellitus wit h hyperglycemia, with long-term current use of insulin 05/16/2011 Overview (12/25/2023): Last Assessment & Plan: This is a chronic condition which is [...] last dilated eye exam was [facility] in [place] Monofilament foot exam completed. protective senses intact Personally reviewed CMP eGFR- 59 Kidney function- abnormal Urine microalbumin/creatinine ratio - not at goal <30 not treated with losartan, amlodipine, hydralazine B/P today- at goal of <140/90. continue losartan, amlodipine, hydralazine Personally reviewed lipid panel. Not at Goal of less than 70. Continue fenofibrate, rosuvastatin Hypertension associated with type 2 diabetes pramod nicolas 05/16/2011 Overview (12/25/2023): Last Assessment & Plan: This is a chronic condition which is at goal of less than 140/90 Personally reviewed labs. Continue losartan, amlodipine, hydralazine Encouraged to monitor weight and B/P at home Encouraged to take medications as prescribed. Hyperlipidemia associated with type 2 diabetes daniel garcia 05/16/2011 Overview (12/25/2023): LDL of 44 mg/dL on 11 September 2019. Triglyceride of 564 mg/dL on 02 December 2019. No direct LDL done. Last Assessment & Plan: This is a chronic condition which is not at goal of LDL less than 70. Triglycerides remain elevated Continue rosuvastatin, fenofibrate Encouraged to eat healthy, include fresh fruits and vegetables daily and avoid eating fried foods more than once per week. Encouraged to take medications as prescribed. Resolved Problems Problem Noted Date Diagnosed Date Resolved Date Diabetes mellitus treated wi th oral medication 01/18/2022 06/01/2022 Overview (06/01/2022): Last Assessment & Plan: Continue Jardiance 25 mg p.o. daily no urinary track infections symptoms Hypomagnesemia 08/21/2019 08/25/2019 Syncope and collapse 08/15/2019 019 Abdominal pain, generalized 03/29/2019 03/29/2019 Intractable nausea and vomiting 03/28/2019 03/29/2019 Adhesive capsulitis of right shoulder 07/04/2016 03/21/2019 Labral tear of shoulder 07/04/201603/03 Strain of right rotator cuff capsule 05/31/2016 03/21/2019 Hypertension 05/16/2011 01/08/2025 Mixed hyperlipidemia 05/16/2011 025 Overview (08/15/2019): (09/22/2014) TG > 1000, resume Lopid and add Lovaza which is PA'd through 07/18. Encounters Date Type Department Care Team Description 07/20/2025 3:58 AM ART DEALER - 07/20/2025 7:34 AM ART DEALER Emergency [facility] [address] [place] [address] Kp Schuler DO Masching, Patrick A, MD Right lower quadrant abdominal pain Discharge Disposition: Discharged to home or Selfcare 07/19/2025 9:42 AM ART DEALER - 07/19/2025 1:16 PM ART DEALER Emergency [facility] [address] [place] [address] Rachel Dunlap MD Right-sided back pain Discharge Disposition: Discharged to home or Selfcare 07/19/2025 Travel 07/17/2025 Telephone [facility] [address] [place] [phone] Kourntey Resendez, RED HAT LINUX ADMINISTRATOR, SPLUNK DEVELOPER Prior Authorization (finerenone (KERENDIA) 10 MG Tablet) 07/16/2025 9:20 AM ART DEALER [facility] - [place] [address] [place] [phone] Hypertension associated with type 2 diabetes mellitus; Hyperlipidemia associated with type 2 diabetes mellitus; Transient complete heart block; Type 2 diabetes mellitus with other diabetic kidney complication, with long-term current use of insulin; Encounter for screening prostate specific antigen (PSA) measurement; Sick sinus syndrome; Type 2 diabetes mellitus with hyperglycemia, with long-term current use of insulin; Ascending aorta dilatation; Anxiety and depression Discharge Disposition: Discharged to home or Selfcare 07/16/2025 Results Follow-Up [facility] [address] [place] [address] Kourtney Resendez APRN, MAGAN CMP (COMPREHENSIVE METABOLIC PANEL), LIPID PANEL, UR MICROALBUMIN/CREATI NINE RATIO RANDOM 07/16/2025 Travel 07/09/2025 MyChart RX Renewal [facility] [address] [place] [address] Kourtney Resendez APRN, MAGAN Medication Renewal Reviewed 07/09/2025 MyChart RX Renewal [facility] [address] [place] [address] Rossi Luong MD Medication Renewal Declined 07/09/2025 MyChart RX Renew[address] [facility] [address] [place] [address] Nicholas Mishra MD Medication Renewal Reviewed 07/09/2025 MyChart RX Renewal [facility] [address] [place] [address] Tayler Garrett APRN, MAGAN Medication Renewal Reviewed 07/09/2025 MyChart RX Renewal [facility] [address] [place] [address] Erik Levin MD Medication Renewal Reviewed 06/14/2025 MyChart RX Renewal [facility] [address] [place] [address] Kourtney Resendez APRN, MAGAN Medication Renewal Declined from Last 3 Months Immunizations Immunization Administration Dates Next Due Covid-19, Mrna, Lnp-s, Pf, 3 0 Mcg/0.3 Ml Dose (Pfizer) 11/23/2020,11/02/2020 Covid-19, Mrna, Lnp-s, Pf, 3 0 Mcg/0.3 Ml Dose, Maximo-sucrose ([facility] hadley top) 03/19/2022 Influenza Vaccine 05/04/2018 Influenza Vaccine greater than 3 yrs 06/04/2019, 07/18/2017 Influenza Vaccine, Quadrivalent, PF 06/03,05/30/2022,11/09/2021,06/28 Influenza, Seasonal, Injecta ble, Undefined 07/08/2012 Influenza,Split Virus,Trivalent,Injectable,PF 07/03/2024 Pneumococcal PCV, Unspecifie d Formulation 07/08/2007 Pneumococcal Vaccine, Unspec ified Formulation 07/08/2007 Pneumococcal conjugate PCV20 , polysaccharide [id number] conjugate, adjuvant, PF 06/01/2022 TDAP Vaccine 07/03/2024,02/08/2018,06/26/2016 Family History Medical History Relation Name Comments No Known Problems Daughter Cancer Father colon Colon Cancer Father Cancer Maternal Grandfather lung Lung Cancer Maternal Grandfather No Known Problems Maternal Grandmother Chronic Obstructive Pulmonary Disease Mother Diabetes Mother Heart Attack Paternal Grandfather No Known Problems Paternal Grandmother Chronic Obstructive Pulmonary Disease Sister No Known Problems Son Relation Name Status Comments Daughter Alive Father Maternal Grandfather Maternal Grandmother Mother Paternal Grandfather Paternal Grandmother Sister Son Alive Social History Tobacco Use Types Packs/Day Years Used Date Smoking Tobacco: Never Smokeless Tobacco: Never Tobacco Cessation:Counseling Given: No Alcohol Use Standard Drinks/Week Comments Yes 0 (1 standard drink = 0.6 oz pur e alcohol) Occasionally 2 drinks Infof[employer] Answer Date Recorded In the past 12 months has xTV, gas, oil, or water [employer] threatened to shut off services in your home? Patient declined 11/20/2024 Social Connection and Isolation Panel Answer Date Recorded In a typical week, how many times do you talk on the phone with family, friends, or neighbors? Patient declined 11/20/2024 How often do you get togethe r with friends or relatives? Patient declined 11/20/2024 How often do you attend episcopalian or christianity serv ices? Patient declined 11/20/2024 Do you belong to any clubs o r organizations such as episcopalian groups, unions, fraternal or athletic groups, or [...] Total Score - Questions 1-9 3 04/03 [facility] of Occupat ional [facility] - Occupational Stress Questionnaire Answer Date Recorded [...] any time in the past 12 m [facility], were you homeless or living in a senior care (including now)? Patient declined 11/20/2024 Education Answer [...] PM CDT Sexual Orientation Not on file Last Filed Vital Signs Vital Sign Reading Time Taken Comments Blood Pressure 154/91 07/20/2025 7:00 AM ART DEALER Pulse 59 07/20/2025 7:00 AM ART DEALER Temperature 36.2 C (97.2 F) 07/20/2025 4:04 AM ART DEALER Respiratory Rate 18 07/20/2025 7:00 AM ART DEALER Oxygen Saturation 98% 07/20/2025 7:00 AM ART DEALER Inhaled Oxygen Concentration - - Weight 106.6 kg (235 lb 0.2 oz) 07/20/2025 4:04 AM ART DEALER Height 188 cm (6' 2) 07/20/2025 4:04 AM ART DEALER Body Mass Index 30.17 07/20/2025 4:04 AM ART DEALER Plan of Treatment Upcoming Encounters Date Type Department Care Team (Late st Contact Info) Description 08/05/2025 11:00 AM ART DEALER Office Visit [facility] [address] [place] [place] [address] Nicholas Mishra MD [address], [address] [phone] 10/20/2025 3:30 PM ART DEALER Office Visit [facility] [place] [address] [place] [phone] Kourtney Resendez, RED HAT LINUX ADMINISTRATOR, SPLUNK DEVELOPER [address] [place] [address] Health Maintenance Due Date Last Done Comments Cologuard 2005 Immunochemical Fecal Occult Blood 2005 Respiratory Syncytial Virus (RSV) Immunization (Adult) (1 - Risk 50-74 years 1-dose series) 2010 Zoster Immunization (1 of 2) 2010 Influenza Immunization (#1) 05/04/202506/05, 06/21/2023, 05/30/2022, Additional history exists SARS-COV-2 Immunization ( season) 2025 03/19/2022, 07/25/2021, 11/23/2020, Additional history exists Diabetes: Foot Exam 12/24/2025 12/24/2024, 04/09/2024, 09/25/2023, Additional history exists Diabetes: Hemoglobin A1c 12/24/2025 025, 03/25/2025, 12/31/2024, Additional history exists Diabetes: Eye Exam 01/27/2026 01/27/2025, 0 01/27/2025, 11/01/2022, Additional history exists Diabetes: Nephropathy Screening 07/20/2026 07/20/2025, 07/19/2025, 07/16/2025, Additional history exists Colonoscopy 04/24/2028 04/24/2023, 04/04, 04/22/2020, Additional history exists Colorectal Cancer Screening 04/24/2028 Td Immunization Every 10 Years (Adults With 1 Tdap) 07/03/2034 07/03/2024, 02/08/2018, 06/26/2016 Pneumococcal Immunization (50+ years) Completed 06/01/2022, 07/08/2007, 07/08/2007 Pneumococcal Immunization Combined Discontinued 06/01/2022, 07/08/2007, 07/08/2007 Hepatitis C Virus (HCV) Screening Completed 12/18/2023 PSA Discussion Completed 07/16/2025, 01/02, 04/16/2024, Additional history exists Hepatitis B Immunization Discontinued Human Papillomavirus (HPV) Immunization Aged Out No longer eligible based on patient's age to complete this topic Meningococcal Immunization (ACWY) Aged Out No longer eligible based on patient's age to complete this topic Rotavirus Immunization Aged Out No lo nger eligible based on patient's age to complete this topic Goals Goal Patient Goal Type Associated Problems Recent Progress Patient-Stated? Author Help patient manage hypertension Care Plan [facility] HYPERTENSION CONCERN (PATIENT ON HIGH BLOOD PRESSURE MEDICATIONS) No Kourtney Pineda APRN, MAGAN Help patient manage nicotine dependency Care Plan [facility] NICOTINE DEPENDENCY CONCERN No Kourtney Pineda APRN, MAGAN Medical Devices Implanted Type Area Clothing Patternmaker Device Identifier Shelf Expiration Date Model / Serial / Lot Device Clsr 70cm 6fr Angio-Seal Vip .035in Vasc Collagen Valuelink Gw Insertion sandy Restrepo - [id number] Implanted:Qty: 1 on 08/15/[facility] IMPLANT Right: Groin [employer]aven[employer]Med[employer]istro [employer] 03/02/2020 [id number] / / [id number] Pacemaker Edora 8 Juancho - [id number] Implanted:Qty: 1 on 08/21/2019 by [facility] IMPLANT [employer] [id number] / [id number] / [id number] [id number] Solia 7 60 Pacemaker Lead Implanted:Qty: 1 on 08/21/2019 by [facility] [employer] 03/02/2020 / [id number] / [id number] [id number] Solia Jt 53 Pacemaker Lead Implanted:Qty: 1 on 08/21/2019 by Tyler Diane MD at [facility] 06/02/2021 / [id number] / [id number] Procedures Procedure Name Priority Date/Time Associated Diagnosis Comments CT ABDOMEN PELVIS W/ CONTRAST Stat with Interpretation 07/20/2025 5:13 AM ART DEALER URINALYSIS REFLEX IF INDICATED BY ABNORMAL RESULTS STAT 07/20/2025 4:44 AM ART DEALER CBC WITH AUTO DIFFERENTIAL STAT 07/20/2025 4:19 AM ART DEALER LIPASE STAT 07/20/2025 4:19 AM ART DEALER COMPLETE BLOOD COUNT (CBC) WITH DIFF STAT 07/20/2025 4:19 AM ART DEALER CMP (COMPREHENSIVE METABOLIC PANEL) STAT 07/20/2025 4:[address] - ABDOMEN/PELVIS 07/20/2025 12:[address] RENAL STONE STUDY (ABDOMEN AND PELVIS W/O CONTRAST) Stat with Interpretation 07/19/2025 11:12 AM ART DEALER URINALYSIS REFLEX IF INDICATED BY ABNORMAL RESULTS STAT 07/19/2025 10:57 AM ART DEALER CBC WITH AUTO DIFFERENTIAL STAT 07/19/2025 10:00 AM ART DEALER CMP (COMPREHENSIVE METABOLIC PANEL) STAT 07/19/2025 10:00 AM ART DEALER COMPLETE BLOOD COUNT (CBC) WITH DIFF STAT 07/19/2025 10:[address] - ABDOMEN/PELVIS 07/19/2025 12:00 AM ART DEALER UR MICROALBUMIN/CREAT ININE RATIO RANDOM Routine 07/16/2025 8:15 AM ART DEALER Hypertension associated with type 2 diabetes mellitus Hyperlipidemia associated with type 2 diabetes mellitus Transient complete heart block Type 2 diabetes mellitus with other diabetic kidney complication, with long-term current use of insulin LIPID PANEL Routine 07/16/2025 8:07 AM ART DEALER Hyperlipidemia associated with type 2 diabetes mellitus Hypertension associated with type 2 diabetes mellitus Sick sinus syndrome Transient complete heart block Type 2 diabetes mellitus with other diabetic kidney complication, with long-term current use of insulin Type 2 diabetes mellitus with hyperglycemia, with long-term current use of insulin Ascending aorta dilatation Anxiety and depression PSA SCREEN Routine 07/16/2025 8:07 AM ART DEALER Encounter for screening prostate specific antigen (PSA) measurement CMP (COMPREHENSIVE METABOLIC PANEL) Routine 07/16/2025 8:07 AM ART DEALER Hypertension associated with type 2 diabetes mellitus Hyperlipidemia associated with type 2 diabetes mellitus Transient complete heart block Type 2 diabetes mellitus with other diabetic kidney complication, with long-term current use of insulin HM DILATED EYE EXAM 01/27/2025 12:00 AM CDT HEMOGLOBIN A1C W/ ESTIMATED GLUCOSE Routine 12/31/2024 8:00 AM CDT Type 2 diabetes mellitus with diabetic nephropathy, with long-term current use of insulin (HCC) Insomnia, unspecified type Hypertension associated with type 2 diabetes mellitus (HCC) Mixed hyperlipidemia Type 2 diabetes mellitus with stage 3a chronic kidney disease, with long-term current use of insulin (HCC) HEPATITIS C ANTIBODY Routine 12/18/2023 7:56 AM CDT Encounter for HCV screening test for low risk patient GI IMAGING - COLONOSCOPY Routine 04/24/2023 6:21 AM CDT from Last 3 Months or Most Recently Relevant to Health Maintenance Results * CT ABDOMEN PELVIS W/ CONTRAST (07/20/2025 5:13 AM ART DEALER) Anatomical Region Laterality Modality Abdomen N/A Computed Tomogra phy 07/20/2025 5:13 AM ART DEALER Impressions 07/20/2025 7:00 AM ART DEALER IMPRESSION: 1. No acute abnormality. 2. Unchanged 2 cm intermediate density subcapsular lesion in the lateral left hepatic lobe since at least 10/16/2023. Finding is technically indeterminate but likely benign given the years of stability. Recommend nonemergent MRI abdomen liver protocol for complete characterization. 3. Mild nonspecific splenomegaly. Narrative 07/20/2025 7:00 AM ART DEALER DICTATING PHYSICIAN: Donell Sanz D.O. EXAM DATE: 07/20/2025 5:13 AM EXAM: CT ABDOMEN PELVIS W/ CONTRAST COMPARISON: None. INDICATION: RLQ abdominal pain (Age >= 14y), c/o right flank and RLQ abdominal pain for several months, worsening x 2-3 weeks. HX: HTN, DM, Gallstones. PROCEDURE: 100 mL of Isovue 300 was injected IV. Enteric contrast given. Radiation dose reduction technique(s) were used. Radiation dose reduction techniques were employed. CTDIvol: 2.9 - 20.3 mGy. DLP: 1554 mGy-cm. FINDINGS: ABDOMEN: Liver: Unchanged 2.0 cm intermediate density subcapsular lesion in the lateral left hepatic lobe is unchanged since at least 10/16/2023. Gallbladder: Cholelithiasis. No biliary ductal dilation. Spleen: Mild splenomegaly. The spleen measures 14.3 cm in craniocaudal dimension. Adrenals: Normal. Pancreas: No mass or adjacent stranding. Normal caliber duct. Aorta/IVC: Normal caliber aorta with scattered calcified plaque. Normal caliber IVC. No retroperitoneal adenopathy. Kidneys/Ureters/Bladder: No calculus, mass or hydronephrosis. PELVIS: Reproductive Organs: Enlarged prostate. Bowel: Normal appendix. No dilation or wall thickening. Few scattered descending colon diverticula. Mesentery: Nonspecific very mild mistiness of the mesentery with several scattered mildly prominent lymph nodes, unchanged from prior exam. Peritoneum: No free fluid. Lower chest: Right lower lobe pulmonary nodule measuring 4 mm (series 301, image one), unchanged from at least 2 years compatible with benign etiology and not requiring any additional follow-up. Scattered linear bands of atelectasis in the lung bases. Bones/Body wall: No destructive lesion. No significant abnormality. Procedure Note Donell Sanz DO - 07/20/2025 DICTATING PHYSICIAN: Donell Sanz D.O. EXAM DATE: 07/20/2025 5:13 AM EXAM: CT ABDOMEN PELVIS W/ CONTRAST COMPARISON: None. INDICATION: RLQ abdominal pain (Age >= 14y), c/o right flank and RLQabdominal pain for several months, worsening x 2-3 weeks. HX: HTN, DM,Gallstones. PROCEDURE: 100 mL of Isovue 300 was injected IV. Enteric contrast given.Radiation dose reduction technique(s) were used. Radiation dose reductiontechniques were employed. CTDIvol: 2.9 - 20.3 mGy. DLP: 1554 mGy-cm. FINDINGS: ABDOMEN: Liver: Unchanged 2.0 cm intermediate density subcapsular lesion in thelateral left hepatic lobe is unchanged since at least 10/16/2023. Gallbladder: Cholelithiasis. No biliary ductal dilation. Spleen: Mild splenomegaly. The spleen measures 14.3 cm in craniocaudaldimension. Adrenals: Normal. Pancreas: No mass or adjacent stranding. Normal caliber duct. Aorta/IVC: Normal caliber aorta with scattered calcified plaque. Normalcaliber IVC. No retroperitoneal adenopathy. Kidneys/Ureters/Bladder: No calculus, mass or hydronephrosis. PELVIS: Reproductive Organs: Enlarged prostate. Bowel: Normal appendix. No dilation or wall thickening. Few scattereddescending colon diverticula. Mesentery: Nonspecific very mild mistiness of the mesentery with severalscattered mildly prominent lymph nodes, unchanged from prior exam. Peritoneum: No free fluid. Lower chest: Right lower lobe pulmonary nodule measuring 4 mm (series 301,image one), unchanged from at least 2 years compatible with benignetiology and not requiring any additional follow-up. Scattered linearbands of atelectasis in the lung bases. Bones/Body wall: No destructive lesion. No significant abnormality. IMPRESSION: 1. No acute abnormality. 2. Unchanged 2 cm intermediate density subcapsular lesion in the lateralleft hepatic lobe since at least 10/16/2023. Finding is technicallyindeterminate but likely benign given the years of stability. Recommendnonemergent MRI abdomen liver protocol for complete characterization. 3. Mild nonspecific splenomegaly. Kp Schuler DO G CT ORDERABLES Final Result * (ABNORMAL) Urinalysis Reflex if Indicated by Abnormal Results (07/20/2025 4:44 AM ART DEALER) Only the most recent of2 resultswithin the time period is included. SPECIFIC GRAVITY 1.010 1.003 - 1.030 07/20/2025 5:41 AM ART DEALER [facility] URINE PH 6.0 5.0 - 9.0 07/20/2025 5:41 AM ART DEALER [facility] WBC ESTERASE Negative Negative 07/20/2025 5:41 AM ART DEALER [facility] NITRITE Negative Negative 07/20/2025 5:41 AM ART DEALER [facility] PROTEIN, RANDOM URINE 30 mg/dL(A) Negative 07/20/2025 5:41 AM [facility] URINE GLUCOSE, QUAL 100 mg/dL(A) Negative 07/20/2025 5:41 AM [facility] URINE KETONES Negative Negative 07/20/2025 5:41 AM [facility] UROBILINOGEN Normal Normal mg/dL 07/20/2025 5:41 AM [facility] URINE BLOOD 10 /uL(A) Negative javi/ul 07/20/2025 5:41 AM [facility] URINALYSIS COLOR Yellow 07/20/2025 5:41 AM [facility] URINALYSIS CLARITY Clear 07/20/2025 5:41 AM [facility] WBC (Urine) Negative Negative, 0-5 /hpf 07/20/2025 5:41 AM [facility] URINE RBC'S 3-5(A) Negative, 0-2 /hpf 07/20/2025 5:41 AM [facility] EPITHELIAL CELLS Occasional /lpf 07/20/2025 5:41 AM [facility] BACTERIA, URINE Negative Negative /hpf 07/20/2025 5:41 AM [facility] Urine URINE SPECIMEN / Unknown Non-Phlebotomy Collection / Unknown 07/20/2025 4:44 AM ART DEALER 07/20/2025 4:54 AM ART DEALER us Kp Schuler DO URINE ORDERABLES Final Result [facility] [address] [place] [address] * (ABNORMAL) CBC with Auto Differential (07/20/2025 4:19 AM ART DEALER) Only the most recent of2 resultswithin the time period is included. WBC 5.37 4.00 - 12.00 10(3)/mcL 07/20/2025 4:27 AM [facility] RBC 4.93 4.40 - 5.80 10(6)/mcL 07/20/2025 4:27 AM [facility] HEMOGLOBIN (HGB) 15.5 13.0 - 16.5 g/dL 07/20/2025 4:27 AM [facility] HEMATOCRIT (HCT) 41.5 38.0 - 50.0 % 07/20/2025 4:27 AM [facility] MCV 84.2 82.0 - 96.0 fL 07/20/2025 4:27 AM [facility] MCH 31.4 26.0 - 32.0 pg 07/20/2025 4:27 AM [facility] MCHC 37.3(H) 31.0 - 36.0 g/dL 07/20/2025 4:27 AM [facility] PLATELET COUNT 142 140 - 440 10(3)/[facility] 07/20/2025 4:27 AM [facility] RDW 12.4 11.8 - 15.5 % 07/20/2025 4:27 AM [facility] MPV 10.6 8.0 - 12.6 fL 07/20/2025 4:27 AM [facility] NEUTROPHILS 66.8 40.0 - 68.0 % 07/20/2025 4:27 AM [facility] LYMPHOCYTES 19.6 19.0 - 49.0 % 07/20/2025 4:27 AM [facility] MONOCYTES 8.2 3.0 - 13.0 % 07/20/2025 4:27 AM [facility] EOSINOPHILS 4.3 0.0 - 8.0 % 07/20/2025 4:27 AM [facility] BASOPHILS 0.9 0.0 - 1.0 % 07/20/2025 4:27 AM [facility] IMMATURE GRANULOCYTE 0.2 0.0 - 0.4 % 07/20/2025 4:27 AM [facility] ABSOLUTE NEUTROPHILS 3.59 1.40 - 5.30 10(3)/[facility] 07/20/2025 4:27 AM ART DEALER [facility] ABSOLUTE LYMPHOCYTES 1.05 0.90 - 3.30 10(3)/[facility] 07/20/2025 4:27 AM ART DEALER [facility] ABSOLUTE MONOCYTES 0.44 0.10 - 0.90 10(3)/[facility] 07/20/2025 4:27 AM ART DEALER [facility] ABSOLUTE EOSINOPHIL 0.23 0.00 - 0.50 10(3)/[facility] 07/20/2025 4:27 AM ART DEALER [facility] ABSOLUTE BASOPHILS 0.05 0.00 - 0.10 10(3)/[facility] 07/20/2025 4:27 AM ART DEALER [facility] ABSOLUTE IMMATURE GRANULOCYTE 0.01 0.00 - 0.03 10 (3) [facility]. 07/20/2025 4:27 AM ART DEALER [facility] NRBC PER 100 WBC 0 07/20/20 4:27 AM ART DEALER [facility] Blood Venipuncture / Unknown 07/20/2025 4:19 AM ART DEALER 07/20/2025 4:25 AM ART DEALER us Kp Schuler DO HEMATOLOGY ORDERABLES F inal Result [facility] [address] [place] [address] * Lipase (07/20/2025 4:19 AM ART DEALER) LIPASE 43 8 - 78 U/L 07/20/2025 4:47 AM ART DEALER [facility] Blood Venipuncture / Unknown 07/20/2025 4:19 AM ART DEALER 07/20/2025 4:25 AM ART DEALER us Kp Schuler DO CHEMISTRY ORDERABLES Fi nal Result [facility] [address] [place] [address] * (ABNORMAL) CMP (Comprehensive Metabolic Panel) (07/20/2025 4:19 AM ART DEALER) Only the most recent of3 resultswithin the time period is included. SODIUM 140 136 - 145 mmol/L 07/20/2025 4:47 AM [facility] POTASSIUM 4.2 3.5 - 5.1 mmol/L 07/20/2025 4:47 AM [facility] CHLORIDE 110(H) 98 - 107 mmol/L 07/20/2025 4:47 AM [facility] CO2, VENOUS 22 22 - 30 mmol/L 07/20/2025 4:47 AM [facility] ANION GAP 12.2 <18.0 mmol/L 07/20/2025 4:47 AM [facility] GLUCOSE 213(H) 70 - 99 mg/dL 07/20/2025 4:47 AM [facility] BUN 18 8 - 26 mg/dL 07/20/2025 4:47 AM [facility] CREATININE, BLOOD 1.03 0.70 - 1.30 mg/dL 07/20/2025 4:47 AM [facility] BUN/CREATININE RATIO 17 12 - 20 ratio 07/20/2025 4:47 AM [facility] TOTAL PROTEIN 6.5 6.0 - 8.0 g/dL 07/20/2025 4:47 AM [facility] ALBUMIN 4.3 3.5 - 5.0 g/dL 07/20/2025 4:47 AM [facility] A/G RATIO 2.0 1.0 - 2.2 07/20/2025 4:47 AM [facility] CALCIUM 8.9 8.7 - 10.5 mg/dL 07/20/2025 4:47 AM [facility] T BILI 1.1 0.2 - 1.2 mg/dL 07/20/2025 4:47 AM ART DEALER [facility] SGOT (AST) 24 <43 U/L 07/20/2025 4:47 AM ART DEALER [facility] SGPT (ALT) 31 <56 U/L 07/20/2025 4:47 AM [facility] ALKALINE PHOSPHATASE 42 40 - 150 U/L 07/20/2025 4:47 AM ART DEALER [facility] GFR, ESTIMATED >60 >=60 07/20/2025 4:47 AM ART DEALER [facility] Comment: Creatinine Clearance is the preferred criteria for selecting drug dose adjustments in renally impaired patients. The GFR is provided as additional pertinent clinical information. GFR is reported in mL/min/1.73 sq m. Calculation based on the 2020 Chronic Kidney Disease Epidemiology Collaboration (CKD-EPI) equation refit without adjustment for race. GFR, EST. >60 >=60 4:47 AM [facility] Comment: Creatinine Clearance is the preferred criteria for selecting drug dose adjustments in renally impaired patients. The GFR is provided as additional pertinent clinical information. GFR is reported in mL/min/1.73 sq m. Calculation based on the 2009 Chronic Kidney Disease Epidemiology Collaboration (CKD-EPI). GFR, EST. NONAFRICAN >60 >=60 07/20/2025 4:47 AM [facility] Comment: Creatinine Clearance is the preferred criteria for selecting drug dose adjustments in renally impaired patients. The GFR is provided as additional pertinent clinical information. GFR is reported in mL/min/1.73 sq m. Calculation based on the 2009 Chronic Kidney Disease Epidemiology Collaboration (CKD-EPI). Blood Venipuncture / Unknown 07/20/2025 4:19 AM ART DEALER 07/20/2025 4:25 AM ART DEALER us Kp Schuler DO CHEMISTRY ORDERABLES Fi nal Result [facility] [address] [place] [address] * CT - ABDOMEN/PELVIS (07/20/2025 12:00 AM ART DEALER) Only the most recent of2 resultswithin the time period is included. 07/20/2025 us Provider Scan IMG CT ORDERABLES Final Result SCAN * CT RENAL STONE STUDY (ABDOMEN AND PELVIS W/O CONTRAST) (07/19/2025 11:12 AM ART DEALER) Anatomical Region Laterality Modality Abdomen N/A Computed Tomogra phy 07/19/2025 11:1 2 AM ART DEALER Impressions 07/19/2025 12:32 PM ART DEALER IMPRESSION: No obstructive uropathy. No CT findings to explain the patient's symptoms. Other chronic/incidental findings as noted above, unchanged. Narrative 07/19/2025 12:[address] RENAL STONE STUDY (ABDOMEN AND PELVIS W/O CONTRAST) : 07/19/2025 11:12 AM DICTATING PHYSICIAN: NHI VILCHIS, [facility]. HISTORY: As below. ADDITIONAL TECHNOLOGIST HISTORY: Flank pain, kidney stone suspected, pain in right flank, right abdomen with nausea x several months, worse x 2 months. Hx of HTN TECHNIQUE: Multiple helical axial images were obtained through the abdomen and pelvis without contrast. Multiplanar reformats were performed. Image acquisition performed utilizing automated exposure control (AEC) and iterative reconstruction software in order to lower patient dose. RADIATION DOSE: Radiation dose reduction techniques were employed. CTDIvol: 15.5 mGy. DLP: 859 mGy-cm. COMPARISON: 11/17/2024 FINDINGS: Lung bases: Bibasilar atelectasis/infiltrate. ABDOMEN: Liver: No focal lesion or intrahepatic bile duct dilatation. Exam limited by lack of IV contrast. Gallbladder: Gallstones without evidence for cholecystitis. Spleen: Within normal limits. No evidence for splenomegaly or focal lesion. Pancreas: No focal lesion or pancreatic ductal dilatation. Adrenal glands: No focal nodule. Kidneys: No focal suspicious lesion or obstructive uropathy evident. Abdominal aorta and IVC: Abdominal aorta is normal in caliber. IVC is grossly normal. Retroperitoneum: Normal Mesentery/Peritoneum: Chronic mesenteric fat stranding. Stomach and small bowel: Within normal limits. No evidence for obstruction. PELVIS: Free fluid: No free fluid or fluid collection. Reproductive: Prostatomegaly. Bladder: Concentric wall thickening, uncertain etiology. May represent infectious or inflammatory cystitis of uncertain chronicity. Trabecular hypertrophy not excluded. Lymphadenopathy: No pathologic lymphadenopathy. Colon: Diverticulosis without evidence for diverticulitis. Appendix: Normal caliber and wall thickness. Skeletal structures and soft tissues: Age-appropriate degenerative changes. No suspicious osseous lytic or blastic process. No soft tissue abnormality. Procedure Note Nhi Vilchis MD - 07/19/2025 CT RENAL STONE STUDY (ABDOMEN AND PELVIS W/O CONTRAST) : 07/19/2025 11:12AM DICTATING PHYSICIAN: NHI VILCHIS [facility]. HISTORY: As below. ADDITIONAL TECHNOLOGIST HISTORY: Flank pain, kidney stone suspected, painin right flank, right abdomen with nausea x several months, worse x 2months. Hx of HTN TECHNIQUE: Multiple helical axial images were obtained through the abdomen and pelviswithout contrast. Multiplanar reformats were performed. Image acquisitionperformed utilizing automated exposure control (AEC) and iterativereconstruction software in order to lower patient dose. RADIATION DOSE: Radiation dose reduction techniques were employed.CTDIvol: 15.5 mGy. DLP: 859 mGy-cm. COMPARISON: 11/17/2024 FINDINGS: Lung bases: Bibasilar atelectasis/infiltrate. ABDOMEN: Liver: No focal lesion or intrahepatic bile duct dilatation. Exam limitedby lack of IV contrast. Gallbladder: Gallstones without evidence for cholecystitis. Spleen: Within normal limits. No evidence for splenomegaly or focallesion. Pancreas: No focal lesion or pancreatic ductal dilatation. Adrenal glands: No focal nodule. Kidneys: No focal suspicious lesion or obstructive uropathy evident. Abdominal aorta and IVC: Abdominal aorta is normal in caliber. IVC isgrossly normal. Retroperitoneum: Normal Mesentery/Peritoneum: Chronic mesenteric fat stranding. Stomach and small bowel: Within normal limits. No evidence forobstruction. PELVIS: Free fluid: No free fluid or fluid collection. Reproductive: Prostatomegaly. Bladder: Concentric wall thickening, uncertain etiology. May representinfectious or inflammatory cystitis of uncertain chronicity. Trabecularhypertrophy not excluded. Lymphadenopathy: No pathologic lymphadenopathy. Colon: Diverticulosis without evidence for diverticulitis. Appendix: Normal caliber and wall thickness. Skeletal structures and soft tissues: Age-appropriate degenerativechanges. No suspicious osseous lytic or blastic process. No soft tissueabnormality. IMPRESSION: No obstructive uropathy. No CT findings to explain the patient's symptoms. Other chronic/incidentalfindings as noted above, unchanged. Rachel Dunlap MD IM CT ORDERABLES Final Resul t * (ABNORMAL) UR MICROALBUMIN/CREATININE RATIO RANDOM (07/16/2025 8:15 AM ART DEALER) Pathologist [facility] RAN UR MICROALBUMIN 37.35 mg/dL 07/16/2025 1:36 PM ART DEALER [facility] Comment:No reference range h as been established. Consider Clinical Correlation. CREATININE URINE 108.8 mg/dL 07/16/20 1:36 PM ART DEALER [facility] Comment:No reference range h as been established. Consider Clinical Correlation. ALB/CREAT RATIO 343(H) 0 - 30 mg/g CRE 07/16/2025 1:36 PM ART DEALER [facility] Urine Non-Phlebotomy Collection / Unknown 07/16/2025 8:15 AM ART DEALER 07/16/2025 8:15 AM ART DEALER Kourtney Resendez APRN, CNP URINE ORDERABLE S Final Result [facility] [address] [place] [address] * PSA SCREEN (07/16/2025 8:07 AM ART DEALER) [facility] PSA SCREEN, TOTAL 3.95 <4.00 ng/mL 07/16/2025 2:26 PM ART DEALER [facility] Blood Venipuncture / Unknown 07/16/2025 8:07 AM ART DEALER 07/16/2025 8:08 AM ART DEALER Narrative [facility] - 07/16/2025 2:26 PM ART DEALER The ALINITY Total PSA assay is a Chemiluminescent Microparticle Immunoassay (CMIA) for the quantitative determination of total PSA (both free PSA and PSA complexed to [id number]) in human serum. Total PSA values obtained with different assay methods, including Luciano PSA assays, cannot be used interchangeably. us Nicholas Mishra MD CHEMISTRY ORDERABLES Final Resul t [facility] [address] [place] [address] * (ABNORMAL) LIPID PANEL (07/16/2025 8:07 AM ART DEALER) CHOLESTEROL 87 <200 mg/dL 07/16/2025 1:50 PM ART DEALER [facility] TRIGLYCERIDES 114 <150 mg/dL 07/16/2025 1:50 PM ART DEALER [facility] HDL CHOLESTEROL 25(L) >40 mg/dL 1:50 PM ART DEALER [facility] LDL 39 <130 mg/dL 07/16/2025 1:50 PM ART DEALER [facility] VLDL 23 10 - 50 mg/dL 07/16/2025 1:50 PM ART DEALER [facility] CHOL/HDL RATIO 3.5 0.0 - 4.4 07/16/2025 1:50 PM ART DEALER [facility] NON-HDL CHOLESTEROL 62 <130 mg/dL 07/16/2025 1:50 PM ART DEALER [facility] IS THE PATIENT REQUIRED TO BE FASTING? Yes 07/16/2025 1:50 PM ART DEALER [facility] HAS THE PATIENT BEEN FASTING? Yes 07/16/2025 1:50 PM [facility] Blood Venipuncture / Unknown 07/16/2025 8:07 AM ART DEALER 07/16/2025 8:08 AM ART DEALER Kourtney Resendez APRN, MAGAN CHEMISTRY ORDER RADHAMES Final Result Performing Organization Address City/[facility]/ZIP Co de Phone Number [facility] [address] [place] [address] * HM DILATED EYE EXAM (01/27/2025 12:00 AM CDT) 01/27/2025 Provider Scan PROCEDURE/MINOR SURGICAL ORDERAB LES Final Result SCAN * (ABNORMAL) HEMOGLOBIN A1C W/ ESTIMATED GLUCOSE (12/31/2024 8:00 AM CDT) Pathologist [facility] HGB-A1C 8.8(H) 4.0 - 6.0 % 12/31/2024 1:36 PM CDT [facility] Est Average Glucose 205.9 mg/dL 12/31/2024 1:36 PM CDT [facility] Blood Venipuncture / Unknown 12/31/2024 8:00 AM CDT 12/31/2024 8:00 AM CDT Narrative [facility] - 12/31/2024 1:36 PM CDT HEMOGLOBIN A1C: DIABETIC PATIENTS: WELL-CONTROLLED: 6.2 - 7.0 INTERMEDIATE WELL-CONTROLLED: 7.0 - 9.0 POORLY-CONTROLLED: >9.0 Specimens containing greater than 5% of Hemoglobin F may result in lower than expected % HbA1C results. Kourtney Resendez APRN, CNP CHEMISTRY ORDER RADHAMES Final Result Performing Organization Address City/[facility]/ZIP Co de Phone Number [facility] [address] [place] [address] * HEPATITIS C ANTIBODY (12/18/2023 7:56 AM CDT) hepatitis C antibody 0.11 <1 S/CO 12/18/2023 9:04 PM CDT [facility] Comment: Signal/Cutoff ratio < 0.79 is Nondetected Signal/Cutoff ratio 0.80-0.99 is Grayzone Signal/Cutoff ratio > 0.99 is Detected Supplemental assays are recommended if signal/cutoff ratio is >/=1.00. Signal/cutoff ratio result >/= 5.00 is 97% predictive of positivity for recombinant immunoblot assay (RIBA) and will be reported to the [place] Department of Public Health as required. Blood Venipuncture / Unknown 12/18/2023 7:56 AM CDT 12/18/2023 7:56 AM CDT Kourtney Resendez APRN, CNP CHEMISTRY ORDER RADHAMES Final Result [facility] [address] [place] [address], * GI IMAGING - COLONOSCOPY (04/24/2023 6:21 AM CDT) Yaritza Alanis MD IMG DIAGNOSTIC ORDERABLES Final Result from Last 3 Months or Most Recently Relevant to Health Maintenance Additional Health Concerns Active Problems Noted Date Diagnosed Date [facility] HYPERTENSION CONCERN (P ATIENT ON HIGH BLOOD PRESSURE MEDICATIONS) 12/15/2022 [facility] NICOTINE DEPENDENCY CONCERN 12/15/2022 Insurance [facility] Advance Directives Documents on File Type Date Recorded 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 PRE-ARREST: Use entire range of life support measures to stabilize the patient. * Full Code Date Activated Date Inactivated Comments 08/21/2019 6:02 PM 08/22/2019 4:09 PM CPR-Full T reatment: FULL ARREST: Attempt Resuscitation/CPR wit intubation and mechanical ventilation. PRE-ARREST: Use entire range of life support measures to stabilize the patient. * Full Code Date Activated Date Inactivated Comments 08/15/2019 12:32 PM 08/15/2019 7:49 PM CPR-Full Treatment: FULL ARREST: Attempt Resuscitation/CPR wit intubation and mechanical ventilation. PRE-ARREST: Use entire range of life support measures to stabilize the patient. * Full Code Date Activated Date Inactivated Comments 03/28/2019 12:36 PM 03/29/2019 2:45 PM CPR-Full Tr eatment: FULL ARREST: Attempt Resuscitation/CPR wit intubation and mechanical ventilation. PRE-ARREST: Use entire range of life support measures to stabilize the patient. Care Teams Wearing Apparel Shaker Relationship Specialty Start Date End Date Kourtney Resendez APRN, SPLUNK DEVELOPER [address] [place] [address] PCP - General Advanced Practice Nurse 10/19/17 Royal Salinas MD [address] [facility] [address] [place] [address] Consulting Physician General Surgery 02/06/23 Nicholas Mishra MD [address] [facility] [address] [place] [address] Consulting Physician Urological Surgery 02/14/23 Jany De La Torre APRN, GLOVE PRESSER [address] [place] [address] Nurse Practitioner Advanced Practice Nurse 05/23/22 Tayler Garrett APRN, SPLUNK DEVELOPER [address] [place] [address] Nurse Practitioner Advanced Practice Nurse 12/13/22
--- OUTSIDE RECORDS SUMMARY | 2025-07-24 07:34 | XMS_ITS | Encounter Summary ---
Author Organization [facility] Address [address] [place] [address] Phone Care Team Providers Care Sales Planner Name Role Phone Kourtney Resendez APRN, CHANNEL LIP STIFFENER INSOLES Primary Care P rojoyder Royal Salinas MD Unavailable Nicholas Mishra MD Unavailable Jany De La Torre APRN, [facility] Unavailable [phone]- [phone] Tayler Garrett APRN, CHANNEL LIP STIFFENER INSOLES Unavailable Reason for Visit * Reason Comments Medication Refill Encounter Details Date Type Department Care Team (Late st Contact Info) Description 01/12/2025 Refill [facility] - Primary Care - Faby [address] [place] [address] Kourtney Resendez APRN, CHANNEL LIP STIFFENER INSOLES [address] [place] [address] Medication Refill Social History Tobacco Use Types Packs/Day Years Used Date Smoking Tobacco: Never Smokeless Tobacco: Never Alcohol Use Standard Drinks/Week Comments Yes 0 (1 standard drink = 0.6 oz pur e alcohol) Occasionally 2 drinks [facility] Utilities Answer Date Recorded In the [...] declined 11/20/2024 How often do you attend yarsani or roman catholic serv ices? Patient declined 11/20/2024 Do you belong to any clubs o r organizations such as yarsani groups, unions, fraternal or athletic groups, or [...] Total Score - Questions 1-9 0 11/02 [facility] of Occupat ional Health - Occupational [...] any time in the past 12 m [facility], were you homeless or living in a chcf (including now)? Patient declined 11/20/2024 Education Answer [...] st Contact Info) Description 08/05/2025 11:00 AM WELT RANDER Office Visit [facility] [address] [place] [address] Nicholas Mishra MD [address], [address] [place] [address] 10/20/2025 3:30 PM WELT RANDER Office Visit [facility] - Primary Care - Faby [address] [place] [phone] HuelsKourtney guardado APRN, CHANNEL LIP STIFFENER INSOLES [address] [place] [address] documented as of this encounter Goals Goal Patient Goal Type Associated Problems Recent Progress Patient-Stated? Author Help patient manage hypertension Care Plan [facility] HYPERTENSION CONCERN (PATIENT ON HIGH BLOOD PRESSURE MEDICATIONS) No Kourtney Pineda APRN, MAGAN Help patient manage nicotine dependency Care Plan [facility] NICOTINE DEPENDENCY CONCERN No Kourtney Pineda APRN, CHANNEL LIP STIFFENER INSOLES documented as of this encounter Visit Diagnoses Diagnosis Anxiety and depression Dysthymic disorder Type 2 diabetes mellitus with diabetic nephropathy, with long-term current use of insulin documented in this encounter Additional Health Concerns Active Problems Noted Date Diagnosed Date [facility] HYPERTENSION CONCERN (P ATIENT ON HIGH BLOOD PRESSURE MEDICATIONS) 12/15/2022 [facility] NICOTINE DEPENDENCY CONCERN 12/15/2022 Assessment Noted Time PHQ-9 Depression Total Score: 0 11/21/19 25 11:28 AM CDT documented as of this encounter Care Teams Sales Planner Relationship Specialty Start Date End Date Kourtney Resendez APRN, CHANNEL LIP STIFFENER INSOLES [address] [place] [address] PCP - General Advanced Practice Nurse 10/19/17 Royal Salinas MD #2 [facility] [address] [place] [address] Consulting Physician General Surgery 02/06/23 Nicholas Mishra MD #2 [facility] [address] [place] [address] Consulting Physician Urological Surgery 02/14/23 Jany De La Torre APRN, NEWS SPECIALIST [address] [place] [address] Nurse Practitioner Advanced Practice Nurse 05/23/22 Tayler Garrett APRN, CHANNEL LIP STIFFENER INSOLES [address] [place] [address] Nurse Practitioner Advanced Practice Nurse 12/13/22 documented as of this encounter
--- OUTSIDE RECORDS SUMMARY | 2025-07-24 07:34 | XMS_ITS | Encounter Summary ---
Author Organization [facility] Address [address] [place] [address] Phone Care Team Providers Care Convention Manager Name Role Phone Troy Batres MD Unavailable Kourtney Resendez APRN, SHIPMASTER Primary Care P rovider Royal Salinas MD Unavailable [phone]- [phone] Nicholas Mishra MD Unavailable Jany De La Torre APRN, [facility] Unavailable + [phone] Tayler Garrett APRN, SHIPMASTER Unavailable Reason for Visit * Reason Comments Medication Refill Encounter Details Date Type Department Care Team (Late st Contact Info) Description 11/10/2023 Refill [facility] - Primary Care - Faby [address] [place] [address] Kourtney Resendez APRN, SHIPMASTER [address] [place] [address] Medication Refill Social History Tobacco [...] Telephone Encounter - Pilo Flowers RN - 11/12/2023 9:47 AM CDT Duplicate Request documented in this encounter Plan of Treatment Upcoming Encounters Date Type Department Care Team (Late st Contact Info) Description 08/05/2025 11:00 AM TEACHER Office Visit [facility] [address] [place] [address] Nicholas Mishra MD #[address] [address] 10/20/2025 3:30 PM TEACHER Office Visit [facility] - Primary Care - Faby [address] [place] [phone] Kourtney Resendez APRN, SHIPMASTER [address] [place], [place] [phone] documented as of this encounter Goals Goal Patient Goal Type Associated Problems Recent Progress Patient-Stated? Author Help patient manage hypertension Care Plan [facility] HYPERTENSION CONCERN (PATIENT ON HIGH BLOOD PRESSURE MEDICATIONS) No Kourtney Pineda APRN, SHIPMASTER Help patient manage nicotine dependency Care Plan [facility] NICOTINE DEPENDENCY CONCERN No Kourtney Pineda APRN, SHIPMASTER documented as of this encounter Visit Diagnoses Diagnosis Type 2 diabetes mellitus with diabetic nephropathy, with long-term current use of insulin documented in this encounter Additional Health Concerns Active Problems Noted Date Diagnosed Date [facility] HYPERT[facility]CERN (P ATIENT ON HIGH BLOOD PRESSURE MEDICATIONS) 12/15/2022 [facility] NICOTINE DEPENDENCY CONCERN 12/15/2022 Assessment Noted Time PHQ-9 Depression Total Score: 0 04/25/20 21 3:00 PM CDT documented as of this encounter Care Teams Convention Manager Relationship Specialty Start Date End Date Kourtney Resendez APRN, SHIPMASTER [address] [place] [address] PCP - General Advanced Practice Nurse 10/19/17 Troy Batres MD [address] [place] [phone] Consulting Physician Pulmonary Disease 04/03/17 Royal Salinas MD #[address] [address] Consulting Physician General Surgery 02/06/23 Nicholas Mishra MD #[address] [address] Consulting Physician Urological Surgery 02/14/23 Jany De La Torre APRN, SUBWAY OPERATOR [address] [place] [address] Nurse Practitioner Advanced Practice Nurse 05/23/22 Tayler Garrett APRN, SHIPMASTER [address] [place] [address] Nurse Practitioner Advanced Practice Nurse 12/13/22 documented as of this encounter
--- OUTSIDE RECORDS SUMMARY | 2025-07-24 07:34 | XMS_ITS | Encounter Summary ---
Author Organization [facility] Address [address] [place] [address] Care Team Providers Care Hematology Specialist Name Role Phone Kourtney Resendez NP Primary Care Provide r Encounter Details Date Type Department Care Team (Late st Contact Info) Description 04/18/2019 Telephone [facility] [address] [place] [address] Sage Hernandez MD [address] [facility] [place] [address] Social History Tobacco Use Types Packs/Day Years Used Date Smoking Tobacco: Never Sex and Gender Information Value Date Recorded Sex Assigned at Not on file Legal Sex Male 4:37 PM SHIPPING WEIGHER Gender Identity Not on file Sexual Orientation Not on file documented as of this encounter Functional Status * Question Answer Date of Assessment Author MAP (mmHg) 104 04/21/2019 11:18 AM CDT Yaneli Yoon RN * In the past year, patient experienced: Question Answer Date of Assessment Author One or more falls in the last year No 2018 9:39 AM GLENNAT Briana Patel RN Has trouble stepping up onto a curb No 04/21 9:39 AM Briana Juan RN Advised to use a cane or wal ker to get around safely No 04/21/2019 9:39 AM Briana Juan RN Often has to urbina to the toilet No 9:39 AM Briana Juan RN Feels unsteady when walking Yes 04/21/2019 9: 39 AM Briana Juan RN Has lost some feeling in feet No 04/21/2019 9:39 AM Briana Juan RN Steadies self on furniture w hile walking at home Yes 04/21/2019 9:39 AM Briana Juan RN Takes medicine that makes hi m/her feel lightheaded or more tired than usual Yes 04/21/2019 9:39 AM Briana Juan RN Worried about falling Yes 04/21/2019 9:39 AM Briana Juan RN Takes medicine to sleep or i mprove mood Yes 04/21/2019 9:39 AM Briana Juan RN Needs to push with hands whe n rising from a chair Yes 04/21/2019 9:39 AM Briana Juan RN Often feels sad or depressed No 04/21/2019 9 :39 AM Braina Juan RN * Dumont Fall Risk Question Answer Date of Assessment Author History of Falling 0 04/21/2019 11:00 AM Arelis Garza, MARIAM Secondary Diagnosis 0 04/21/2019 11:00 AM Arelis Naranjo, hoop punch operator helper Aids 0 04/21/2019 11:00 AM Arelis Alanis, MARIAM Intravenous Therapy/Heparin/ Saline Lock 0 04/21/2019 11:00 AM Arelis Ivy, MARIAM Gait/Transferring 0 04/21/2019 11:00 AM Arelis Ivy, RN Mental Status 0 04/21/2019 11:00 AM Arelis Laguna, RN * Fall Risk Interventions Question Answer Date of Assessment Author All Low Fall Interventions Applied Yes 2018 11:00 AM Arelis Ivy, RN * Fall Risk Interventions Question Answer Date of Assessment Author All Low Fall Interventions Applied Yes 2018 11:00 AM CDT Arelis Rodríguez RN documented as of this encounter Plan of Treatment Not on file documented as of this encounter Goals Goal Patient Goal Type Associated Problems Recent Progress Patient-Stated? Author CCM Chronic Pain Care Plan Chronic Care Management No Alejandra Llanos RN Note: Problem: Chronic Pain Goals: 1. Minimize further functional decline 2. Maximize quality of life 3. Control pain Strategies: - Activity/exercise program recommendation - Conservative stepwise pain medicine strategy with multi-disciplinary approach - Recommend healthy lifestyle strategies and compensatory methods as needed Reduce the likelihood of falling Lifestyle No Briana Patel RN Note: Below are four things you [...] stairs Contact your local community or [facility] [place] for information on exercise, fall prevention programs, or options for improving home safety. documented as of this encounter Visit Diagnoses Not on filedocumented in this encounter Care Teams Hematology Specialist Relationship Specialty Start Date End Date Kourtney Resendez NP [address] [place] [address] PCP - General Emergency Medicine 03/17/19 documented as of this encounter
--- OUTSIDE RECORDS SUMMARY | 2025-07-24 07:34 | XMS_ITS | Encounter Summary ---
Author Organization [facility] Address [address] [place] [address] Phone Care Team Providers Care Entry Level Marketing Assistant Name Role Phone Troy Batres MD Unavailable Kourtney Resendez APRN, REWEAVER Primary Care P rovider Royal Salinas MD Unavailable [phone]- [phone] Nicholas Mishra MD Unavailable Jany De La Torre APRN, [facility] Unavailable + [phone] Tayler Garrett APRN, REWEAVER Unavailable Reason for Visit * Reason Comments Medication Refill Encounter Details Date Type Department Care Team (Late st Contact Info) Description 01/11/2024 Refill [facility] - Primary Care - Faby [address] [place] [address] Kourtney Resendez APRN, REWEAVER [address] [place] [address] Medication Refill Social History Tobacco [...] Telephone Encounter - Pilo Flowers RN - 01/11/2024 2:09 PM CDT Duplicate Request documented in this encounter Plan of Treatment Upcoming Encounters Date Type Department Care Team (Late st Contact Info) Description 08/05/2025 11:00 AM SWEAT BAND SEWER Office Visit [facility] [address] [place] [address] Nicholas Mishra MD #[address] [address] 10/20/2025 3:30 PM SWEAT BAND SEWER Office Visit [facility] - Primary Care - Faby [address] [place] [phone] Kourtney Resendez APRN, REWEAVER [address] [place] [address] documented as of this encounter Goals Goal Patient Goal Type Associated Problems Recent Progress Patient-Stated? Author Help patient manage hypertension Care Plan [facility] HYPERTENSION CONCERN (PATIENT ON HIGH BLOOD PRESSURE MEDICATIONS) No Kourtney Pineda APRN, REWEAVER Help patient manage nicotine dependency Care Plan [facility] NICOTINE DEPENDENCY CONCERN No Kourtney Pineda APRN, REWEAVER documented as of this encounter Visit Diagnoses Diagnosis Insomnia, unspecified type documented in this encounter Additional Health Concerns Active Problems Noted Date Diagnosed Date [facility] HYPERTENSION CONCERN (P ATIENT ON HIGH BLOOD PRESSURE MEDICATIONS) 12/15/2022 [facility] NICOTINE DEPENDENCY CONCERN 12/15/2022 Assessment Noted Time PHQ-9 Depression Total Score: 0 04/25/20 21 3:00 PM CDT documented as of this encounter Care Teams Entry Level Marketing Assistant Relationship Specialty Start Date End Date Kourtney Resendez APRN, REWEAVER [address] [place] [address] PCP - General Advanced Practice Nurse 10/19/17 Troy Batres MD #[address] [place] [address] Consulting Physician Pulmonary Disease 04/03/17 Royal Salinas MD #[address] [address] Consulting Physician General Surgery 02/06/23 Nicholas Mishra MD #[address] [address] Consulting Physician Urological Surgery 02/14/23 Jany De La Torre APRN, TRACK LAYER [address] [place] [address] Nurse Practitioner Advanced Practice Nurse 05/23/22 Tayler Garrett APRN, REWEAVER [address] [place] [address] Nurse Practitioner Advanced Practice Nurse 12/13/22 documented as of this encounter
--- OUTSIDE RECORDS SUMMARY | 2025-07-24 07:34 | XMS_ITS | Encounter Summary ---
Author Organization [facility] Address [address] [place] [address] Phone Care Team Providers Care Semiconductor Lab Technician Name Role Phone Kourntey Resendez APRN, RUG DESIGNER Primary Care P sarah Royal Salinas MD Unavailable Nicholas Mishra MD Unavailable Jany De La Torre APRN, POKER MACHINE ATTENDANT Unavailable [phone]- [phone] Tayler Garrett APRN, RUG DESIGNER Unavailable Encounter Details Date Type Department Care Team (Late st Contact Info) Description 12/24/2024 [facility] [address] [place] [address] Alejandra Vásquez, TOW MOTOR MECHANIC, RUG DESIGNER [address] [place] [address] Type 2 diabetes mellitus without complication, with long-term current use of insulin (Primary Dx); Hypertension associated with type 2 diabetes mellitus (HCC); Hyperlipidemia associated with type 2 diabetes mellitus (HCC) Social History Tobacco Use Types Packs/Day Years Used Date Smoking Tobacco: Never Smokeless Tobacco: Never Alcohol Use Standard Drinks/Week Comments Yes 0 (1 standard drink = 0.6 oz pur e alcohol) Occasionally 2 drinks [facility] Utilities Answer Date Recorded In the past [...] declined 11/20/2024 How often do you attend gnosticism or oriental orthodox serv ices? Patient declined 11/20/2024 Do you belong to any clubs o r organizations such as gnosticism groups, unions, fraternal or athletic groups, or [...] Total Score - Questions 1-9 0 11/02 [facility] of Occupat ional Health - Occupational Stress [...] any time in the past 12 m [facility], were you homeless or living in a longterm (including now)? Patient declined 11/20/2024 Education Answer [...] st Contact Info) Description 08/05/2025 11:00 AM TARGET SETTER Office Visit [facility] [address] [place] [address] Nicholas Mishra MD #[address], [place] [address] [place] [address] 10/20/2025 3:30 PM TARGET SETTER Office Visit [facility] - Primary Care - Faby [address] [place] [phone] Kourtney Resendez APRN, CNP [address] [place] [address] documented as of this encounter Goals Goal Patient Goal Type Associated Problems Recent Progress Patient-Stated? Author Help patient manage hypertension Care Plan [facility] HYPERTENSION CONCERN (PATIENT ON HIGH BLOOD PRESSURE MEDICATIONS) No Kourtney Pineda APRN, CNP Help patient manage nicotine dependency Care Plan [facility] NICOTINE DEPENDENCY CONCERN No Kourtney Pineda APRN, CNP documented as of this encounter Results * (ABNORMAL) UR MICROALBUMIN/CREATININE RATIO RANDOM (12/31/2024 8:02 AM CDT) RAN UR MICROALBUMIN 41.18 mg/dL 12/31/2024 1:35 PM CDT [facility] Comment:No reference range h as been established. Consider Clinical Correlation. CREATININE URINE 97.7 mg/dL 01/01/20 1:35 PM CDT [facility] Comment:No reference range h as been established. Consider Clinical Correlation. ALB/CREAT RATIO 421(H) 0 - 30 mg/g CRE 12/31/2024 1:35 PM CDT [email or web address] Urine Non-Phlebotomy Collection / Unknown 12/31/2024 8:02 AM CDT 12/31/2024 8:02 AM CDT us Alejandra Vásquez APRN, CNP URINE ORDERABLES Final Re sult [facility] [address] [place] [address] documented in this encounter Visit Diagnoses Diagnosis Type 2 diabetes mellitus without complication, with long-term current use of insulin- Primary Hypertension associated with type 2 diabetes mellitus Hyperlipidemia associated with type 2 diabetes mellitus documented in this encounter Additional Health Concerns Active Problems Noted Date Diagnosed Date [facility] HYPERTENSION CONCERN (P ATIENT ON HIGH BLOOD PRESSURE MEDICATIONS) 12/15/2022 [facility] NICOTINE DEPENDENCY CONCERN 12/15/2022 Assessment Noted Time PHQ-9 Depression Total Score: 0 11/21/19 25 11:28 AM CDT documented as of this encounter Care Teams Semiconductor Lab Technician Relationship Specialty Start Date End Date Kourtney Resendez APRN, RUG DESIGNER [address] [place] [address] PCP - General Advanced Practice Nurse 10/19/17 Royal Salinas MD #2 [facility] [address] [place] [address] Consulting Physician General Surgery 02/06/23 Nicholas Mishra MD #2 [facility] [address] [place] [address] Consulting Physician Urological Surgery 02/14/23 Jany De La Torre APRN, POKER MACHINE ATTENDANT #[address] [place] [address] Nurse Practitioner Advanced Practice Nurse 05/23/22 Tayler Garrett APRN, RUG DESIGNER #[address] [place] [address] Nurse Practitioner Advanced Practice Nurse 12/13/22 documented as of this encounter
--- NOTE | 2025-07-24 07:42 | ED.GENADULT ---
HPI - General Adult General Chief complaint: Skin/Abscess/Foreign Body Stated complaint: R 3rd digit cut Time Seen by Provider: 07/24/25 07:06 History of Present Illness HPI narrative: Patient is a 64-year-old male who presents the ER with laceration to the palmar aspect of his right 3rd digit and 4th digit at the distal phalanx. Fourth digit is unremarkable but 3rd digit with 2 cm laceration with bleeding controlled. No numbness or tingling. Brisk capillary refill. He cut his finger on a metal screen in a sink and got dirty water into the wound. He did apply some anti septic prior to coming to the ER. Related Data Home Medications ?Medication ?Instructions ?Recorded ?Confirmed ?Last Taken ?Type amlodipine 10 mg tablet 10 mg PO DAILY 06/16/23 11/21/23 Unknown History atorvastatin 80 mg tablet 80 mg PO DAILY 06/16/23 11/21/23 Unknown History empagliflozin 25 mg tablet 25 mg PO DAILY 06/16/23 11/21/23 Unknown History (Jardiance) hydrochlorothiazide 25 mg tablet 25 mg PO DAILY 06/16/23 11/21/23 Unknown History losartan 100 mg tablet 100 mg PO DAILY 06/16/23 11/21/23 Unknown History omeprazole 20 mg capsule,delayed 20 mg PO DAILY 06/16/23 11/21/23 Unknown History release sertraline 50 mg tablet 50 mg PO DAILY 06/16/23 11/21/23 Unknown History tamsulosin 0.4 mg capsule 0.4 mg PO DAILY 06/16/23 11/21/23 Unknown History fenofibrate 160 mg tablet 160 mg PO DAILY 11/21/23 11/21/23 Unknown History metformin 1,000 mg tablet 1,000 mg PO BID 11/21/23 11/21/23 Unknown History rosuvastatin 20 mg tablet 20 mg PO DAILY 11/21/23 11/21/23 Unknown History temazepam 30 mg capsule 30 mg PO DAILY 11/21/23 11/21/23 Unknown History Allergies Allergy/AdvReac Type Severity Reaction Status Date / Time niacin AdvReac Unknown Rash Verified 07/24/25 07:03 Review of Systems Review of Systems: All systems reviewed & are unremarkable except as noted in HPI and below Constitutional: Constitutional: Reports no additional constitutional complaints Musculoskeletal: Musculoskeletal: Reports no additional musculoskeletal complaints Integumentary/Breasts: Skin/Breast: Reports system reviewed and no additional complaints, except as docu Neurologic: Reports system reviewed and no additional complaints, except as documented PMFSH Past Medical History Medical History (Updated 07/24/25 @ 07:59 by Errol Byrnes MD) Diabetes H/O gastroesophageal reflux (GERD) History of high cholesterol History of high blood pressure Exam Narrative: GENERAL: Well-appearing, well-nourished, and in no acute distress. HEAD: Normocephalic, atraumatic. ENT: Mucous membranes moist. HEART: Regular rate and rhythm. Normal peripheral pulses. EXTREMITIES: Normal range of motion. No edema. SKIN: Warm, dry, no rash. 2 cm superficial laceration distal phalanx right 3rd digit, palmar aspect. NEURO: Alert and oriented x3. PSYCH: Normal mood and affect. Course Course Emergency Course: Tolerated repair. Tetanus updated. Discharge. Vital Signs Vital signs: Vital Signs Temperature 98.3 F 07/24/25 06:57 Pulse Rate 74 07/24/25 06:57 Respiratory Rate 14 07/24/25 06:57 Blood Pressure 160/83 H 07/24/25 06:57 Pulse Oximetry 96 07/24/25 06:57 Oxygen Delivery Room Air 07/24/25 06:57 Temperature 98.3 F 07/24/25 07:04 Pulse Rate 74 07/24/25 07:04 Respiratory Rate 14 07/24/25 07:04 Blood Pressure 160/83 H 07/24/25 07:04 Pulse Oximetry 96 07/24/25 06:57 Oxygen Delivery Room Air 07/24/25 06:57 Procedures Laceration Laceration 1: Date: 07/24/25 Time: 07:48 Site: other (3rd digit) Side (If applicable): right Size (cm): 2 Description: linear Depth: simple, single layer Local Anesthetic: lidocaine 1% and with epi Amount of anesthesia used (mL): 1.5 Pre-repair: wound explored and irrigated ====== Skin Level ====== Skin layer closed with: nylon Size (cm): 5-0 Number of sutures: 4 Technique: simple, interrupted ====== Subcutaneous Layer ====== ====== Muscle Layer ====== ====== Tendon Layer ====== Medical Decision Making Differential Diagnosis Differential Diagnosis: Fracture, laceration, tetanus exposure, foreign body Vital Signs Vital Signs: Vital Signs Temperature 98.3 F 07/24/25 06:57 Pulse Rate 74 07/24/25 06:57 Respiratory Rate 14 07/24/25 06:57 Blood Pressure 160/83 H 07/24/25 06:57 Pulse Oximetry 96 07/24/25 06:57 Oxygen Delivery Room Air 07/24/25 06:57 Temperature 98.3 F 07/24/25 07:04 Pulse Rate 74 07/24/25 07:04 Respiratory Rate 14 07/24/25 07:04 Blood Pressure 160/83 H 07/24/25 07:04 Pulse Oximetry 96 07/24/25 06:57 Oxygen Delivery Room Air 07/24/25 06:57 Discharge Plan Discharge Clinical Impression: Finger laceration Patient Disposition: Home Condition: Stable Instructions: Finger Laceration (ED) Additional Instructions: Remove your sutures on 08/07/2025. Return ER if your fingers red and hot, pus is draining from her wound, or you have additional concerns. Patient Language: Maori Prescriptions: No Action atorvastatin 80 mg tablet 80 mg PO DAILY tamsulosin 0.4 mg capsule 0.4 mg PO DAILY amlodipine 10 mg tablet 10 mg PO DAILY omeprazole 20 mg capsule,delayed release(DR/EC) 20 mg PO DAILY hydrochlorothiazide 25 mg tablet 25 mg PO DAILY losartan 100 mg tablet 100 mg PO DAILY sertraline 50 mg tablet 50 mg PO DAILY Jardiance 25 mg tablet 25 mg PO DAILY metformin 1,000 mg tablet 1,000 mg PO BID temazepam 30 mg capsule 30 mg PO DAILY rosuvastatin 20 mg tablet 20 mg PO DAILY fenofibrate 160 mg tablet 160 mg PO DAILY methylprednisolone [Medrol (Pablo)] 4 mg tablets,dose pack See Rx Instructions .ROUTE .COMPLEX Qty: 21 0RF Rx Instructions: orally per package directions Follow-up/Referrals: Tayler Cross DO [Physician, Family Practice] - 2 Weeks UNKNOWN,DOCTOR [Non-Staff] Stand Alone Forms: Work/School Release IP
[2025-07-24] MEDS: LIDO 1%/EPINEPHRINE 1:100,000 20 ML VIAL INFILTRATE (07:49)
[2025-07-24] MEDS: TETANUS,DIPHTHERIA,AC PERTUSSIS ADULT (0.5 ML) BOOSTRIX IM (08:08)
== END 2025-07-24 08:27 | disposition home or self-care (01) ==
PROVIDERS: Emergency Provider Emergency Medicine
DX: S61.212A Laceration without foreign body of right middle finger without damage to nail, initial encounter (principal); E11.9 Type 2 diabetes mellitus without complications; W45.8XXA Other foreign body or object entering through skin, initial encounter; Z23 Encounter for immunization
CPT/HCPCS: 12001; 90471; 90715; 99282; J2004

== ENCOUNTER 2025-08-12 12:20 | Emergency (ER) | payer OTHER, SELFPAY ==
--- NOTE | 2025-08-12 12:22 | ED.GENADULT ---
HPI - General Adult General Chief complaint: Wound/Laceration Stated complaint: Right Hand Wound Check Time Seen by Provider: 08/12/25 12:22 Source: patient Mode of arrival: ambulatory Limitations: no limitations History of Present Illness HPI narrative: Pt is a 65 y/o male presenting with c/o wound check to the R. 3rd finger. Reports sutured laceration to that digit approximately 3 weeks ago, had sutures removed 5 days ago. States over the last few days, he has noticed increased swelling, tenderness to the palmar aspect of the distal phalanx of the R 3rd finger. Denies constitutional sx. No tx initiated [employer]. No additional complaints. Related Data Home Medications ?Medication ?Instructions ?Recorded ?Confirmed ?Last Taken ?Type amlodipine 10 mg tablet 10 mg PO DAILY 06/16/23 11/21/23 Unknown History atorvastatin 80 mg tablet 80 mg PO DAILY 06/16/23 11/21/23 Unknown History empagliflozin 25 mg tablet 25 mg PO DAILY 06/16/23 11/21/23 Unknown History (Jardiance) hydrochlorothiazide 25 mg tablet 25 mg PO DAILY 06/16/23 11/21/23 Unknown History losartan 100 mg tablet 100 mg PO DAILY 06/16/23 11/21/23 Unknown History omeprazole 20 mg capsule,delayed 20 mg PO DAILY 06/16/23 11/21/23 Unknown History release sertraline 50 mg tablet 50 mg PO DAILY 06/16/23 11/21/23 Unknown History tamsulosin 0.4 mg capsule 0.4 mg PO DAILY 06/16/23 11/21/23 Unknown History fenofibrate 160 mg tablet 160 mg PO DAILY 11/21/23 11/21/23 Unknown History metformin 1,000 mg tablet 1,000 mg PO BID 11/21/23 11/21/23 Unknown History rosuvastatin 20 mg tablet 20 mg PO DAILY 11/21/23 11/21/23 Unknown History temazepam 30 mg capsule 30 mg PO DAILY 11/21/23 11/21/23 Unknown History Allergies Allergy/AdvReac Type Severity Reaction Status Date / Time niacin AdvReac Unknown Rash Verified 08/12/25 12:23 Review of Systems Review of Systems: CONSTITUTIONAL: Denies body aches, fever, chills, or sweats. EYES: Denies visual changes, redness, or discharge. ENT: Denies rhinorrhea, congestion, sore throat, or otalgia. CARDIOVASCULAR: Denies chest pain, palpitations, or edema. RESPIRATORY: Denies cough or dyspnea. GASTROINTESTINAL: Denies abdominal pain, nausea, vomiting, or diarrhea. GENITOURINARY: Denies dysuria or hematuria. SKIN: Reports tenderness, swelling to R. 3rd finger. Denies rash, itching, drainage. MUSCULOSKELETAL: Denies back pain, joint pain, or myalgia. NEUROLOGIC: Denies headache, numbness, tingling, or weakness. PSYCH: Denies depression or anxiety. All systems reviewed & are unremarkable except as noted in HPI and below PMFSH Past Medical History Medical History (Updated 08/12/25 @ 12:43 by Preet Lua, JAMAR) Diabetes H/O gastroesophageal reflux (GERD) History of high cholesterol History of high blood pressure Exam Narrative: GENERAL: Well-appearing, well-nourished, and in no acute distress. HEAD: Normocephalic, atraumatic. EYES: EOMI. No redness or drainage. Conjunctivae normal. ENT: Mucous membranes pink and moist. NECK: Normal AROM. Supple. CHEST: No respiratory distress. HEART: Regular rate Normal peripheral pulses. EXTREMITIES: Normal range of motion. Mild edema and mild TTP to the distal phalanx of the R. 3rd finger. The R 3rd finger is without erythema, drainage, fluctuance, lymphatic streaking. There is a small callus noted to the palmar aspect of the distal phalanx of the R. 3rd finger, immediately distal to the DIP joint. +DNVI +FROM to the R. 3rd finger SKIN: Warm, dry, no rash. Capillary refill normal. Normal skin turgor. NEURO: No focal deficits. Alert and oriented x3. Gait steady. PSYCH: Normal affect. No signs of depression or anxiety. 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 No severe pain. No fluctuance. Will treat with clinda, close f/u with PCP--aware of strict go to ER precautions. Discussed elevated blood pressure readings with patient and advised daily BP monitoring and f/u with PCP if persisting. Differential Diagnosis Differential Diagnosis: cellulitis (purulent vs nonpurulent), paronychia, felon Medical Records I have reviewed the following patient records and this information was taken into consideration when formulating the assessment and plan.: previous ER visits Discharge Plan Discharge Clinical Impression: Cellulitis of right middle finger, HTN (hypertension) Patient Disposition: Home Condition: Stable Instructions: Antibiotic Form, Cellulitis (ED) Additional Instructions: Go straight to ER should your symptoms become worse or should any new symptoms develop Patient Language: Amharic Prescriptions: New clindamycin HCl [Cleocin HCl] 150 mg capsule 450 mg PO Q8H 7 Days Qty: 63 0RF No Action atorvastatin 80 mg tablet 80 mg PO DAILY tamsulosin 0.4 mg capsule 0.4 mg PO DAILY amlodipine 10 mg tablet 10 mg PO DAILY omeprazole 20 mg capsule,delayed release(DR/EC) 20 mg PO DAILY hydrochlorothiazide 25 mg tablet 25 mg PO DAILY losartan 100 mg tablet 100 mg PO DAILY sertraline 50 mg tablet 50 mg PO DAILY Jardiance 25 mg tablet 25 mg PO DAILY metformin 1,000 mg tablet 1,000 mg PO BID temazepam 30 mg capsule 30 mg PO DAILY rosuvastatin 20 mg tablet 20 mg PO DAILY fenofibrate 160 mg tablet 160 mg PO DAILY Follow-up/Referrals: UNKNOWN,DOCTOR [Non-Staff] - 08/13/25 Stand Alone Forms: Work/School Release IP Time of Disposition: 12:33
[2025-08-12 12:29] VITALS: BP 162/87; PULSE 79; RESP 16; TEMP 36.6; O2SAT 100
== END 2025-08-12 12:40 | disposition home or self-care (01) ==
PROVIDERS: Emergency Provider Registered Nurse
DX: L03.011 Cellulitis of right finger (principal); I10 Essential (primary) hypertension; E11.9 Type 2 diabetes mellitus without complications; Z79.84 Long term (current) use of oral hypoglycemic drugs; E78.00 Pure hypercholesterolemia, unspecified; K21.9 Gastro-esophageal reflux disease without esophagitis
CPT/HCPCS: 99213; G0463